=== PATIENT | male | born 1945 | race Caucasian/White ===

== ENCOUNTER 2019-09-27 08:50 | Outpatient (CLI) | payer MEDICARE, SELFPAY ==
--- NOTE | ~2019-09-27 | US_ITS ---
EXAMINATION:US venous doppler LE LT INDICATION:Left leg swelling TECHNIQUE: Multiple grayscale, color flow and Doppler images of the left lower extremity deep venous systems were obtained and reviewed. COMPARISON:No prior studies for comparison. FINDINGS: The common femoral, superficial femoral and popliteal veins demonstrate normal respiratory variation, augmentation and compressibility. Color flow is also seen within the posterior tibial, pe roneal, greater saphenous and profunda veins. IMPRESSION: 1: No lower extremity deep venous thrombosis. Reviewed, dictated and finalized at location A.
[2019-09-27 09:05] LABS: Hematocrit 40.2 % (37.0-46.0); Hemoglobin 13.6 g/dL (12.4-15.3); Mean Corpuscular HGB Conc 33.8 g/dL (32.0-36.0); Mean Corpuscular Hemoglobin 29.9 pg (27.0-31.0); Mean Corpuscular Volume 88.4 fL (78.0-102.0); Mean Platelet Volume 9.4 fl (8.7-11.0); Platelet Count Result 267 K/mm3 (150-420); Red Blood Count 4.55 M/mm3 (4.70-6.10); Red Cell Distribution Width 12.4 % (11.6-14.4); White Blood Count 9.7 K/mm3 (4.8-10.8)
[2019-09-27 09:25] LABS: BNP 24.1 pg/mL (0-100)
[2019-09-27 09:47] LABS: Alanine Aminotransferase 24 U/L (16-63); Albumin Level 3.3 g/dL (3.4-5.0); Alkaline Phosphatase 92 U/L (46-116); Anion Gap 12.5 mmol/L (7-16); Aspartate Amino Transferase 22 U/L (15-37); Bilirubin,Total 0.3 mg/dL (0.00-1.00); Blood Urea Nitrogen 17 mg/dL (7-18); Calcium 8.9 mg/dL (8.5-10.1); Carbon Dioxide 31 mmol/L (21-32); Chloride 95 mmol/L (98-108); Estimated Glomerular Filt Rate > 60; Glucose 246 mg/dL (70-99); Osmolality Calculated 287 mOsm/kg (285-295); Potassium 4.5 mmol/L (3.5-5.1); Sodium 134 mmol/L (136-145); Total Protein 6.5 g/dL (6.4-8.2)
== END 2019-09-27 08:51 | disposition home or self-care (01) ==
LOC: CHSLAB 08:57
PROVIDERS: PCP Family Medicine; Visit Provider Family Medicine
DX: R60.0 Localized edema (principal)
CPT/HCPCS: 36415; 80053; 83880; 85027; 93971

== ENCOUNTER 2019-11-07 06:15 | Emergency (ER) | payer MEDICARE, SELFPAY ==
[2019-11-07 06:15] VITALS: BP 146/68; PULSE 83; RESP 20; TEMP 36.6; O2SAT 97
--- NOTE | 2019-11-07 06:23 | ED.ANXIETY ---
HPI - Anxiety General Chief Complaint: Anxiety Stated Complaint: anxiety Time Seen by Provider: 11/07/19 06:23 Source: patient and EMS Limitations: no limitations History of Present Illness HPI narrative: Patient states that he has been having difficulty sleeping. His PCP recently adjusted his medications for his anxiety. He discontinued his amitriptyline and increased his BuSpar. Patient states been having significant worsening problems with anxiety, unable to sleep only for short periods of time. Patient does not feel there are any particular triggers or worries the be causing his problem. He denies any associated symptoms. He denies any other suicidal or homicidal thoughts. He feels that he just can't relax or sit still. complaint: anxiety Onset (ago): week(s) (2) Severity: severe Quality: constant History of similar episodes: Yes Provoking factors: medication change Relieving factors: nothing Exacerbating factors: nothing Associated symptoms: denies other symptoms Related Data Home Medications Medication Instructions Recorded Confirmed amitriptyline 25 mg tablet 25 mg PO .Bedtime tablet 09/27/19 11/07/19 amlodipine 10 mg tablet 10 mg PO DAILY 09/27/19 11/07/19 aspirin 81 mg tablet,delayed 81 mg PO DAILY 09/27/19 11/07/19 release atenolol 50 mg tablet 50 mg PO DAILY 09/27/19 11/07/19 buspirone 10 mg tablet 10 mg PO TID 09/27/19 11/07/19 gabapentin 800 mg tablet 800 mg PO QID tablet 09/27/19 11/07/19 hydrochlorothiazide 25 mg tablet 25 mg PO DAILY 09/27/19 11/07/19 isosorbide mononitrate 30 mg 30 mg PO DAILY 09/27/19 11/07/19 tablet,extended release 24 hr lisinopril 40 mg tablet 40 mg PO DAILY 09/27/19 11/07/19 tamsulosin 0.4 mg capsule 0.4 mg PO DAILY 09/27/19 11/07/19 tramadol 50 mg tablet 50 mg PO Q6H PRN 09/27/19 11/07/19 trazodone 100 mg tablet 100 mg PO .Bedtime tablet 09/27/19 11/07/19 insulin lispro [Humalog U-100 See Rx Instructions .ROUTE .COMPLEX 11/07/19 11/07/19 Insulin] Allergies Allergy/AdvReac Type Severity Reaction Status Date / Time No Known Allergies Allergy Verified 09/27/19 08:24 Review of Systems Review of Systems: All systems reviewed & are unremarkable except as noted in HPI and below PMFSH Past Medical History Medical History Depression DM2 (diabetes mellitus, type 2) History of [place] (myocardial infarction) Hypercholesteremia Hypertension Insomnia Surgical History Surgical History No pertinent past surgical history Social History Social History Smoking status: Never smoker Additional smoking assessment comments: Quit 30 years ago Additional living arrangements comments: . Additional occupation/education comments: Disabled. Exam Const: General: healthy appearing and no acute distress Nutritional Appearance: well nourished and obese centrally obese Orientation/consciousness: patient oriented x3 HENMT: Head: normal to inspection Ears: external ears normal General nose exam: Normal external nose present Face and sinus: normal facial exam Mouth: Yes lip normal Eyes: Conjunctivae: conjunctivae normal Pupils: Equal, round and reactive pupils present EOM: EOMs intact bilaterally Neck: Neck: normal visual inspection Chest: Chest palpation & inspection: normal inspection of the chest and abnormal inspection of the chest Resp: Effort & Inspection: normal respiratory effort Auscultation: clear to auscultation bilaterally Cardio: Rate: regular rate Rhythm: regular rhythm GI: GI Palp: Yes Soft to palpation Auscultation: normal bowel sounds Skin: General skin exam: normal color Rashes: no rashes Neuro: General: patient oriented x3 and no focal motor deficits Speech: normal speech Extrem: General: normal to inspection and no pedal edema Psych: Appearance: grossly normal and w
[2019-11-07 06:47] LABS: Basophils Absolute Auto 0.06 K/mm3 (0.00-0.10); Basophils Percent Auto 0.7 % (0.0-1.0); Eosinophils Absolute Auto 0.34 K/mm3 (0.02-0.50); Eosinophils Percent Auto 4.1 % (1.0-6.0); Hematocrit 39.2 % (37.0-46.0); Hemoglobin 13.4 g/dL (12.4-15.3); Immature Granulocyte Absolute 0.04 K/mm3 (0.00-0.00); Immature Granulocyte Percent A 0.5 % (0.0-0.0); Lymphocytes Percent Auto 15.6 % (18.0-42.0); Mean Corpuscular HGB Conc 34.2 g/dL (32.0-36.0); Mean Corpuscular Volume 87.7 fL (78.0-102.0); Mean Platelet Volume 9.6 fl (8.7-11.0); Monocytes Absolute Auto 0.71 K/mm3 (0.10-0.90); Monocytes Percent Auto 8.5 % (2.0-11.0); Neutrophils Absolute Auto 5.9 K/mm3 (1.7-7.2); Neutrophils Percent Auto 70.6 % (50.0-70.0); Platelet Count Result 256 K/mm3 (150-420); Red Blood Count 4.47 M/mm3 (4.70-6.10); Red Cell Distribution Width 12.3 % (11.6-14.4); White Blood Count 8.3 K/mm3 (4.8-10.8)
[2019-11-07] MEDS: LORAZEPAM 0.5 MG TABLET ×2 (06:49→06:50)
[2019-11-07 06:57] LABS: Add Urine Microscopic? YES; Appearance Urine Clear (Clear); Bilirubin Urine Negative (Negative); Blood Urine Negative (Negative); Color Urine Yellow (Yellow); Glucose Urine UA 2+ (Negative); Ketones Urine Negative (Negative); Leukocyte Esterase Ur Negative LEU/UL (Negative); Nitrate Urine Negative (Negative); Protein Urine Negative (Negative); Specific Grav Ur 1.015 (1.010-1.020); Urobilinogen Urine 0.2 mg/dL (0.2-1.0)
[2019-11-07 07:01] LABS: Bacteria Urine None seen /hpf; RBC Urine 0-2 /hpf (0-2); WBC Urine 0-3 /hpf (0-3)
[2019-11-07 07:04] LABS: Amphetamine Screen Urine Negative (Negative); Barbiturate Screen Urine Negative (Negative); Benzodiazepines Screen Urine Negative (Negative); Cannabinoid Screen Urine Negative (Negative); Cocaine Screen Urine Negative (Negative); Methadone Screen Urine Negative (Negative); Opiate Screen Urine Negative (Negative); Phencyclidine Screen Urine Negative (Negative)
[2019-11-07 07:07] LABS: Alanine Aminotransferase 24 U/L (16-63); Alkaline Phosphatase 109 U/L (46-116); Aspartate Amino Transferase 18 U/L (15-37); Bilirubin,Total 0.4 mg/dL (0.00-1.00); Blood Urea Nitrogen 13 mg/dL (7-18); Calcium 8.3 mg/dL (8.5-10.1); Carbon Dioxide 30 mmol/L (21-32); Chloride 94 mmol/L (98-108); Estimated CRCL calculation 78 ml/min; Estimated Glomerular Filt Rate > 60; Glucose 224 mg/dL (70-99); Osmolality Calculated 279 mOsm/kg (285-295); Sodium 131 mmol/L (136-145); Thyroid Stimulating Hormone 1.39 uIU/mL (0.36-3.74); Total Protein 6.8 g/dL (6.4-8.2)
[2019-11-07 07:08] LABS: Ethanol < 3 mg/dL (0-6)
--- NOTE | 2019-11-07 07:45 | PC.NURSE ---
Pt. given d/c info on [facility] therapy for f/u c # to call/pamphlet explaining program and info. on f/u c his PMD today. Pt. and state understanding.
[2019-11-07 07:47] VITALS: BP 142/71; PULSE 80; RESP 18; TEMP 36.6; O2SAT 97
== END 2019-11-07 07:54 | disposition home or self-care (01) ==
PROVIDERS: Emergency Provider Emergency Medicine; PCP Family Medicine
DX: F41.9 Anxiety disorder, unspecified (principal); Z79.899 Other long term (current) drug therapy; E11.9 Type 2 diabetes mellitus without complications; E78.00 Pure hypercholesterolemia, unspecified; I10 Essential (primary) hypertension
CPT/HCPCS: 36415; 80053; 80307; 81001; 84443; 85025; 99282; 99283; A9270

== ENCOUNTER 2019-12-24 09:07 | Outpatient (CLI) | payer MEDICARE, SELFPAY ==
[2019-12-24 10:17] LABS: Prostate Specific Antigen 0.7 ng/mL (< OR = 4.0)
== END 2019-12-24 09:08 | disposition home or self-care (01) ==
LOC: CHSLAB 09:10
PROVIDERS: PCP Family Medicine; Visit Provider Family Medicine
DX: R35.0 Frequency of micturition (principal); R30.0 Dysuria
CPT/HCPCS: 36415; 84153; 87086

== ENCOUNTER 2021-09-16 11:03 | Outpatient (CLI) | payer MEDICARE, SELFPAY ==
[2021-09-16 11:36] LABS: Hematocrit 42.2 % (37.0-46.0); Mean Corpuscular HGB Conc 33.2 g/dL (32.0-36.0); Mean Corpuscular Hemoglobin 29.4 pg (27.0-31.0); Mean Corpuscular Volume 88.5 fL (78.0-102.0); Mean Platelet Volume 10.3 fl (8.7-11.0); Platelet Count Result 279 K/mm3 (150-420); Red Blood Count 4.77 M/mm3 (4.70-6.10); Red Cell Distribution Width 12.2 % (11.6-14.4); White Blood Count 9.4 K/mm3 (4.8-10.8)
[2021-09-16 11:49] LABS: Hemoglobin A1C 6.8 % (<5.7)
[2021-09-16 12:01] LABS: Alanine Aminotransferase 21 U/L (16-63); Albumin Level 3.2 g/dL (3.4-5.0); Alkaline Phosphatase 91 U/L (46-116); Anion Gap 5 mmol/L (8-16); Aspartate Amino Transferase 19 U/L (15-37); Bilirubin,Total 0.4 mg/dL (0.00-1.00); Blood Urea Nitrogen 14 mg/dL (7-18); Calcium 8.9 mg/dL (8.5-10.1); Carbon Dioxide 30 mmol/L (21-32); Chloride 93 mmol/L (98-108); Cholesterol 164 mg/dL (0-200); Estimated Glomerular Filt Rate > 60; Glucose 229 mg/dL (70-99); HDL Direct 38 mg/dL (40-60); LDL Cholesterol Calculated 93 mg/dL (<130); Osmolality Calculated 273 mOsm/kg (285-295); Potassium 4.2 mmol/L (3.5-5.1); Sodium 128 mmol/L (136-145); Total Protein 6.5 g/dL (6.4-8.2); Triglycerides 163 mg/dL (0-150)
== END 2021-09-16 11:04 | disposition home or self-care (01) ==
LOC: CHSLAB 11:05
PROVIDERS: PCP Family Medicine; Visit Provider Family Medicine
DX: E11.9 Type 2 diabetes mellitus without complications (principal); I10 Essential (primary) hypertension
CPT/HCPCS: 36415; 80053; 80061; 83036; 85027

== ENCOUNTER 2021-09-30 12:10 | Outpatient (CLI) | payer MEDICARE, SELFPAY ==
[2021-09-30 12:24] LABS: Hematocrit 42.6 % (37.0-46.0); Hemoglobin 14.1 g/dL (12.4-15.3); Mean Corpuscular HGB Conc 33.1 g/dL (32.0-36.0); Mean Corpuscular Volume 90.6 fL (78.0-102.0); Platelet Count Result 268 K/mm3 (150-420); Red Cell Distribution Width 12.6 % (11.6-14.4); White Blood Count 8.9 K/mm3 (4.8-10.8)
[2021-09-30 13:34] LABS: Alanine Aminotransferase 24 U/L (16-63); Albumin Level 3.4 g/dL (3.4-5.0); Alkaline Phosphatase 91 U/L (46-116); Anion Gap 9 mmol/L (8-16); Aspartate Amino Transferase 20 U/L (15-37); Bilirubin,Total 0.3 mg/dL (0.00-1.00); Blood Urea Nitrogen 15 mg/dL (7-18); Calcium 8.9 mg/dL (8.5-10.1); Carbon Dioxide 28 mmol/L (21-32); Chloride 100 mmol/L (98-108); Estimated Glomerular Filt Rate > 60; Glucose 103 mg/dL (70-99); Osmolality Calculated 284 mOsm/kg (285-295); Potassium 4.6 mmol/L (3.5-5.1); Sodium 137 mmol/L (136-145); Total Protein 6.7 g/dL (6.4-8.2)
== END 2021-09-30 12:11 | disposition home or self-care (01) ==
LOC: CHSLAB 12:11
PROVIDERS: PCP Family Medicine; Visit Provider Family Medicine
DX: R35.0 Frequency of micturition (principal)
CPT/HCPCS: 36415; 80053; 85027

== ENCOUNTER 2021-10-06 10:13 | Outpatient (CLI) | payer MEDICARE, SELFPAY ==
--- NOTE | ~2021-10-06 | US_ITS ---
EXAMINATION: US pelvic limited INDICATION: Abnormal frequency of urination TECHNIQUE: Targeted sonographic images of the bladder are obtained pre and post void. COMPARISON: None available FINDINGS: The bladder appears normal. No bladder wall thickening or mass are identified. Prevoid volu me is 295.8 cc. Postvoid volume is 10.1 cc. IMPRESSION: 1. Unremarkable bladder with normal post void residual. Reviewed, dictated and finalized at location F.
== END 2021-10-06 10:14 | disposition home or self-care (01) ==
LOC: CHSIMG 10:15
PROVIDERS: PCP Family Medicine; Visit Provider Family Medicine
DX: R35.0 Frequency of micturition (principal)
CPT/HCPCS: 76857

== ENCOUNTER 2021-12-23 13:27 | Outpatient (CLI) | payer MEDICARE, SELFPAY ==
[2021-12-23 14:30] LABS: Prostate Specific Antigen 0.7 ng/mL (< OR = 4.0)
== END 2021-12-23 13:28 | disposition home or self-care (01) ==
LOC: CHSLAB 13:28
PROVIDERS: PCP Family Medicine; Visit Provider Family Medicine
DX: R35.0 Frequency of micturition (principal)
CPT/HCPCS: 36415; 84153; G0103

== ENCOUNTER 2021-12-31 05:35 | Emergency (ER) | payer MEDICARE, SELFPAY ==
[2021-12-31 05:35] VITALS: BP 189/70; PULSE 76; RESP 18; TEMP 36.5; O2SAT 98
--- NOTE | 2021-12-31 06:04 | PC.NURSE ---
REPORTS SIMILAR EPISODE 2 WEEKS AGO, PMD INCREASED HIS INSOMNIA MEDICATION, SCHEDULED A SLEEP STUDY. PT IS NOW REPORTING HE HURTS ALL OVER , BUT NOTHING OUT OF THE NORMAL FOR HIM. PT HAS HX OF NEUROPATHY.
--- NOTE | 2021-12-31 06:10 | ED.ANXIETY ---
HPI - Anxiety General Chief Complaint: Anxiety Stated Complaint: Insomnia Time Seen by Provider: 12/31/21 05:39 Source: patient, family and RN notes reviewed Mode of arrival: ambulatory Limitations: no limitations History of Present Illness HPI narrative: restless legs with pain, causing insomnia. no acute chest pain or SOB. no falls, head injury or generalized muscle and/or limb activity. Onset (ago): hour(s) (4) Symptoms: extremity numbness/tingling and muscle cramps Severity: moderate Quality: constant History of similar episodes: Yes Provoking factors: none known Relieving factors: medication Exacerbating factors: nothing Related Data Home Medications Medication Instructions Recorded Confirmed amlodipine 10 mg tablet 10 mg PO DAILY 09/27/19 12/31/21 aspirin 81 mg tablet,delayed 81 mg PO DAILY 09/27/19 12/31/21 release (Adult Low Dose Aspirin) gabapentin 800 mg tablet 800 mg PO TID 09/27/19 12/31/21 isosorbide mononitrate 30 mg 30 mg PO DAILY 09/27/19 12/31/21 tablet,extended release 24 hr lisinopril 40 mg tablet 40 mg PO DAILY 09/27/19 12/31/21 insulin lispro 100 unit/mL See Rx Instructions .Route .COMPLEX 11/07/19 12/31/21 subcutaneous solution (Humalog U-100 Insulin) buspirone 10 mg tablet 10 mg PO BID 12/31/21 12/31/21 quetiapine 50 mg tablet (Seroquel) 100 mg PO QHS 12/31/21 12/31/21 tramadol 50 mg tablet 100 mg PO TID 12/31/21 12/31/21 trazodone 50 mg tablet 50 mg PO HS 12/31/21 12/31/21 Allergies Allergy/AdvReac Type Severity Reaction Status Date / Time No Known Allergies Allergy Verified 12/31/21 05:41 Review of Systems Review of Systems: All systems reviewed & are unremarkable except as noted in HPI and below Constitutional: Constitutional: Reports no additional constitutional complaints Eyes: Eyes: Reports no additional eye complaints ENT: Reports system reviewed and no additional complaints, except as documented Cardiovascular: Cardiovascular: Reports no additional cardiovascular complaints Respiratory: Respiratory: Reports no additional respiratory complaints Gastrointestinal: Gastrointestinal: Reports no additional gastrointestinal complaints Musculoskeletal: Musculoskeletal: Reports myalgias and Reports muscle cramps Comments: restless legs. no generalized Integumentary/Breasts: Skin/Breast: Reports system reviewed and no additional complaints, except as docu Neurologic: Reports system reviewed and no additional complaints, except as documented Psychiatric: Psychiatric: Reports no additional psychiatric complaints Endocrine: Endocrine: Reports no additional endocrine complaints Hematologic/Lymphatic: Hematologic/Lymphatic: Reports no additional hematologic/lymphatic complaints Allergic/Immunologic: Allergic/Immunologic: Reports no additional allergic/immunologic complaints PMFSH Past Medical History Medical History Depression DM2 (diabetes mellitus, type 2) History of [place] (myocardial infarction) Hypercholesteremia Hypertension Insomnia Restless leg syndrome Surgical History Surgical History No pertinent past surgical history Social History Social History Smoking status: Former smoker (Quit 3 years ago) Additional smoking assessment comments: Quit 30 years ago Substance use type: does not use Additional living arrangements comments: . Additional occupation/education comments: Disabled. Exam Const: General: healthy appearing and no acute distress Nutritional Appearance: well nourished Orientation/consciousness: patient oriented x3 Limitations: no limitations Other: pt was very anxious and had restless legs, with no other acute limb movements. HENMT: Head: normal to inspection Ears: external ears normal, TM's normal bilaterally and EAC's normal General nose exam
[2021-12-31] MEDS: MORPHINE SULFATE (*CRX) 4 MG/ML INJ IM (06:14)
[2021-12-31 06:16] VITALS: BP 153/63; PULSE 78; RESP 18; O2SAT 98
[2021-12-31] MEDS: GABAPENTIN 400 MG CAPSULE 800 MG PO (06:18)
--- NOTE | 2021-12-31 06:28 | PC.NURSE ---
PT HAS BEEN MEDICATED, IS STANDING AT THE END OF THE STRETCHER MOANING TAPPING HIS FEET ON THE GROUND. AT BEDSIDE. WILL CONTINUE TO MONITOR.
--- NOTE | 2021-12-31 06:42 | PC.NURSE ---
PT IS NOW SITTING ON THE END OF THE STRETCHER SHAKING HIS LEGS AND ARMS, STATES NO IMPROVEMENT WITH MEDICATIONS. WILL CONTINUE TO MONITOR.
[2021-12-31] MEDS: LORazepam (*CRX) 0.5 MG TABLET PO (06:55)
[2021-12-31 07:16] VITALS: BP 168/72; PULSE 74; RESP 20; TEMP 36.6; O2SAT 98
== END 2021-12-31 07:18 | disposition home or self-care (01) ==
PROVIDERS: Emergency Provider Emergency Medicine; PCP Family Medicine
DX: E11.40 Type 2 diabetes mellitus with diabetic neuropathy, unspecified (principal); Z79.4 Long term (current) use of insulin; G25.81 Restless legs syndrome; E78.00 Pure hypercholesterolemia, unspecified; I10 Essential (primary) hypertension; Z87.891 Personal history of nicotine dependence
CPT/HCPCS: 96372; 99283; A9270; J2270

== ENCOUNTER 2022-01-17 10:39 | Emergency (ER) | payer MEDICARE, SELFPAY ==
[2022-01-17] VITALS (43 sets, daily range): BP systolic 59–93; BP diastolic 37–59; PULSE 60–74; RESP 14–34; TEMP 35.8–36.4; O2SAT 69–98
--- NOTE | ~2022-01-17 | CT_ITS ---
EXAMINATION: CT brain wo con DATE: 01/17/2022 11:40 INDICATION: Weakness. TECHNIQUE: Computed tomography (CT) of the head was performed without intravenous contrast. The mA wa s adjusted according to patient size. Iterative reconstruction technique was employed. The dose-lengt h product was 605.33 mGy-cm. COMPARISON: None FINDINGS: There are scattered areas of low attenuation in the cerebral white matter. There is a small old infarct in left frontal lobe. There is no intracranial hemorrhage, acute infarction, or abnormal intracranial mass lesion. The ventricles are normal in size. There is mucosal thickening in the para nasal sinuses. There are old fracture deformities of the nasal bones and nasal septum. The mastoid ai r cells are normal. There is cerumen in the external auditory canals. There are likely changes of ocu lar lens replacement surgeries. IMPRESSION: 1. 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 2. Moderate nonspecific cerebral white matter disease, which likely represents chronic small vessel i schemic disease. Reviewed, dictated and finalized at location A. IMPRESSION: 1. 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 2. Moderate nonspecific cerebral white matter disease, which likely represents chronic small vessel ischemic disease.
--- NOTE | ~2022-01-17 | CT_ITS ---
EXAMINATION: CT chest abdomen pelvis wo con DATE: 01/17/2022 11:46 CDT INDICATION: Weakness, shortness of breath, cough, fatigue and hypotension TECHNIQUE: Computed tomography (CT) of the chest, abdomen, and pelvis was performed without intraveno us contrast. The dose-length product was 1770.03 mGy-cm. Automated exposure control and iterative rec onstruction technique were employed. COMPARISON: None FINDINGS: CHEST CT: There is patchy bilateral airspace disease, consistent with pneumonia, likely superimposed on chronic interstitial fibrosis. No endobronchial lesions. No pneumothorax. There is mild lymphadenopathy in t he subcarinal location, likely reactive. There is atherosclerosis of the aorta and coronary arteries. Heart size normal. ABDOMEN/PELVIS CT: The liver, spleen, pancreas, adrenal glands and kidneys are unremarkable. Gallbladder is present. No abnormal pelvic masses or fluid collections. No free air or free fluid. Bladder is unremarkable. Ther e is atherosclerosis of the aorta without aneurysm. Small hiatal hernia. Nonobstructive bowel pattern . Moderate-severe lumbar spondylosis with grade 2 spondylolisthesis at L5-S1, secondary to bilateral spondylolysis. IMPRESSION: 1. Patchy bilateral airspace disease, consistent with pneumonia, likely superimposed on chronic pulmo nary fibrosis. Reviewed, dictated and finalized at location A. IMPRESSION: 1. Patchy bilateral airspace disease, consistent with pneumonia, likely superim posed on chronic pulmonary fibrosis.
--- NOTE | 2022-01-17 11:09 | ECG_ITS ---
Measurements Intervals [place] Rate: 65 P: 44 [place]: 164 QRS: 49 QRSD: 89 T: 22 QT: 379 QTc: 395 Interpretive Statements SINUS RHYTHM WITH FREQUENT VENTRICULAR PREMATURE COMPLEXES ABNORMAL RHYTHM ECG NO PREVIOUS ECG AVAILABLE FOR COMPARISON Electronically Signed On 01-17-2022 14:49:29 CDT by Manish Barragan M.D.
[2022-01-17 11:29] LABS: Basophils Absolute Auto 0.05 K/mm3 (0.00-0.10); Basophils Percent Auto 0.4 % (0.0-1.0); Eosinophils Absolute Auto 0.02 K/mm3 (0.02-0.50); Eosinophils Percent Auto 0.2 % (1.0-6.0); Hematocrit 57.7 % (37.0-46.0); Hemoglobin 18.9 g/dL (12.4-15.3); Immature Granulocyte Absolute 0.04 K/mm3 (0.00-0.00); Immature Granulocyte Percent A 0.4 % (0.0-0.0); Lymphocytes Absolute Auto 0.68 K/mm3 (1.10-4.50); Lymphocytes Percent Auto 6.1 % (18.0-42.0); Mean Corpuscular HGB Conc 32.8 g/dL (32.0-36.0); Mean Corpuscular Hemoglobin 29.9 pg (27.0-31.0); Mean Corpuscular Volume 91.2 fL (78.0-102.0); Mean Platelet Volume 10.7 fl (8.7-11.0); Monocytes Absolute Auto 0.64 K/mm3 (0.10-0.90); Monocytes Percent Auto 5.7 % (2.0-11.0); Neutrophils Absolute Auto 9.8 K/mm3 (1.7-7.2); Neutrophils Percent Auto 87.2 % (50.0-70.0); Platelet Count Result 118 K/mm3 (150-420); Red Blood Count 6.33 M/mm3 (4.70-6.10); Red Cell Distribution Width 13.1 % (11.6-14.4); White Blood Count 11.2 K/mm3 (4.8-10.8)
[2022-01-17] MEDS: SODIUM CHLORIDE 0.9% IV 1,000 ML 999 ML IV CONT ×3 (11:43→13:53)
[2022-01-17] MEDS: methylPREDNISolone SOD SUCC 125 MG VIAL IV PUSH (11:50)
[2022-01-17 11:51] LABS: Lactic Acid Reflex 3.1 mmol/L (0.4-2.0)
--- NOTE | 2022-01-17 11:52 | PC.NURSE ---
PT HAS RETURNED FROM CT, IVF INFUSING ORDERED WITHOUT DIFFICULTY. PT IS AWAITING RESPIRATORY FOR INHALERS AND EKG. AT BEDSIDE. PT DENIES ANY NEEDS OR COMPLAINTS. PT IS SITTING STRAIGHT UP ON STRETCHER WITH O2 IN PLACE. PT REMAINS TACHYEPNIC. WILL CONTINUE TO MONITOR. PT IS HYPOTENSIVE, ERP IS AWARE, IVF INFUSING.
[2022-01-17 12:00] LABS: Alanine Aminotransferase 57 U/L (16-63); Albumin Level 2.3 g/dL (3.4-5.0); Alkaline Phosphatase 86 U/L (46-116); Anion Gap 10 mmol/L (8-16); Aspartate Amino Transferase 215 U/L (15-37); Bilirubin,Total 0.5 mg/dL (0.00-1.00); Blood Urea Nitrogen 60 mg/dL (7-18); Calcium 8.8 mg/dL (8.5-10.1); Carbon Dioxide 25 mmol/L (21-32); Chloride 100 mmol/L (98-108); Estimated CRCL calculation 28 ml/min; Estimated Glomerular Filt Rate 23; Ethanol < 3 mg/dL (0-6); Glucose 188 mg/dL (70-99); Osmolality Calculated 301 mOsm/kg (285-295); Potassium 4.9 mmol/L (3.5-5.1); Sodium 135 mmol/L (136-145); Total Protein 6.4 g/dL (6.4-8.2); Troponin I 26.8 ng/L (0.00-60.4)
[2022-01-17 12:27] LABS: Base Excess ABG -3.8 mmol/L (0-2); HCO3 ABG 22.1 mmol/L (23-29); Oxygen Content ABG 15.9 %vol (16.0-22.0); Oxygen Saturation ABG 85.2 % (95-97); Oxyhemoglobin 84.9 % (94-100); PCO2 ABG 43.1 mmHg (35-45); PO2 ABG 59.5 mmHg (75-85); Total Hemoglobin 13.3 g/dL (12.0-18.0); pH ABG 7.33 (7.35-7.45)
--- NOTE | 2022-01-17 12:28 | PC.NURSE ---
LAB RETURNS TO BEDSIDE FOR ANOTHER ATTEMPT AT ABG COLLECTION. AT BEDSIDE. PT DENIES ANY NEEDS, DOES WANT TO SIT ON THE SIDE OF THE STRETCHER, ADVISED AGAINST THIS DUE TO BP AND DIZZINESS. PT HAS IVF INFUSING ORDERED WITHOUT DIFFICULTY. WILL CONTINUE TO MONITOR.
[2022-01-17 12:29] LABS: Device NASAL CANNULA; Modified Allen's Test Pass; Site Drawn RIGHT RADIAL
--- NOTE | 2022-01-17 12:36 | PC.NURSE ---
WATER PROVIDED TO PT. IVF COMPLETED. WILL CONTINUE TO MONITOR.
[2022-01-17 12:57] LABS: Influenza A QL RT-PCR Negative (Negative); Influenza B QL RT-PCR Negative (Negative); SARS-CoV-2 RNA PCR Negative (Negative)
[2022-01-17] MEDS: ALBUTEROL SULFATE (*SP) INHALER 2 PUFF INHALATION (13:03)
[2022-01-17] MEDS: UMECLIDINIUM BROMIDE 62.5 MCG ELLIPTA 1 PUFF INHALATION (13:04)
[2022-01-17] MEDS: AZITHROMYCIN 250 MG TABLET 500 MG PO (13:35)
[2022-01-17] MEDS: guaiFENesin 12 HR 600 MG TABCR PO (13:35)
--- NOTE | 2022-01-17 13:46 | PC.NURSE ---
PT WAS FOUND SITTING ON THE END OF THE STRETCHER, O2 OFF, MONITORS OFF. HAD LEFT, NO ONE WAS AWARE. PT STATES HIS BUTTOCKS AND BACK HURT FROM THE STRETCHER. PT STATES HE WANTS TO SIT IN THE CHAIR. PT ASSISTED TO CHAIR, O2 APPLIED AT 3L, MONITOR REAPPLIED. PT BP REMAINS LOW, ERP NOTIFIED AND MORE IVF ORDERED. HAS RETURNED. HOSPITALIST AT [facility] CONSULTED, DECLINES PT. HEALTH INSURANCE ADJUSTER NAKUL AT [facility] NOTIFIED AT THIS TIME. AWAITING RETURN CALL AT PRESENT. PT CURRENTLY HAS IVF AND IV MEDICATIONS INFUSING WITHOUT DIFFICULTY.
[2022-01-17 14:25] LABS: Reflex Lactic Acid Yes or No Add Lactic
--- NOTE | 2022-01-17 14:25 | PC.NURSE ---
TAMI ORELLANA RETURNS CALL AT THIS TIME.
--- NOTE | 2022-01-17 14:33 | PC.NURSE ---
PT HAS BEEN ACCEPTED TO [facility]. AWAITING ROOM ASSIGNMENT.
--- NOTE | 2022-01-17 14:35 | ED.WEAKNESS ---
HPI - Weakness General Chief complaint: Weakness Stated complaint: Blood pressure, and check heart Time Seen by Provider: 01/17/22 10:43 Source: patient, family, RN notes reviewed and old records reviewed Mode of arrival: wheelchair Limitations: no limitations History of Present Illness HPI Narrative: increasing SOB MD Complaint: generalized weakness and lack of energy Onset (ago): day(s) (2) Duration: constant and progressively worsening Location: generalized Severity: moderate Severity scale (1-10): 4 Relieving factors: none Exacerbating factors: exertion Associated symptoms: denies other symptoms, chest pain and loss of appetite Related Data Home Medications Medication Instructions Recorded Confirmed amlodipine 10 mg tablet 10 mg PO DAILY 09/27/19 01/17/22 aspirin 81 mg tablet,delayed 81 mg PO DAILY 09/27/19 01/17/22 release (Adult Low Dose Aspirin) isosorbide mononitrate 30 mg 30 mg PO DAILY 09/27/19 01/17/22 tablet,extended release 24 hr lisinopril 40 mg tablet 40 mg PO DAILY 09/27/19 01/17/22 insulin lispro 100 unit/mL See Rx Instructions .Route .COMPLEX 11/07/19 01/17/22 subcutaneous solution (Humalog U-100 Insulin) buspirone 10 mg tablet 10 mg PO BID 12/31/21 01/17/22 tramadol 50 mg tablet 100 mg PO TID 12/31/21 01/17/22 trazodone 50 mg tablet 50 mg PO HS 12/31/21 01/17/22 diazepam 5 mg tablet 5 mg PO PRN PRN Anxiety 01/17/22 01/17/22 tamsulosin 0.4 mg capsule 0.4 mg PO DAILY 01/17/22 01/17/22 Allergies Allergy/AdvReac Type Severity Reaction Status Date / Time No Known Allergies Allergy Verified 01/17/22 11:00 Review of Systems Review of Systems: All systems reviewed & are unremarkable except as noted in HPI and below Constitutional: Constitutional: Reports no additional constitutional complaints Eyes: Eyes: Reports no additional eye complaints ENT: Reports system reviewed and no additional complaints, except as documented Cardiovascular: Cardiovascular: Reports no additional cardiovascular complaints Respiratory: Respiratory: Reports no additional respiratory complaints Gastrointestinal: Gastrointestinal: Reports no additional gastrointestinal complaints Musculoskeletal: Musculoskeletal: Reports no additional musculoskeletal complaints Integumentary/Breasts: Skin/Breast: Reports system reviewed and no additional complaints, except as docu Neurologic: Reports system reviewed and no additional complaints, except as documented Psychiatric: Psychiatric: Reports no additional psychiatric complaints Endocrine: Endocrine: Reports no additional endocrine complaints Hematologic/Lymphatic: Hematologic/Lymphatic: Reports no additional hematologic/lymphatic complaints Allergic/Immunologic: Allergic/Immunologic: Reports no additional allergic/immunologic complaints [facility] Past Medical History Medical History Depression DM2 (diabetes mellitus, type 2) History of NC (myocardial infarction) Hypercholesteremia Hypertension Hypotension Insomnia Pneumonia Restless leg syndrome Surgical History Surgical History No pertinent past surgical history Social History Social History Smoking status: Former smoker (Quit 3 years ago) Additional smoking assessment comments: Quit 30 years ago Substance use type: does not use Additional living arrangements comments: . Additional occupation/education comments: Disabled. Exam Const: General: no acute distress and diaphoretic Nutritional Appearance: obese Orientation/consciousness: patient oriented x3 Limitations: no limitations HENMT: Head: normal to inspection Ears: external ears normal, TM's normal bilaterally and EAC's normal General nose exam: Normal external nose present and Normal nares present Face and sinus: normal facial exam and sinuses nontender Mouth:
[2022-01-17 15:04] LABS: Lactic Acid 0.7 mmol/L (0.4-2.0)
--- NOTE | 2022-01-17 15:10 | PC.NURSE ---
PT IS TO BE TRANSFERRED TO ROOM 213 AT [facility]. [facility] NOTIFIED AT THIS TIME.
--- NOTE | 2022-01-17 15:39 | PC.NURSE ---
PT WAS ACCEPTED UNDER DR GARCIA TO ROOM 213 AT [facility]. BLADDER SCAN WAS COMPLETED, 489ML NOTED IN BLADDER, STRAIGHT CATH COMPLETED 550ML DARK ORANGE OUTPUT NOTED. PT TOLERATED WELL.
[2022-01-17 15:42] LABS: Add Urine Microscopic? YES; Appearance Urine Clear (Clear); Bilirubin Urine Negative (Negative); Blood Urine Negative (Negative); Color Urine Yellow (Yellow); Glucose Urine UA Negative (Negative); Ketones Urine Trace (Negative); Leukocyte Esterase Ur Negative (Negative); Nitrate Urine Negative (Negative); Protein Urine Negative (Negative)
[2022-01-17 15:47] LABS: Amorphous Sediment Urine Few; Bacteria Urine None seen /hpf; RBC Urine None seen /hpf (0-2); Squamous Epithelial Cell Urine Rare /hpf (Few); WBC Urine None seen /hpf (0-3)
[2022-01-17 15:50] LABS: Amphetamine Screen Urine Negative (Negative); Barbiturate Screen Urine Negative (Negative); Benzodiazepines Screen Urine Positive (Negative); Cannabinoid Screen Urine Negative (Negative); Cocaine Screen Urine Negative (Negative); Methadone Screen Urine Negative (Negative); Opiate Screen Urine Negative (Negative); Phencyclidine Screen Urine Negative (Negative)
== END 2022-01-17 15:40 | disposition short-term general hospital (02) ==
PROVIDERS: Emergency Provider Emergency Medicine; PCP Family Medicine
DX: A41.9 Sepsis, unspecified organism (principal); E86.0 Dehydration; Z20.822 Contact with and (suspected) exposure to COVID-19; J18.9 Pneumonia, unspecified organism; E11.9 Type 2 diabetes mellitus without complications; E78.00 Pure hypercholesterolemia, unspecified; I10 Essential (primary) hypertension; Z87.891 Personal history of nicotine dependence; Z79.899 Other long term (current) drug therapy; Z79.4 Long term (current) use of insulin
CPT/HCPCS: 36415; 36600; 51701; 70450; 71250; 74176; 80053; 80307; 81001; 82805; 83605; 84484; 85025; 87040; 87502; 93005; 94640; 96361; 96365; 96375; 99285; A9270; C9803; J0696; J2930; J7030; U0003; U0005

== ENCOUNTER 2022-01-17 17:09 | Inpatient (IN) | payer MEDICARE, SELFPAY ==
[2022-01-17] VITALS (22 sets, daily range): BP systolic 77–105; BP diastolic 32–64; PULSE 64–73; RESP 13–20; TEMP 36.3; O2SAT 89–95; BMI 36.8
--- NOTE | ~2022-01-17 | US_ITS ---
US art doppler w press LE BI INDICATION: Pedal pulses TECHNIQUE: Segmental pressures and plethysmographic and Doppler waveforms of the brachial and lower e xtremity arteries were obtained. COMPARISON: None. FINDINGS: Right and left brachial artery pressures of 147 mm Hg and 147 mm Hg, respectively, are concordant (no rmal difference <= 30 mmHg). The right ankle-brachial index (MARCOS) is 0.67 (normal >= 0.9-1.0). The right great toe-brachial index (TBI) is 0.57 (normal >= 0.60). The left MARCOS is 0.76. The left TBI is 0.69. IMPRESSION: 1. Mildly decreased ankle brachial indices consistent with mild peripheral arterial disease. Reviewed, dictated and finalized at location A. IMPRESSION: 1. Mildly decreased ankle brachial indices consistent with mild peripheral cherise rial disease.
--- NOTE | ~2022-01-17 | US_ITS ---
US renal BI 01/18/2022 10:54 Procedure: Realtime transabdominal ultrasound of the kidneys and bladder. Indication: Acute renal insufficiency Comparison: CT dated 01/17/2022 Findings: Renal echotexture is normal bilaterally without hydronephrosis, contour deforming mass or r enal calculus. The right kidney measures 10.7 cm and left kidney measures 13.2 cm. There is a Liang c atheter. Impression: 1: Unremarkable renal ultrasound. No stones, masses or hydronephrosis. Reviewed, dictated and finalized at location A. Impression: 1: Unremarkable renal ultrasound. No stones, masses or hydronephrosis.
--- NOTE | ~2022-01-17 | XR_ITS ---
EXAMINATION: XR chest 1V portable DATE: 01/19/2022 05:39 INDICATION: Pneumonia. TECHNIQUE: A single frontal view of the chest was obtained on 2 radiographs. COMPARISON: Chest CT 01/17/2022, chest single view 01/18/2022 FINDINGS: The lung volumes are normal. There is a diffuse interstitial pattern in the lungs with a pe ripheral and lower lung predominance. A calcified right lung nodule is consistent with old granulomat ous disease. There are mild airspace opacities in the mid and lower lung zones. No pleural effusion o r pneumothorax. Cardiomegaly is noted. IMPRESSION: 1. Stable diffuse lung disease, likely a combination of pneumonia and chronic lung disease. 2. Cardiomegaly. Reviewed, dictated and finalized at location A. IMPRESSION: 1. Stable diffuse lung disease, likely a combination of pneumonia and chronic l stacey disease. 2. Cardiomegaly.
--- NOTE | ~2022-01-17 | XR_ITS ---
EXAMINATION: XR chest 1V portable INDICATION: Pneumonia TECHNIQUE: Portable AP chest at 0612 hours COMPARISON: 01/22/2022 FINDINGS: Diffuse interstitial and airspace opacities persist throughout all lung zones without signi ficant change. No pleural effusion or pneumothorax. Cardiomegaly is noted. IMPRESSION: 1. Stable diffuse lung disease, likely pneumonia on a background of chronic interstitial lung disease . 2. Cardiomegaly. Reviewed, dictated and finalized at location A. IMPRESSION: 1. Stable diffuse lung disease, likely pneumonia on a background of chronic int erstitial lung disease. 2. Cardiomegaly.
--- NOTE | ~2022-01-17 | XR_ITS ---
EXAMINATION: XR chest 1V portable DATE: 01/18/2022 05:32 INDICATION: Shortness of breath. Cough. TECHNIQUE: A single frontal view of the chest was obtained. COMPARISON: Chest 2 views 09/18/2012, chest CT 01/17/2022 FINDINGS: There is chronic mild elevation of right hemidiaphragm. There are mild patchy airspace opac ities in the mid and lower lung zones with a peripheral predominance. No pleural effusion or pneumoth orax. The heart size is normal. IMPRESSION: 1. Patchy airspace opacities in the mid and lower lung zones with a peripheral predominance, consiste nt with pneumonia. Reviewed, dictated and finalized at location A. IMPRESSION: 1. Patchy airspace opacities in the mid and lower lung zones with a peripheral predominance, consistent with pneumonia.
--- NOTE | ~2022-01-17 | XR_ITS ---
EXAMINATION: XR chest 1V portable INDICATION: Pneumonia TECHNIQUE: Portable AP chest at 0602 hours COMPARISON: 01/21/2022 FINDINGS: Interstitial and airspace opacities persist throughout all lung zones without significant c hange. No pleural effusion or pneumothorax. Cardiomegaly is noted. IMPRESSION: 1. Stable diffuse lung disease, likely pneumonia superimposed on chronic interstitial lung disease. 2. Cardiomegaly. Reviewed, dictated and finalized at location A. IMPRESSION: 1. Stable diffuse lung disease, likely pneumonia superimposed on chronic inters titial lung disease. 2. Cardiomegaly.
--- NOTE | ~2022-01-17 | XR_ITS ---
XR abdomen/kub 1V 01/20/2022 20:04 INDICATION: Constipation TECHNIQUE: KUB COMPARISON: None FINDINGS: Bowel gas pattern is normal. There are colonic fecal loading. There is no evidence of free air, mass, organomegaly, ascites or obstruction. No abnormal calculi are seen. The bones appear int act. There is mild lumbar spondylosis. IMPRESSION: 1: No acute abdominal abnormality identified. Reviewed, dictated and finalized at location A.
--- NOTE | ~2022-01-17 | XR_ITS ---
EXAMINATION: XR chest 1V portable DATE: 01/21/2022 05:43 INDICATION: Pneumonia. TECHNIQUE: A single frontal view of the chest was obtained. COMPARISON: Chest single view 01/20/2022 FINDINGS: The lung volumes are normal. There are airspace and interstitial opacities in the mid and l ower lung zones. No pleural effusion or pneumothorax. Cardiomegaly is noted. IMPRESSION: 1. Stable diffuse disease, likely a combination of pneumonia and chronic lung disease. 2. Cardiomegaly. Reviewed, dictated and finalized at location A. IMPRESSION: 1. Stable diffuse disease, likely a combination of pneumonia and chronic lung d isease. 2. Cardiomegaly.
--- NOTE | ~2022-01-17 | XR_ITS ---
EXAMINATION: XR chest 1V portable DATE: 01/20/2022 06:16 INDICATION: Pneumonia. TECHNIQUE: A single frontal view of the chest was obtained. COMPARISON: Chest single view 01/19/2022 FINDINGS: The lung volumes are normal. There are airspace and interstitial opacities in all lung zone s bilaterally. No pleural effusion or pneumothorax. Cardiomegaly is noted. IMPRESSION: 1. Stable diffuse lung disease, likely a combination of pneumonia and chronic lung disease. 2. Cardiomegaly. Reviewed, dictated and finalized at location A. IMPRESSION: 1. Stable diffuse lung disease, likely a combination of pneumonia and chronic l stacey disease. 2. Cardiomegaly.
[2022-01-17] MEDS: SODIUM CHLORIDE 0.9% IV 1,000 ML 150 ML IV CONT (17:00)
--- NOTE | 2022-01-17 17:03 | PC.NURSE ---
Pt received by ambulance at 1610 to room 213- pt drowsy- but awakens easily and is oriented x4 O2 @ 6 l/nc- spo2 88-90%; - SBP 80's on arrival to unit EMS had started another liter NS bolus in route for lo BP. ; Monitor SR- pt oriented to room and routines of floor- acknowledged understanding
[2022-01-17 17:50] LABS: Basophils Percent Auto 0.2 % (0.2-1.2); Eosinophils Percent Auto 0.1 % (0-4.4); Hematocrit 32.3 % (42.0-52.0); Hemoglobin 10.1 g/dL (14.0-18.0); Immature Granulocyte Absolute 0.23 K/mm3 (0.00-0.031); Immature Granulocyte Percent A 1.3 % (0-0.5); Lymphocytes Percent Auto 3.4 % (18.3-44.2); Mean Corpuscular HGB Conc 31.3 g/dl (32-36); Mean Corpuscular Hemoglobin 29.5 pg (26-34); Mean Corpuscular Volume 94.4 fl (80-100); Mean Platelet Volume 10.7 fl (7.4-10.4); Monocytes Absolute Auto 0.5 K/mm3 (0.1-0.6); Monocytes Percent Auto 2.6 % (2.6-8.5); Neutrophils Absolute Auto 16.3 K/mm3 (1.3-6.7); Neutrophils Percent Auto 92.4 % (45.5-73.1); Platelet Count Result 239 k/mm3 (150-375); Red Blood Count 3.42 M/mm3 (4.6-6.20); Red Cell Distribution Width 13.5 % (11.5-14.5); White Blood Count 17.6 K/mm3 (4.5-10.0)
[2022-01-17 18:00] LABS: Magnesium 2.1 mg/dL (1.6-2.3)
[2022-01-17 18:04] LABS: Ovalocytes 1+ (NORMAL); Platelet Estimate Adequate (Adequate)
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
[2022-01-17 18:20] LABS: Glucose Point of Care 163 mg/dl (65-105)
[2022-01-17 20:27] LABS: Appearance Urine Clear (Clear); Bilirubin Urine 2+ (Negative); Blood Urine 2+ (Negative); Color Urine Yellow (Yellow); Glucose Urine UA Negative (Negative); Ketones Urine Trace mg/dL (Negative); Leukocyte Esterase Ur Trace LEU/UL (Negative); Nitrate Urine Negative (Negative); Protein Urine 1+ mg/dL (Negative); Specific Grav Ur >= 1.030 (1.001-1.035)
[2022-01-17] MEDS: ENOXAPARIN 40 MG/0.4 ML SYRINGE SUB-Q (20:27)
[2022-01-17 20:36] LABS: Bacteria Urine Trace /hpf; Calcium Oxalate Crystals Urine Present /hpf; Hyaline Casts Urine 50+ /lpf; Mucus Urine Few /lpf; RBC Urine 21-50 /hpf (0-2); Squamous Epithelial Cell Urine Many /hpf (Few); WBC Clumps Urine Present /HPF; WBC Urine 21-30 /hpf
[2022-01-17 20:37] LABS: Add Urine Microscopic? YES
[2022-01-17 21:00] LABS: Glucose Point of Care 236 mg/dl (65-105)
[2022-01-17] MEDS: SODIUM CHLORIDE 0.9% IV 1,000 ML 999 ML IV CONT (21:04)
--- NOTE | 2022-01-17 21:25 | PC.NURSE ---
This patient, Bacilio Penn, was transferred to ICU 1 on 01/17/22 at 2125. Personal belongings sent with patient. Report given to KARTIK Choi. Appropriate documentation sent with patient. Patient's called and updated on condition and aware of transfer to ICU.
--- NOTE | 2022-01-17 21:41 | PC.NURSE ---
Sil Betancourt NP called to bedside for central line placement. En route.
--- NOTE | 2022-01-17 21:42 | PC.NURSE ---
This patient, Bacilio Penn, was received from [facility] on 01/17/22 at 2125. Patient/family oriented to unit policies and routines.
[2022-01-17] MEDS: NOREPINEPHRINE 8 MG/D5W 250 ML 8 MG/250 ML BAG 9.38 MG IV CONT (22:28)
--- NOTE | 2022-01-17 22:36 | P.PNCROSS_ITS ---
Event Note Event Note Event Note: I called Dr. Domínguez pipe wrapping machine operator at 9:00 p.m.. Patient's blood pressure would increase slightly with IV boluses. The patient is on his 5th IV bolus. Patient is septic from pneumonia. the pipe wrapping machine operator agreed that the patient needed to go to ICU and have a a central line placed. Patient will also need to be on Levophed.
--- NOTE | 2022-01-17 22:36 | PM.EVENT ---
Event Note Event Note Event Note: I called Dr. Domínguez publications writer at 9:00 p.m.. Patient's blood pressure would increase slightly with IV boluses. The patient is on his 5th IV bolus. Patient is septic from pneumonia. the publications writer agreed that the patient needed to go to ICU and have a a central line placed. Patient will also need to be on Levophed.
--- NOTE | 2022-01-17 22:40 | P.PNCROSS_ITS ---
Event Note Event Note Event Note: I called the therapeutic radiologist at 9:00 p.m. explain to the therapeutic radiologist that the pat ient was septic and that his blood pressure continued to drop. He has had 4 boluses and is on his 5th IV bolus. The therapeutic radiologist agreed that the patient needed to go to the ICU for a central line and possible Levophed. The patient was transferred to ICU.
--- NOTE | 2022-01-17 22:40 | PM.EVENT ---
Event Note Event Note Event Note: I called the inside account representative at 9:00 p.m. explain to the inside account representative that the patient was septic and that his blood pressure continued to drop. He has had 4 boluses and is on his 5th IV bolus. The inside account representative agreed that the patient needed to go to the ICU for a central line and possible Levophed. The patient was transferred to ICU.
--- NOTE | 2022-01-17 22:41 | WPDPROCEDUR ---
Procedures Central Line Placement Left Femoral: Central Line Date: 01/17/22 Central Line Time: 22:00 Consent: I have discussed with the patient and/or surrogate, the non-emergent placement of a central venous catheter, including its clinical necessity/indication and associated potential risks and complications. The patient and/or surrogate understand(s) and acknowledge(s) the need to proceed with central venous catheter insertion as an important element of the patient's clinical management. Time Out Performed: Yes Patient Position: supine Patient placed on monitor/pulse ox: Yes Provider Prep: Max. sterile barrier precautions Central line prep: 2% Chlorhexidine scrub and sterile full body sheet applied Local anesthesia used: lidocaine 1% Amount of anesthesia used (ml): 8 Sterile US Technique with sterile gel/sterile probe covers: Yes Central line lumen inserted: triple Vincentian: 7 Length (cm): 16 Depth of Insertion (cm): 15 Post Procedure: sutured in place, good blood return, all ports aspirated, flushed, capped, transparent dressing and hemostatic product Post procedure x-ray: other ( No x-ray needed as this is a femoral) Patient tolerated procedure: well Complications: none
[2022-01-18] VITALS (96 sets, daily range): BP systolic 83–149; BP diastolic 39–101; PULSE 68–87; RESP 14–29; TEMP 36.5–37.4; O2SAT 91–99
--- NOTE | 2022-01-18 00:28 | PCRCNOTE ---
2000 updraft tx was omitted due to patient being out of room when therapist arrived. Therapist then found out patient was getting sterile procedure.
[2022-01-18] MEDS: IPRATROPIUM BR 0.02% INH SOLN 0.5 MG/2.5 ML VIAL INHALATION ×2 (00:31→14:11)
[2022-01-18] MEDS: ALBUTEROL SULFATE NEB 2.5 MG/3 ML INH INHALATION ×2 (00:32→14:11)
[2022-01-18] MEDS: SODIUM CHLORIDE 0.9% IV 1,000 ML 75 ML IV CONT (02:04)
[2022-01-18] MEDS: VASOPRESSIN INJ 100 UNITS in DEXTROSE 5% 95 ML IV CONT (03:48)
[2022-01-18 04:24] LABS: Basophils Absolute Auto 0.1 K/mm3 (0.0-0.1); Basophils Percent Auto 0.3 % (0.2-1.2); Hematocrit 36.8 % (42.0-52.0); Hemoglobin 11.6 g/dL (14.0-18.0); Immature Granulocyte Absolute 0.82 K/mm3 (0.00-0.031); Lymphocytes Absolute Auto 0.72 K/mm3 (0.9-3.2); Lymphocytes Percent Auto 2.6 % (18.3-44.2); Mean Corpuscular HGB Conc 31.5 g/dl (32-36); Mean Corpuscular Hemoglobin 30.4 pg (26-34); Mean Corpuscular Volume 96.6 fl (80-100); Mean Platelet Volume 10.7 fl (7.4-10.4); Monocytes Absolute Auto 0.9 K/mm3 (0.1-0.6); Monocytes Percent Auto 3.3 % (2.6-8.5); Neutrophils Percent Auto 90.8 % (45.5-73.1); Platelet Count Result 297 k/mm3 (150-375); Red Blood Count 3.81 M/mm3 (4.6-6.20); Red Cell Distribution Width 13.3 % (11.5-14.5); White Blood Count 27.6 K/mm3 (4.5-10.0)
[2022-01-18 04:35] LABS: Lactic Acid Reflex 1.6 mmol/L (0.7-2.0); Magnesium 2.2 mg/dL (1.6-2.3); Phosphorus 8.6 mg/dL (2.5-4.5)
[2022-01-18 04:37] LABS: Hemoglobin A1C 6.8 % (<5.7)
[2022-01-18 04:51] LABS: Alanine Aminotransferase 67 U/L (6-50); Albumin Level 2.9 g/dL (3.5-5.1); Alkaline Phosphatase 93 U/L (38-126); Anion Gap 18 mmol/L (8-16); Aspartate Amino Transferase 214 U/L (17-59); Bilirubin,Total 0.6 mg/dL (0.2-1.3); Blood Urea Nitrogen 75 mg/dL (9-20); Calcium 7.9 mg/dL (8.4-10.2); Carbon Dioxide 13 mmol/L (22-30); Chloride 100 mmol/L (98-107); Estimated CRCL calculation 26 ml/min; Estimated Glomerular Filt Rate 21; Glucose 376 mg/dL (65-110); Potassium 6.6 mmol/L (3.4-5.0); Sodium 131 mmol/L (137-145)
[2022-01-18] MEDS: NOREPINEPHRINE 8 MG/D5W 250 ML 8 MG/250 ML BAG 45 MG IV CONT (04:56)
[2022-01-18] MEDS: INSULIN HUMAN REGULAR (*BKC) 100 UNITS/ML 10 UNITS IV PUSH (05:22)
[2022-01-18] MEDS: SODIUM BICARBONATE 8.4% 50 MEQ/50 ML SYRINGE IV PUSH ×2 (05:23)
[2022-01-18] MEDS: CENTRAL LINE FLUSH 10 ML IV PUSH ×4 (05:47→21:10)
[2022-01-18] MEDS: ALBUTEROL SULFATE NEB 2.5 MG/3 ML INH 10 MG INHALATION (05:56)
[2022-01-18] MEDS: CALCIUM GLUCONATE 1,000 MG/10 ML VIAL 1000 MG IV PUSH (05:58)
[2022-01-18 06:07] LABS: Glucose Point of Care 382 mg/dl (65-105)
[2022-01-18 06:36] LABS: Glucose Point of Care 386 mg/dl (65-105)
[2022-01-18 07:19] LABS: Glucose Point of Care 383 mg/dl (65-105)
[2022-01-18 07:56] LABS: Anion Gap 21 mmol/L (8-16); Blood Urea Nitrogen 79 mg/dL (9-20); Calcium 7.7 mg/dL (8.4-10.2); Carbon Dioxide 13 mmol/L (22-30); Chloride 100 mmol/L (98-107); Estimated CRCL calculation 29 ml/min; Estimated Glomerular Filt Rate 24; Glucose 392 mg/dL (65-110); Potassium 5.3 mmol/L (3.4-5.0); Sodium 134 mmol/L (137-145)
[2022-01-18] MEDS: KCL 20 MEQ/D5/0.45% SOD CHL 1,000 ML 150 ML IV CONT ×2 (08:28→14:29)
[2022-01-18] MEDS: HYDROCORTISONE SODIUM SUCCINATE 100 MG/2 ML VIAL IV PUSH ×3 (08:29→21:08)
--- NOTE | 2022-01-18 08:35 | WPDCNINT ---
Assessment and Plan Assessment and plan (1) Septic shock: Code(s): A41.9 - Sepsis, unspecified organism; R65.21 - Severe sepsis with septic shock Status: Acute Assessment and Plan: Patient presented with generalized weakness, was found to be hypotensive, CT scan of the chest abdomen pelvis showed bilateral pneumonia, patient also complaining of bouts of coughing, found to be in acute kidney injury with hyperglycemia and DKA -patient received 4-5 L IV fluid bolus, central line was inserted and patient started on vasopressors -currently on Levophed and vasopressin -added stress dose steroids -Solu-Cortef -decreased urine output but slight improvement in creatinine -continue ceftriaxone, azithromycin (01/17) will add vancomycin (01/18) -maintain MAP > than 65 mmHg for adequate end organ perfusion -monitor renal function and urine output (2) Pneumonia: Code(s): J18.9 - Pneumonia, unspecified organism Status: Acute Assessment and Plan: 01/17/2022 CT scan of the chest abdomen and pelvis at the outside hospital showed she bilateral airspace disease consistent with pneumonia likely superimposed on chronic pulmonary fibrosis -patient with leukocytosis pulse, cough -continue antibiotics as above -will add anti-tussive meds (3) Diabetic ketoacidosis: Code(s): E11.10 - Type 2 diabetes mellitus with ketoacidosis without coma Status: Acute Assessment and Plan: Patient has a history of diabetes type 2 on insulin pump -pump is currently disconnected, -patient with diabetic ketoacidosis with hyperglycemia, with an anion gap metabolic acidosis -patient started on insulin infusion (4) Acute kidney injury: Code(s): N17.9 - Acute kidney failure, unspecified Status: Acute Assessment and Plan: Acute kidney injury likely related to septic shock, hypovolemia, hypotension, decreased p.o. intake, home medications (lisinopril, carvedilol, amlodipine, isosorbide mononitrate -patient adequately fluid-resuscitated -on vasopressors, will maintain MAP > 65 mmHg for adequate renal perfusion -continue to monitor renal function, electrolytes urine output -will check urine lytes and renal ultrasound, CK level on urine eosinophils Plan Check renal ultrasound Urine lytes Add vancomycin Stress dose steroids Additional Plan DVT prophylaxis: Renally dosed enoxaparin Stress ulcer prophylaxis: Protonix Nutrition: Clear liquid diet Code status: Full code Critical care time spent: 53 minutes Discussed with patient updated with his condition and plan of care. I answered all questions This dictation may have been done utilizing a voice recognition system. Attempts have been made to correct errors. However, there may be uncorrected grammatical, spelling, and recognition errors present. Due to a high probability of clinically significant, life threatening deterioration, the patient required my highest level of preparedness to intervene emergently and I personally spent this critical care time directly and personally managing the patient. This critical care time included obtaining a history; examining the patient; pulse oximetry; ordering and review of studies; arranging urgent treatment with development of a management plan; evaluation of patient's response to treatment; frequent reassessment; and discussions with other providers. It was exclusive of separately billable procedures and treating other patients and teaching time. Please see Assessment and Plan section and the rest of the note for further information on patient assessment and treatment [employer] Consult Note Consult date: 01/18/22 Reason for consult: Septic shock, pneumonia, generalized weakness hypotension, acute kidney injury with leukocytosis, diabetic ketoacidosis HPI: Bacilio Penn is a 76 year old male past medical history of diabetes type 2, history of family, depression, hypercholesterolemia, essential hypertension, pneumonia, rest
[2022-01-18 08:36] LABS: Glucose Point of Care 417 mg/dl (65-105)
[2022-01-18] MEDS: INSULIN HUMAN REGULAR (*BKC) 100 UNITS in SODIUM CHLORIDE 0.9% IV 99 ML 7.1 UNITS IV CONT (08:40)
[2022-01-18] MEDS: SERTRALINE HCL 50 MG TABLET 100 MG PO (08:49)
[2022-01-18] MEDS: busPIRone HCL 10 MG TABLET PO ×2 (08:49→21:08)
[2022-01-18] MEDS: ASPIRIN 81 MG ENTERIC TABLET PO (08:49)
[2022-01-18] MEDS: ATORVASTATIN 40 MG TABLET 80 MG PO (08:49)
--- NOTE | 2022-01-18 09:01 | PCRCNOTE ---
cnc machinist 2nd shift RT administered cont. neb tx at 0600, pt removed from tx at 0700, 0800 scheduled omitted due to cont. neb given. 1400 tx will be given as scheduled.
[2022-01-18 09:19] LABS: Glucose Point of Care 397 mg/dl (65-105)
[2022-01-18] MEDS: guaiFENesin/DEXTROMETHORPHAN 10 ML UDC PO (09:21)
[2022-01-18] MEDS: PREGABALIN (*CRX) 75 MG CAPSULE 150 MG PO ×2 (09:21→21:08)
[2022-01-18 10:15] LABS: Creatine Kinase 5648 U/L (55-170)
[2022-01-18 10:18] LABS: Glucose Point of Care 419 mg/dl (65-105)
[2022-01-18] MEDS: PANTOPRAZOLE SODIUM IV 40 MG VIAL IV PUSH (10:20)
[2022-01-18 11:23] LABS: Glucose Point of Care 475 mg/dl (65-105)
--- NOTE | 2022-01-18 12:06 | PCFNICU ---
ICU Rounding Note: Pt current nutrition is NPO. Last recorded weight is 120.6 kg Bowel Motility:No BM reported. Labs Reviewed:PO4 8.6, Glu 392, BUN 79, K 5.3,Alb 2.9,Hct 36.8,Hgb 11.6, HbA1c 6.8%. Meds Noted:Solu Medrol, Protonix, Vasopressin, Vancomycin, Zoloft, Buspar Skin: WNL Additional Notes: DKA admission,patient currently NPO. Plans for Renal US. COVID test pending. Following daily in ICU rounds.
[2022-01-18] MEDS: ONDANSETRON INJ 4 MG/2 ML VIAL IV PUSH (12:11)
[2022-01-18] MEDS: NOREPINEPHRINE 8 MG/D5W 250 ML 8 MG/250 ML BAG 31.88 MG IV CONT (12:16)
[2022-01-18 12:22] LABS: Glucose Point of Care 437 mg/dl (65-105)
[2022-01-18] MEDS: MICONAZOLE NITRATE 2% CREAM 30 GM TUBE 1 APPLIC TOPICAL ×2 (12:38→21:09)
[2022-01-18 13:11] LABS: SARS-CoV-2 RNA PCR Negative
[2022-01-18 13:29] LABS: Glucose Point of Care 371 mg/dl (65-105)
[2022-01-18] MEDS: BENZONATATE 100 MG CAPSULE 200 MG PO ×2 (13:42→17:44)
[2022-01-18 14:28] LABS: Glucose Point of Care 344 mg/dl (65-105)
[2022-01-18 14:28] LABS: Glucose Point of Care > 500 mg/dl (65-105)
[2022-01-18] MEDS: guaiFENesin/CODEINE (*CRX) 200/20 MG 10 ML SYRUP PO ×2 (14:28→22:11)
[2022-01-18] MEDS: INSULIN HUMAN REGULAR (*BKC) 100 UNITS in SODIUM CHLORIDE 0.9% IV 99 ML 21.8 UNITS IV CONT (14:29)
[2022-01-18 15:02] LABS: Creatinine Urine 81.9 mg/dL
[2022-01-18 15:07] LABS: Potassium Urine Random 50.5 meq/L
--- NOTE | 2022-01-18 15:07 | PM.IMPN ---
Progress Note: A&P Assessment and Plan (1) Septic shock: Code(s): A41.9 - Sepsis, unspecified organism; R65.21 - Severe sepsis with septic shock Status: Acute Assessment and Plan: Patient presented with generalized weakness, was found to be hypotensive, CT scan of the chest abdomen pelvis showed bilateral pneumonia, patient also complaining of bouts of coughing, found to be in acute kidney injury with hyperglycemia and DKA -patient received 4-5 L IV fluid bolus, central line was inserted and patient started on vasopressors -currently on Levophed and vasopressin -added stress dose steroids -Solu-Cortef -decreased urine output but slight improvement in creatinine -continue ceftriaxone, azithromycin (01/17) will add vancomycin (01/18) -maintain MAP > than 65 mmHg for adequate end organ perfusion -monitor renal function and urine output (2) Pneumonia: Code(s): J18.9 - Pneumonia, unspecified organism Status: Acute Assessment and Plan: 01/17/2022 CT scan of the chest abdomen and pelvis at the outside hospital showed she bilateral airspace disease consistent with pneumonia likely superimposed on chronic pulmonary fibrosis -patient with leukocytosis pulse, cough -continue antibiotics as above -will add anti-tussive meds (3) Diabetic ketoacidosis: Code(s): E11.10 - Type 2 diabetes mellitus with ketoacidosis without coma Status: Acute Assessment and Plan: Patient has a history of diabetes type 2 on insulin pump -pump is currently disconnected, -patient with diabetic ketoacidosis with hyperglycemia, with an anion gap metabolic acidosis -patient started on insulin infusion (4) Acute kidney injury: Code(s): N17.9 - Acute kidney failure, unspecified Status: Acute Assessment and Plan: Acute kidney injury likely related to septic shock, hypovolemia, hypotension, decreased p.o. intake, home medications (lisinopril, carvedilol, amlodipine, isosorbide mononitrate -patient adequately fluid-resuscitated -on vasopressors, will maintain MAP > 65 mmHg for adequate renal perfusion -continue to monitor renal function, electrolytes urine output -will check urine lytes and renal ultrasound, CK level on urine eosinophils (5) DM2 (diabetes mellitus, type 2): Code(s): E11.9 - Type 2 diabetes mellitus without complications Status: Chronic (6) Hypercholesteremia: Code(s): E78.00 - Pure hypercholesterolemia, unspecified Status: Chronic (7) Depression: Qualifiers: Depression Type: other depression Qualified Code(s): F32.89 - Other specified depressive episodes Code(s): F32.9 - Major depressive disorder, single episode, unspecified Status: Chronic (8) History of OH (myocardial infarction): Code(s): I25.2 - Old myocardial infarction Status: Acute (9) Diabetic neuropathy: Code(s): E11.40 - Type 2 diabetes mellitus with diabetic neuropathy, unspecified Status: Acute (10) Anxiety disorder due to general medical condition with panic attack: Code(s): F06.4 - Anxiety disorder due to known physiological condition; F41.0 - Panic disorder [episodic paroxysmal anxiety] Status: Acute (11) Hypotension: Code(s): I95.9 - Hypotension, unspecified Status: Acute (12) Dehydration: Code(s): E86.0 - Dehydration Status: Inactive (13) BPH (benign prostatic hyperplasia): Code(s): N40.0 - Benign prostatic hyperplasia without lower urinary tract symptoms Status: Acute Additional Plan 01/18/2022 interval history: patient presented with shortness of breath is found to have bilateral pneumonia and septic shock hypotensive he was vigorously hydrated and was placed on 2 pressors norepinephrine and vasopressin as well as stress dose steroids, patient being treated with azithromycin, ceftriaxone and vancomycin, discussed with senior asp net developer patient clinical symptoms are improving not requiring as presso
[2022-01-18 15:08] LABS: Sodium Urine Random < 5 meq/L
[2022-01-18 15:26] LABS: Glucose Point of Care 298 mg/dl (65-105)
[2022-01-18] MEDS: PROCHLORPERAZINE EDISYLATE 10 MG/2 ML VIAL IV PUSH (15:36)
[2022-01-18 15:39] LABS: Anion Gap 13 mmol/L (8-16); Blood Urea Nitrogen 81 mg/dL (9-20); Calcium 7.9 mg/dL (8.4-10.2); Carbon Dioxide 19 mmol/L (22-30); Chloride 99 mmol/L (98-107); Estimated CRCL calculation 34 ml/min; Estimated Glomerular Filt Rate 29; Glucose 331 mg/dL (65-110); Potassium 4.3 mmol/L (3.4-5.0); Sodium 131 mmol/L (137-145)
[2022-01-18 15:40] LABS: Eosinophil Urine None Seen % (None Seen)
[2022-01-18 16:25] LABS: Glucose Point of Care 248 mg/dl (65-105)
[2022-01-18] MEDS: SODIUM CHLORIDE 0.9% IV 1,000 ML 150 ML IV CONT (16:25)
[2022-01-18 17:28] LABS: Glucose Point of Care 200 mg/dl (65-105)
[2022-01-18] MEDS: METOCLOPRAMIDE HCL INJ 10 MG/2 ML VIAL 5 MG IV PUSH ×2 (17:45→23:57)
[2022-01-18 18:50] LABS: Glucose Point of Care 146 mg/dl (65-105)
[2022-01-18 19:26] LABS: Glucose Point of Care 124 mg/dl (65-105)
[2022-01-18] MEDS: INSULIN HUMAN REGULAR (*BKC) 100 UNITS in SODIUM CHLORIDE 0.9% IV 99 ML 9.5 UNITS IV CONT (19:30)
[2022-01-18 20:02] LABS: Anion Gap 9 mmol/L (8-16); Blood Urea Nitrogen 76 mg/dL (9-20); Calcium 8.1 mg/dL (8.4-10.2); Carbon Dioxide 23 mmol/L (22-30); Chloride 103 mmol/L (98-107); Estimated CRCL calculation 40 ml/min; Estimated Glomerular Filt Rate 35; Glucose 108 mg/dL (65-110); Potassium 4.2 mmol/L (3.4-5.0); Sodium 135 mmol/L (137-145)
--- NOTE | 2022-01-18 20:29 | PC.NURSE ---
Spoke with Dr. Rockwell regarding BMP result. Stop insulin drip. Give 40 units of Lantus x1 now. Start High dose SSI. Hold Seroquel for tonight.
[2022-01-18 20:54] LABS: Glucose Point of Care 110 mg/dl (65-105)
[2022-01-18] MEDS: INSULIN GLARGINE (*BKC) 100 UNITS/ML 40 UNITS SUB-Q (21:08)
[2022-01-18] MEDS: ENOXAPARIN 30 MG/0.3 ML SYRINGE SUB-Q (21:09)
[2022-01-18] MEDS: SODIUM CHLORIDE 0.9% IV 1,000 ML 125 ML IV CONT (21:14)
[2022-01-18] MEDS: NOREPINEPHRINE 8 MG/D5W 250 ML 8 MG/250 ML BAG 11.25 MG IV CONT (22:00)
[2022-01-18 23:52] LABS: Glucose Point of Care 314 mg/dl (65-105)
[2022-01-18] MEDS: INSULIN ASPART (*BKC) 100 UNITS/ML SUB-Q (23:54)
[2022-01-19] VITALS (28 sets, daily range): BP systolic 116–144; BP diastolic 40–97; PULSE 72–94; RESP 20–31; TEMP 36.6–37.1; O2SAT 93–96
--- NOTE | 2022-01-19 | ECHO_ITS ---
Patient Info Name: Bacilio Penn Age: 76 years : 1945 Gender: Male Ht: 71 in Wt: 270 lbs BSA: 2.52 m2 HR: 80 bpm BP: 135 / 62 mmHg Heart Rhythm: Sinus Rhythm Technical Quality: Fair Exam Date: 01/19/2022 10:28 AM Exam Location: [facility] Pulmonary Exam Room: ICU1 Patient Status: Inpatient Admit Date: 01/17/2022 Staff Ordering Physician: Trev Martin MD Landmen: Kimberly Borges RCS Attending Provider: Hali Hale DO Exam Type: CA echo dop color flow w con Study Info Indications - CHF SEPSIS Complete two-dimensional, color flow and Doppler transthoracic echocardiogram is performed with contrast to opacify the left ventricle and to improve the deliniation of the left ventricle endocardial borders. Contrast/Agitated Saline Contrast/Ag. Saline: Definity Amount: 3.00 ml Administered By: Kimberly Borges Existing IV Access: Yes IV Access Condition: patent with no signs of infiltration Summary 1. Normal left ventricular size and thickness with good contractility of all segments. Calculated ejection fraction is 60 3%. Grade 2 diastolic dysfunction is noted. 2. Moderate left atrial enlargement. 3. Mild tricuspid regurgitation. 4. Moderate pulmonary hypertension, estimated pulmonary arterial systolic pressure is 63 mmHg. 5. Dilated inferior vena cava with <50% collapse upon inspiration consistent with elevated right atrial pressure, 10 mmHg. 6. Normal sinus rhythm. 7. Technically difficult study. Definity echo contrast used. Left Ventricle Left ventricular chamber dimension is normal. Left ventricular systolic function is normal, estimated at Empty. There is no increased left ventricular wall thickness. Left ventricular septal wall motion is normal. The left ventricular diastolic function is grade II diastolic dysfunction. Right Ventricle Right ventricular chamber dimension is normal. Right ventricular systolic function is normal. Left Atria Left atrial chamber dimension is moderately enlarged. Right Atria Right atrial chamber dimension is normal. Aortic Valve The aortic valve is trileaflet. There is no aortic valve sclerosis. There is no aortic valve stenosis. There is no aortic valve regurgitation. Pulmonic Valve The pulmonic valve is normal. There is no pulmonic valve stenosis. There is no pulmonic regurgitation. Mitral Valve The mitral valve has normal leaflets. There is no mitral valve stenosis. There is trace mitral valve regurgitation. Tricuspid Valve The tricuspid valve leaflets are normal. There is no significant tricuspid valve stenosis. There is mild tricuspid valve regurgitation. Moderate pulmonary hypertension, estimated pulmonary arterial systolic pressure is 63 mmHg. Pericardium/Pleural The pericardium appears normal. There is no pericardial effusion. Inferior Vena Cava Dilated inferior vena cava with <50% collapse upon inspiration consistent with elevated right atrial pressure, 10 mmHg. Aorta The aortic root size at the sinus of Valsalva is normal. The prox ascending aorta size is normal. Left Ventricular Outflow Tract Name Value Normal LVOT 2D LVOT Diameter
[2022-01-19] MEDS: ALBUTEROL SULFATE NEB 2.5 MG/3 ML INH INHALATION ×4 (01:51→20:21)
[2022-01-19] MEDS: IPRATROPIUM BR 0.02% INH SOLN 0.5 MG/2.5 ML VIAL INHALATION ×4 (01:51→20:21)
[2022-01-19] MEDS: guaiFENesin/CODEINE (*CRX) 200/20 MG 10 ML SYRUP PO ×5 (02:20→23:20)
[2022-01-19] MEDS: BENZONATATE 100 MG CAPSULE 200 MG PO ×3 (04:20→17:19)
[2022-01-19 04:31] LABS: Basophils Absolute Auto 0.1 K/mm3 (0.0-0.1); Basophils Percent Auto 0.2 % (0.2-1.2); Hemoglobin 10.4 g/dL (14.0-18.0); Immature Granulocyte Absolute 0.36 K/mm3 (0.00-0.031); Immature Granulocyte Percent A 1.5 % (0-0.5); Lymphocytes Absolute Auto 0.86 K/mm3 (0.9-3.2); Lymphocytes Percent Auto 3.5 % (18.3-44.2); Mean Corpuscular HGB Conc 32.5 g/dl (32-36); Mean Corpuscular Hemoglobin 30.1 pg (26-34); Mean Corpuscular Volume 92.5 fl (80-100); Mean Platelet Volume 10.4 fl (7.4-10.4); Monocytes Absolute Auto 1.2 K/mm3 (0.1-0.6); Neutrophils Absolute Auto 22.1 K/mm3 (1.3-6.7); Neutrophils Percent Auto 89.8 % (45.5-73.1); Platelet Count Result 269 k/mm3 (150-375); Red Blood Count 3.46 M/mm3 (4.6-6.20); Red Cell Distribution Width 13.4 % (11.5-14.5); White Blood Count 24.6 K/mm3 (4.5-10.0)
[2022-01-19 04:43] LABS: Alanine Aminotransferase 57 U/L (6-50); Albumin Level 2.5 g/dL (3.5-5.1); Alkaline Phosphatase 80 U/L (38-126); Anion Gap 8 mmol/L (8-16); Aspartate Amino Transferase 114 U/L (17-59); Bilirubin,Total 0.4 mg/dL (0.2-1.3); Blood Urea Nitrogen 70 mg/dL (9-20); Calcium 7.7 mg/dL (8.4-10.2); Carbon Dioxide 24 mmol/L (22-30); Chloride 103 mmol/L (98-107); Estimated CRCL calculation 50 ml/min; Estimated Glomerular Filt Rate 46; Glucose 271 mg/dL (65-110); Lactic Acid Reflex 1.8 mmol/L (0.7-2.0); Magnesium 2.3 mg/dL (1.6-2.3); Phosphorus 4.8 mg/dL (2.5-4.5); Sodium 135 mmol/L (137-145)
[2022-01-19 04:51] LABS: Burr Cells 2+ (NORMAL); Platelet Estimate Adequate (Adequate)
[2022-01-19] MEDS: CENTRAL LINE FLUSH 10 ML IV PUSH ×3 (05:17→21:31)
[2022-01-19] MEDS: INSULIN ASPART (*BKC) 100 UNITS/ML SUB-Q ×2 (05:17→07:39)
[2022-01-19] MEDS: METOCLOPRAMIDE HCL INJ 10 MG/2 ML VIAL 5 MG IV PUSH ×2 (05:18→11:43)
[2022-01-19] MEDS: HYDROCORTISONE SODIUM SUCCINATE 100 MG/2 ML VIAL IV PUSH ×3 (05:18→21:29)
[2022-01-19 05:23] LABS: Alveolar/Arterial O2 Gradient 190.8 mmHg; Base Excess ABG -3.1 mEq/l (+/-2.0); Carboxyhemoglobin 0.3 % THb (0-2.0); Device HIGH FLOW NASAL CANN; Fractional Inspired Oxygen 44 %; HCO3 ABG 22.9 mEq/l (22.0-26.0); Methemoglobin ABG 0.3 %THb (0-1.5); Modified Allen's Test Pass; Oxygen Content ABG 14.6 %vol (16.0-22.0); Oxygen Saturation ABG 93.3 % (95.0-100.0); Oxyhemoglobin 92.3 % THb (90.0-100.0); PCO2 ABG 44.9 mmHg (35.0-45.0); PO2 ABG 71.7 mmHg (80.0-100.0); PO2 FiO2 Ratio Arterial Blood 1.63 %; Reduced Hemoglobin 7.1 %THb (0-5.0); Site Drawn RIGHT RADIAL; Total Hemoglobin 11.2 g/dL (12.0-18.0); pH ABG 7.325 (7.350-7.450)
[2022-01-19 07:37] LABS: Glucose Point of Care 249 mg/dl (65-105)
[2022-01-19] MEDS: PANTOPRAZOLE SODIUM IV 40 MG VIAL IV PUSH (07:42)
[2022-01-19] MEDS: MICONAZOLE NITRATE 2% CREAM 30 GM TUBE 1 APPLIC TOPICAL ×2 (07:43→21:31)
[2022-01-19] MEDS: busPIRone HCL 10 MG TABLET PO ×2 (07:43→21:30)
[2022-01-19] MEDS: ATORVASTATIN 40 MG TABLET 80 MG PO (07:43)
[2022-01-19] MEDS: SERTRALINE HCL 50 MG TABLET 100 MG PO (07:44)
[2022-01-19] MEDS: ASPIRIN 81 MG ENTERIC TABLET PO (07:44)
[2022-01-19] MEDS: PREGABALIN (*CRX) 75 MG CAPSULE 150 MG PO ×2 (07:48→21:28)
[2022-01-19] MEDS: SODIUM CHLORIDE 0.9% IV 1,000 ML 125 ML IV CONT (07:57)
--- NOTE | 2022-01-19 09:12 | WPDINTPN ---
Progress Note: A&P Assessment and Plan (1) Septic shock: Code(s): A41.9 - Sepsis, unspecified organism; R65.21 - Severe sepsis with septic shock Status: Acute Assessment and Plan: Patient presented with generalized weakness, was found to be hypotensive, CT scan of the chest abdomen pelvis showed bilateral pneumonia, patient also complaining of bouts of coughing, found to be in acute kidney injury with hyperglycemia and DKA -patient received 4-5 L IV fluid bolus, central line was inserted and patient started on vasopressors -Levophed was weaned off this morning. Continue close monitoring to see if patient needs to go back on -wean Solu-Cortef -continue ceftriaxone, azithromycin (01/17) and vancomycin (01/18) -maintain MAP > than 65 mmHg for adequate end organ perfusion -monitor renal function and urine output -will hold further IV fluids at this time -check echocardiogram (2) Pneumonia: Code(s): J18.9 - Pneumonia, unspecified organism Status: Acute Assessment and Plan: 01/17/2022 CT scan of the chest abdomen and pelvis at the outside hospital showed she bilateral airspace disease consistent with pneumonia likely superimposed on chronic pulmonary fibrosis -continue antibiotics as above -blood sputum and urine culture are all pending (3) Diabetic ketoacidosis: Code(s): E11.10 - Type 2 diabetes mellitus with ketoacidosis without coma Status: Acute Assessment and Plan: Patient has a history of diabetes type 2 on insulin pump Patient is currently off of insulin pump Anion gap closed and patient will be transitioned to subcutaneous Lantus and sliding scale insulin Advanced diet to diabetic (4) Acute kidney injury: Code(s): N17.9 - Acute kidney failure, unspecified Status: Acute Assessment and Plan: Acute kidney injury likely related to septic shock, hypovolemia, hypotension, decreased p.o. intake, home medications (lisinopril, carvedilol, amlodipine, isosorbide mononitrate -patient also had elevated CK level suggesting of rhabdomyolysis -patient adequately fluid-resuscitated and will decrease IV fluid rate -continue as needed vasopressors to maintain MAP > 65 mmHg for adequate renal perfusion -continue to monitor renal function, electrolytes urine output -urine electrolytes suggest prerenal -unremarkable renal ultrasound, urine eosinophils negative (5) Pulmonary fibrosis: Code(s): J84.10 - Pulmonary fibrosis, unspecified Status: Acute Assessment and Plan: CT scan suggests chronic pulmonary fibrosis Patient has a heavy history of smoking but he quit 30 years ago Patient is not on home oxygen but does have Rey functional capacity as he gets short of breath even going to the bathroom Will consult Pulmonary once acute issues are resolved Decrease IV fluid rate Check echocardiogram (6) Cough: Code(s): R05.9 - Cough, unspecified Status: Acute Assessment and Plan: Continue Tessalon and guaifenesin with codeine Add dextromethorphan Additional Plan Incentive spirometry Up in chair DVT prophylaxis: Renally dosed enoxaparin Stress ulcer prophylaxis: Protonix Nutrition: Diabetic diet Code status: Full code Critical care time spent: 30 minutes Discussed with patient updated with his condition and plan of care. I answered all questions This dictation may have been done utilizing a voice recognition system. Attempts have been made to correct errors. However, there may be uncorrected grammatical, spelling, and recognition errors present. Due to a high probability of clinically significant, life threatening deterioration, the patient required my highest level of preparedness to intervene emergently and I personally spent this critical care time directly and personally managing the patient. This critical care time included obtaining a history; examining the patient; pulse oximetry; ordering and review of studies; arranging urgent treat
[2022-01-19] MEDS: LACTATED RINGERS 1,000 ML 75 ML IV CONT ×2 (09:46→23:21)
[2022-01-19] MEDS: DEXTROMETHORPHAN POLISTIREX 60 MG/10 ML SYRINGE PO ×2 (09:48→21:28)
[2022-01-19 10:30] LABS: Creatine Kinase 2299 U/L (55-170); NT Pro B Type Natriuretic Pept 1250 pg/mL (5-100)
[2022-01-19] MEDS: PERFLUTREN LIPID MICROSPHERES 1.5 ML VIAL DILUTED TO 10 ML TOTAL VOLUME IV PUSH (11:10)
--- NOTE | 2022-01-19 11:27 | PCDIET ---
Diet order has advanced to a diabetic diet, eating well for breakfast. COVID negative. Plans for downgrade from ICU today. No further nutritional interventions needed.
[2022-01-19 12:00] LABS: Glucose Point of Care 429 mg/dl (65-105)
[2022-01-19] MEDS: INSULIN HUMAN REGULAR (*BKC) 100 UNITS/ML 10 UNITS IV PUSH (12:08)
--- NOTE | 2022-01-19 13:15 | PC.NURSE ---
This patient, Bacilio Penn, was received from [ ICU-1] on 01/19/22 at 1315. Patient/family oriented to unit policies and routines
--- NOTE | 2022-01-19 13:53 | PC.NURSE ---
This patient, Bacilio Penn, was transferred to [200 ] on 01/19/22 at 1315. Personal belongings sent with patient. Report given to [Loraine VERDUGO ]. Appropriate documentation sent with patient.
--- NOTE | 2022-01-19 14:02 | PM.IMPN ---
Progress Note: A&P Assessment and Plan (1) Septic shock: Code(s): A41.9 - Sepsis, unspecified organism; R65.21 - Severe sepsis with septic shock Status: Acute Assessment and Plan: Now improved (2) Pneumonia: Code(s): J18.9 - Pneumonia, unspecified organism Status: Acute Assessment and Plan: 01/17/2022 CT scan of the chest abdomen and pelvis at the outside hospital showed she bilateral airspace disease consistent with pneumonia likely superimposed on chronic pulmonary fibrosis -continue antibiotics as above -blood sputum and urine culture are all pending -continue IV antibiotics (3) Diabetic ketoacidosis: Code(s): E11.10 - Type 2 diabetes mellitus with ketoacidosis without coma Status: Acute Assessment and Plan: Monitor blood sugar. Continue insulin (4) Acute kidney injury: Code(s): N17.9 - Acute kidney failure, unspecified Status: Acute Assessment and Plan: Monitor kidney function and electrolytes Creatinine today is 1.5 (5) Pulmonary fibrosis: Code(s): J84.10 - Pulmonary fibrosis, unspecified Status: Acute Assessment and Plan: CT scan suggests chronic pulmonary fibrosis Patient has a heavy history of smoking but he quit 30 years ago (6) Cough: Code(s): R05.9 - Cough, unspecified Status: Acute Assessment and Plan: Continue Tessalon and guaifenesin with codeine Add dextromethorphan Additional Plan Incentive spirometry Up in chair DVT prophylaxis: Renally dosed enoxaparin Stress ulcer prophylaxis: Protonix Nutrition: Diabetic diet Code status: Full code Critical care time spent: 30 minutes Discussed with patient updated with his condition and plan of care. I answered all questions This dictation may have been done utilizing a voice recognition system. Attempts have been made to correct errors. However, there may be uncorrected grammatical, spelling, and recognition errors present. Due to a high probability of clinically significant, life threatening deterioration, the patient required my highest level of preparedness to intervene emergently and I personally spent this critical care time directly and personally managing the patient. This critical care time included obtaining a history; examining the patient; pulse oximetry; ordering and review of studies; arranging urgent treatment with development of a management plan; evaluation of patient's response to treatment; frequent reassessment; and discussions with other providers. It was exclusive of separately billable procedures and treating other patients and teaching time. Please see Assessment and Plan section and the rest of the note for further information on patient assessment and treatment Subjective Date/time seen: 01/19/22 14:02 No complaints Exam Narrative: General: Pleasant gentleman in no acute distress at this time HEENT: Moist oral mucosa, pupils are equal and reactive, sclera is clear Neck: Supple, no lymphadenopathy Respiratory: Coarse breath sounds bilaterally, no wheezing, few rales bilaterally Cardiac: Regular rate and rhythm, S1-S2 is normal Abdomen: Soft, nontender, nondistended, normoactive bowel sounds, obese Extremities: . Pedal pulses are palpable, trace edema Neuro: Patient is awake, alert, oriented x3, able to answer all questions, provide history and follows simple commands in all extremities Skin: Discoloration of toes on the left foot, patient states he fell on the stairs hurting his toes Psych: Normal affect and mentation Const: General: cooperative, no acute distress, well developed, alert, awake, ill appearing and tired appearing Nutritional Appearance: average body habitus and well nourished Orientation/consciousness: oriented to person, oriented to place, oriented to time and patient oriented x3 Limitations: no limitations HENMT: Head: normal to inspection, No palpable skull fracture present, normocephal
[2022-01-19 14:13] LABS: Glucose Point of Care 418 mg/dl (65-105)
--- NOTE | 2022-01-19 14:20 | PC.NURSE ---
Notified Dr. Atwood of blood glucose still being >400. PT's glucose at 1200 was 429 and 10 units of regular insulin IVP was given. Rechecked sugar at 1400 and it was 418. New order for 12 units SQ of NPH insulin now.
[2022-01-19] MEDS: INSULIN HUMAN NPH (*BKC) 100 UNITS/ML 12 UNITS SUB-Q (15:17)
--- NOTE | 2022-01-19 16:57 | PC.NURSE ---
Notified Dr. Atwood of blood glucose of 403. New order for 14 units of Novolog insulin SQ x1.
[2022-01-19 16:59] LABS: Glucose Point of Care 403 mg/dl (65-105)
[2022-01-19] MEDS: INSULIN ASPART (*BKC) 100 UNITS/ML 14 UNITS SUB-Q (17:18)
[2022-01-19 20:50] LABS: Glucose Point of Care 221 mg/dl (65-105)
[2022-01-19] MEDS: ENOXAPARIN 30 MG/0.3 ML SYRINGE SUB-Q (21:29)
[2022-01-19] MEDS: QUEtiapine FUMARATE 25 MG TABLET 50 MG PO (21:30)
[2022-01-19] MEDS: INSULIN GLARGINE (*BKC) 100 UNITS/ML 40 UNITS SUB-Q (21:39)
[2022-01-20] VITALS (18 sets, daily range): BP systolic 132–163; BP diastolic 52–63; PULSE 61–99; RESP 16–26; TEMP 36.2–36.4; O2SAT 94–100
[2022-01-20] MEDS: IPRATROPIUM BR 0.02% INH SOLN 0.5 MG/2.5 ML VIAL INHALATION ×4 (02:50→20:30)
[2022-01-20] MEDS: ALBUTEROL SULFATE NEB 2.5 MG/3 ML INH INHALATION ×4 (02:51→20:30)
[2022-01-20 02:59] LABS: Glucose Point of Care 105 mg/dl (65-105)
[2022-01-20 05:36] LABS: Basophils Percent Auto 0.2 % (0.2-1.2); Immature Granulocyte Absolute 0.16 K/mm3 (0.00-0.031); Immature Granulocyte Percent A 0.8 % (0-0.5); Lymphocytes Percent Auto 5.7 % (18.3-44.2); Mean Corpuscular HGB Conc 32.4 g/dl (32-36); Mean Corpuscular Hemoglobin 29.8 pg (26-34); Mean Corpuscular Volume 92.1 fl (80-100); Mean Platelet Volume 10.5 fl (7.4-10.4); Monocytes Absolute Auto 1.1 K/mm3 (0.1-0.6); Monocytes Percent Auto 5.6 % (2.6-8.5); Neutrophils Absolute Auto 16.8 K/mm3 (1.3-6.7); Neutrophils Percent Auto 87.7 % (45.5-73.1); Platelet Count Result 270 k/mm3 (150-375); Red Blood Count 3.69 M/mm3 (4.6-6.20); Red Cell Distribution Width 13.5 % (11.5-14.5); White Blood Count 19.2 K/mm3 (4.5-10.0)
[2022-01-20 05:52] LABS: Alanine Aminotransferase 72 U/L (6-50); Albumin Level 2.8 g/dL (3.5-5.1); Alkaline Phosphatase 85 U/L (38-126); Anion Gap 5 mmol/L (8-16); Aspartate Amino Transferase 98 U/L (17-59); Bilirubin,Total 0.5 mg/dL (0.2-1.3); Blood Urea Nitrogen 46 mg/dL (9-20); Calcium 8.2 mg/dL (8.4-10.2); Carbon Dioxide 30 mmol/L (22-30); Chloride 108 mmol/L (98-107); Estimated CRCL calculation 74 ml/min; Estimated Glomerular Filt Rate > 60; Glucose 92 mg/dL (65-110); Magnesium 2.1 mg/dL (1.6-2.3); Phosphorus 3.4 mg/dL (2.5-4.5); Potassium 4.9 mmol/L (3.4-5.0); Sodium 143 mmol/L (137-145)
[2022-01-20] MEDS: guaiFENesin/CODEINE (*CRX) 200/20 MG 10 ML SYRUP PO ×2 (06:08→12:31)
[2022-01-20 08:35] LABS: Glucose Point of Care 133 mg/dl (65-105)
[2022-01-20] MEDS: ASPIRIN 81 MG ENTERIC TABLET PO (08:50)
[2022-01-20] MEDS: ATORVASTATIN 40 MG TABLET 80 MG PO (08:50)
[2022-01-20] MEDS: PANTOPRAZOLE SODIUM IV 40 MG VIAL IV PUSH (08:50)
[2022-01-20] MEDS: SERTRALINE HCL 50 MG TABLET 100 MG PO (08:50)
[2022-01-20] MEDS: BENZONATATE 100 MG CAPSULE 200 MG PO ×3 (08:50→17:40)
[2022-01-20] MEDS: busPIRone HCL 10 MG TABLET PO ×2 (08:50→21:47)
[2022-01-20] MEDS: MICONAZOLE NITRATE 2% CREAM 30 GM TUBE 1 APPLIC TOPICAL ×2 (08:50→22:01)
[2022-01-20] MEDS: PREGABALIN (*CRX) 75 MG CAPSULE 150 MG PO ×2 (08:52→21:46)
[2022-01-20 12:06] LABS: Glucose Point of Care 189 mg/dl (65-105)
--- NOTE | 2022-01-20 13:00 | PM.IMPN ---
Progress Note: A&P Assessment and Plan (1) Septic shock: Code(s): A41.9 - Sepsis, unspecified organism; R65.21 - Severe sepsis with septic shock Status: Acute Assessment and Plan: Now improved (2) Pneumonia: Code(s): J18.9 - Pneumonia, unspecified organism Status: Acute Assessment and Plan: 01/17/2022 CT scan of the chest abdomen and pelvis at the outside hospital showed she bilateral airspace disease consistent with pneumonia likely superimposed on chronic pulmonary fibrosis -continue antibiotics as above -blood sputum and urine culture are all pending -continue IV antibiotics (3) Diabetic ketoacidosis: Code(s): E11.10 - Type 2 diabetes mellitus with ketoacidosis without coma Status: Acute Assessment and Plan: Monitor blood sugar. Continue insulin (4) Acute kidney injury: Code(s): N17.9 - Acute kidney failure, unspecified Status: Acute Assessment and Plan: Monitor kidney function and electrolytes Creatinine today is 1.5 (5) Pulmonary fibrosis: Code(s): J84.10 - Pulmonary fibrosis, unspecified Status: Acute Assessment and Plan: CT scan suggests chronic pulmonary fibrosis Patient has a heavy history of smoking but he quit 30 years ago (6) Cough: Code(s): R05.9 - Cough, unspecified Status: Acute Assessment and Plan: Continue Tessalon and guaifenesin with codeine Add dextromethorphan Additional Plan Incentive spirometry Up in chair DVT prophylaxis: Renally dosed enoxaparin Stress ulcer prophylaxis: Protonix Nutrition: Diabetic diet Code status: Full code Critical care time spent: 30 minutes Discussed with patient updated with his condition and plan of care. I answered all questions This dictation may have been done utilizing a voice recognition system. Attempts have been made to correct errors. However, there may be uncorrected grammatical, spelling, and recognition errors present. Due to a high probability of clinically significant, life threatening deterioration, the patient required my highest level of preparedness to intervene emergently and I personally spent this critical care time directly and personally managing the patient. This critical care time included obtaining a history; examining the patient; pulse oximetry; ordering and review of studies; arranging urgent treatment with development of a management plan; evaluation of patient's response to treatment; frequent reassessment; and discussions with other providers. It was exclusive of separately billable procedures and treating other patients and teaching time. Please see Assessment and Plan section and the rest of the note for further information on patient assessment and treatment Subjective Date/time seen: 01/20/22 13:00 Respiratory status much improved. Currently on 3liters of oxygen. Patient feels better overall. Exam Narrative: General: Pleasant gentleman in no acute distress at this time HEENT: Moist oral mucosa, pupils are equal and reactive, sclera is clear Neck: Supple, no lymphadenopathy Respiratory: Coarse breath sounds bilaterally, no wheezing, few rales bilaterally Cardiac: Regular rate and rhythm, S1-S2 is normal Abdomen: Soft, nontender, nondistended, normoactive bowel sounds, obese Extremities: . Pedal pulses are palpable, trace edema Neuro: Patient is awake, alert, oriented x3, able to answer all questions, provide history and follows simple commands in all extremities Skin: Discoloration of toes on the left foot, patient states he fell on the stairs hurting his toes Psych: Normal affect and mentation Const: General: cooperative, no acute distress, well developed, alert, awake, ill appearing and tired appearing Nutritional Appearance: average body habitus and well nourished Orientation/consciousness: oriented to person, oriented to place, oriented to time and patient oriented x3 Limitations: no limitations
--- NOTE | 2022-01-20 16:00 | PC.NURSE ---
This patient, Bacilio Penn, was received from [[facility]] on 01/20/22 at 1715. Patient/family oriented to unit policies and routines
--- NOTE | 2022-01-20 16:19 | PC.NURSE ---
This patient, Bacilio Penn, was transferred to [ 344] on 01/20/22 at 1600. Personal belongings sent with patient. Report given to [KARTIK Saucedo @ [phone]]. Appropriate documentation sent with patient.
[2022-01-20 17:19] LABS: Glucose Point of Care 314 mg/dl (65-105)
[2022-01-20] MEDS: INSULIN ASPART (*BKC) 100 UNITS/ML SUB-Q (17:40)
[2022-01-20] MEDS: BISACODYL 10 MG SUPPOSITORY RECTAL (17:57)
[2022-01-20 20:39] LABS: Glucose Point of Care 227 mg/dl (65-105)
[2022-01-20] MEDS: QUEtiapine FUMARATE 25 MG TABLET 50 MG PO (21:46)
[2022-01-20] MEDS: ENOXAPARIN 40 MG/0.4 ML SYRINGE SUB-Q (21:46)
[2022-01-20] MEDS: INSULIN GLARGINE (*BKC) 100 UNITS/ML 40 UNITS SUB-Q (21:47)
[2022-01-21] VITALS (19 sets, daily range): BP systolic 150–160; BP diastolic 57–64; PULSE 63–100; RESP 18–22; TEMP 36.5–36.7; O2SAT 91–99
[2022-01-21] MEDS: BISACODYL 10 MG SUPPOSITORY RECTAL (01:19)
[2022-01-21] MEDS: polyethylene glycoL 3350 238 GM BOTTLE PO (01:36)
--- NOTE | 2022-01-21 02:02 | PC.NURSE ---
M[facility]ALAX MIXED WITH [employer]ATOR[employer]
[2022-01-21] MEDS: IPRATROPIUM BR 0.02% INH SOLN 0.5 MG/2.5 ML VIAL INHALATION ×4 (02:15→20:20)
[2022-01-21] MEDS: ALBUTEROL SULFATE NEB 2.5 MG/3 ML INH INHALATION ×4 (02:15→20:20)
[2022-01-21 05:39] LABS: Basophils Percent Auto 0.1 % (0.2-1.2); Eosinophils Absolute Auto 0.1 K/mm3 (0-0.3); Eosinophils Percent Auto 0.3 % (0-4.4); Hematocrit 35.9 % (42.0-52.0); Hemoglobin 11.5 g/dL (14.0-18.0); Immature Granulocyte Absolute 0.17 K/mm3 (0.00-0.031); Immature Granulocyte Percent A 0.8 % (0-0.5); Lymphocytes Absolute Auto 1.27 K/mm3 (0.9-3.2); Lymphocytes Percent Auto 6.3 % (18.3-44.2); Mean Corpuscular Hemoglobin 29.6 pg (26-34); Mean Corpuscular Volume 92.5 fl (80-100); Mean Platelet Volume 10.2 fl (7.4-10.4); Monocytes Absolute Auto 1.2 K/mm3 (0.1-0.6); Neutrophils Absolute Auto 17.3 K/mm3 (1.3-6.7); Neutrophils Percent Auto 86.5 % (45.5-73.1); Platelet Count Result 266 k/mm3 (150-375); Red Blood Count 3.88 M/mm3 (4.6-6.20); Red Cell Distribution Width 13.5 % (11.5-14.5)
[2022-01-21 05:49] LABS: Alanine Aminotransferase 64 U/L (6-50); Albumin Level 2.6 g/dL (3.5-5.1); Alkaline Phosphatase 88 U/L (38-126); Anion Gap 6 mmol/L (8-16); Aspartate Amino Transferase 66 U/L (17-59); Bilirubin,Total 0.8 mg/dL (0.2-1.3); Blood Urea Nitrogen 32 mg/dL (9-20); Calcium 8.2 mg/dL (8.4-10.2); Carbon Dioxide 28 mmol/L (22-30); Chloride 106 mmol/L (98-107); Estimated CRCL calculation 91 ml/min; Estimated Glomerular Filt Rate > 60; Glucose 79 mg/dL (65-110); Magnesium 1.7 mg/dL (1.6-2.3); Phosphorus 3.3 mg/dL (2.5-4.5); Potassium 3.5 mmol/L (3.4-5.0); Sodium 140 mmol/L (137-145)
[2022-01-21 06:25] LABS: Platelet Estimate Adequate (Adequate)
[2022-01-21 06:26] LABS: Hypochromasia 1+ (NORMAL); Ovalocytes 1+ (NORMAL)
[2022-01-21 07:58] LABS: Glucose Point of Care 62 mg/dl (65-105)
[2022-01-21 08:37] LABS: Glucose Point of Care 67 mg/dl (65-105)
[2022-01-21] MEDS: ATORVASTATIN 40 MG TABLET 80 MG PO (09:09)
[2022-01-21] MEDS: ASPIRIN 81 MG ENTERIC TABLET PO (09:09)
[2022-01-21] MEDS: MICONAZOLE NITRATE 2% CREAM 30 GM TUBE 1 APPLIC TOPICAL ×2 (09:10→20:24)
[2022-01-21] MEDS: busPIRone HCL 10 MG TABLET PO ×2 (09:10→20:23)
[2022-01-21] MEDS: BENZONATATE 100 MG CAPSULE 200 MG PO ×3 (09:10→16:53)
[2022-01-21] MEDS: PANTOPRAZOLE SODIUM IV 40 MG VIAL IV PUSH (09:10)
[2022-01-21] MEDS: SERTRALINE HCL 50 MG TABLET 100 MG PO (09:10)
[2022-01-21] MEDS: PREGABALIN (*CRX) 75 MG CAPSULE 150 MG PO ×2 (09:12→20:23)
[2022-01-21 09:21] LABS: Glucose Point of Care 103 mg/dl (65-105)
[2022-01-21 12:06] LABS: Glucose Point of Care 139 mg/dl (65-105)
--- NOTE | 2022-01-21 12:35 | P.PNIM_ITS ---
Progress Note: A&P Assessment and Plan (1) Septic shock: Code(s): A41.9 - Sepsis, unspecified organism; R65.21 - Severe sepsis with septic shock Status: Acute Assessment and Plan: Now improved (2) Pneumonia: Code(s): J18.9 - Pneumonia, unspecified organism Status: Acute Assessment and Plan: 01/17/2022 CT scan of the chest abdomen and pelvis at the outside hospital showed she bilateral airspace disease consistent with pneumonia likely superimposed on chronic pulmonary fibrosis -continue antibiotics as above -blood sputum and urine culture are all pending -continue IV antibiotics (3) Diabetic ketoacidosis: Code(s): E11.10 - Type 2 diabetes mellitus with ketoacidosis without coma Status: Acute Assessment and Plan: Monitor blood sugar. Continue insulin (4) Acute kidney injury: Code(s): N17.9 - Acute kidney failure, unspecified Status: Acute Assessment and Plan: Monitor kidney function and electrolytes Creatinine today is 1.5 (5) Pulmonary fibrosis: Code(s): J84.10 - Pulmonary fibrosis, unspecified Status: Acute Assessment and Plan: CT scan suggests chronic pulmonary fibrosis Patient has a heavy history of smoking but he quit 30 years ago (6) Cough: Code(s): R05.9 - Cough, unspecified Status: Acute Assessment and Plan: Continue Tessalon and guaifenesin with codeine Add dextromethorphan Additional Plan Incentive spirometry Up in chair DVT prophylaxis: Renally dosed enoxaparin Stress ulcer prophylaxis: Protonix Nutrition: Diabetic diet Code status: Full code Critical care time spent: 30 minutes Discussed with patient updated with his condition and plan of care. I answered all questions This dictation may have been done utilizing a voice recognition system. Attempts have been made to correct errors. However, there may be uncorrected grammatical, spelling, and recognition errors present. Due to a high probability of clinically significant, life threatening deterioration, the patient required my highest level of preparedness to intervene emergently and I personally spent this critical care time directly and personally managing the patient. This critical care time included obtaining a history; examining the patient; pulse oximetry; ordering and review of studies; arranging urgent treatment with development of a management plan; evaluation of patient's response to treatment; frequent reassessment; and discussions with other providers. It was exclusive of separately billable procedures and treating other patients and teaching time. Please see Assessment and Plan section and the rest of the note for further information on patient assessment and treatment Subjective Date/time seen: 01/21/22 12:35 Reports breathing is better. Exam Narrative: General: Pleasant gentleman in no acute distress at this time HEENT: Moist oral mucosa, pupils are equal and reactive, sclera is clear Neck: Supple, no lymphadenopathy Respiratory: Coarse breath sounds bilaterally, no wheezing, few rales bilaterally Cardiac: Regular rate and rhythm, S1-S2 is normal Abdomen: Soft, nontender, nondistended, normoactive bowel sounds, obese Extremities: . Pedal pulses are palpable, trace edema Neuro: Patient is awake, alert, oriented x3, able to answer all questions, provide history and follows simple commands in all extremities Skin: Discoloration of toes on the left foot, patient states he fell on the stairs hurting his toes Psych: Normal affect and mentation
--- NOTE | 2022-01-21 14:55 | PC.NURSE ---
Pt has had blood sugar of 62 today. Pt was given juice with breakfast and blood sugar came up to 103, Pt remained over 100 since. Pt no longer experiencing constipation. Pt has had multiple bowel movements today. Pt continues to have coarse cough. Pt on 2L humidified O2 that is not used at home. Pt continues to call out when he has had a bowel movement and needs to be cleaned up. Will continue to monitor pt.
[2022-01-21 16:52] LABS: Glucose Point of Care 154 mg/dl (65-105)
[2022-01-21] MEDS: INSULIN GLARGINE (*BKC) 100 UNITS/ML 40 UNITS SUB-Q (20:18)
[2022-01-21] MEDS: ENOXAPARIN 40 MG/0.4 ML SYRINGE SUB-Q (20:23)
[2022-01-21] MEDS: QUEtiapine FUMARATE 25 MG TABLET 50 MG PO (20:23)
[2022-01-21 20:51] LABS: Glucose Point of Care 147 mg/dl (65-105)
--- NOTE | 2022-01-21 23:55 | PC.NURSE ---
at bedside to readjust telemetry leads and offer patient medication to assist with cough. Patient refuses all interventions at this time.
[2022-01-22] VITALS (16 sets, daily range): BP systolic 159–184; BP diastolic 55–68; PULSE 61–110; RESP 12–18; TEMP 36.1–36.6; O2SAT 96–100
[2022-01-22] MEDS: IPRATROPIUM BR 0.02% INH SOLN 0.5 MG/2.5 ML VIAL INHALATION ×4 (02:00→20:17)
[2022-01-22] MEDS: ALBUTEROL SULFATE NEB 2.5 MG/3 ML INH INHALATION ×4 (02:00→20:17)
[2022-01-22 05:28] LABS: Basophils Percent Auto 0.2 % (0.2-1.2); Eosinophils Absolute Auto 0.4 K/mm3 (0-0.3); Eosinophils Percent Auto 2.1 % (0-4.4); Hematocrit 35.4 % (42.0-52.0); Hemoglobin 11.5 g/dL (14.0-18.0); Immature Granulocyte Absolute 0.18 K/mm3 (0.00-0.031); Immature Granulocyte Percent A 1.1 % (0-0.5); Lymphocytes Absolute Auto 1.54 K/mm3 (0.9-3.2); Lymphocytes Percent Auto 9.1 % (18.3-44.2); Mean Corpuscular HGB Conc 32.5 g/dl (32-36); Mean Corpuscular Hemoglobin 29.6 pg (26-34); Mean Corpuscular Volume 91.2 fl (80-100); Mean Platelet Volume 10.3 fl (7.4-10.4); Monocytes Absolute Auto 0.9 K/mm3 (0.1-0.6); Neutrophils Percent Auto 82.5 % (45.5-73.1); Platelet Count Result 246 k/mm3 (150-375); Red Blood Count 3.88 M/mm3 (4.6-6.20); Red Cell Distribution Width 13.6 % (11.5-14.5)
[2022-01-22 05:50] LABS: Alanine Aminotransferase 53 U/L (6-50); Albumin Level 2.4 g/dL (3.5-5.1); Alkaline Phosphatase 78 U/L (38-126); Anion Gap 2 mmol/L (8-16); Aspartate Amino Transferase 52 U/L (17-59); Bilirubin,Total 0.7 mg/dL (0.2-1.3); Blood Urea Nitrogen 25 mg/dL (9-20); Calcium 7.9 mg/dL (8.4-10.2); Carbon Dioxide 35 mmol/L (22-30); Chloride 104 mmol/L (98-107); Estimated CRCL calculation 91 ml/min; Estimated Glomerular Filt Rate > 60; Glucose 83 mg/dL (65-110); Magnesium 1.5 mg/dL (1.6-2.3); Phosphorus 3.7 mg/dL (2.5-4.5); Potassium 3.2 mmol/L (3.4-5.0); Sodium 141 mmol/L (137-145)
[2022-01-22 08:19] LABS: Glucose Point of Care 71 mg/dl (65-105)
[2022-01-22] MEDS: PREGABALIN (*CRX) 75 MG CAPSULE 150 MG PO ×2 (10:11→21:33)
[2022-01-22] MEDS: ASPIRIN 81 MG ENTERIC TABLET PO (10:11)
[2022-01-22] MEDS: ATORVASTATIN 40 MG TABLET 80 MG PO (10:11)
[2022-01-22] MEDS: PANTOPRAZOLE SODIUM IV 40 MG VIAL IV PUSH (10:11)
[2022-01-22] MEDS: busPIRone HCL 10 MG TABLET PO ×2 (10:11→21:33)
[2022-01-22] MEDS: SERTRALINE HCL 50 MG TABLET 100 MG PO (10:11)
[2022-01-22] MEDS: BENZONATATE 100 MG CAPSULE 200 MG PO ×3 (10:11→17:26)
[2022-01-22] MEDS: MICONAZOLE NITRATE 2% CREAM 30 GM TUBE 1 APPLIC TOPICAL ×2 (10:11→21:35)
--- NOTE | 2022-01-22 11:16 | PM.IMPN ---
Progress Note: A&P Assessment and Plan (1) Septic shock: Code(s): A41.9 - Sepsis, unspecified organism; R65.21 - Severe sepsis with septic shock Status: Acute Assessment and Plan: Now improved (2) Pneumonia: Code(s): J18.9 - Pneumonia, unspecified organism Status: Acute Assessment and Plan: 01/17/2022 CT scan of the chest abdomen and pelvis at the outside hospital showed she bilateral airspace disease consistent with pneumonia likely superimposed on chronic pulmonary fibrosis -continue IV antibiotics (3) Diabetic ketoacidosis: Code(s): E11.10 - Type 2 diabetes mellitus with ketoacidosis without coma Status: Acute Assessment and Plan: Monitor blood sugar. Continue insulin (4) Acute kidney injury: Code(s): N17.9 - Acute kidney failure, unspecified Status: Acute Assessment and Plan: Monitor kidney function and electrolytes Creatinine today is 1.5 (5) Pulmonary fibrosis: Code(s): J84.10 - Pulmonary fibrosis, unspecified Status: Acute Assessment and Plan: CT scan suggests chronic pulmonary fibrosis Patient has a heavy history of smoking but he quit 30 years ago (6) Cough: Code(s): R05.9 - Cough, unspecified Status: Acute Assessment and Plan: Continue Tessalon and guaifenesin with codeine Add dextromethorphan Additional Plan Incentive spirometry Up in chair DVT prophylaxis: Renally dosed enoxaparin Stress ulcer prophylaxis: Protonix Nutrition: Diabetic diet Code status: Full code Critical care time spent: 30 minutes Discussed with patient updated with his condition and plan of care. I answered all questions This dictation may have been done utilizing a voice recognition system. Attempts have been made to correct errors. However, there may be uncorrected grammatical, spelling, and recognition errors present. Due to a high probability of clinically significant, life threatening deterioration, the patient required my highest level of preparedness to intervene emergently and I personally spent this critical care time directly and personally managing the patient. This critical care time included obtaining a history; examining the patient; pulse oximetry; ordering and review of studies; arranging urgent treatment with development of a management plan; evaluation of patient's response to treatment; frequent reassessment; and discussions with other providers. It was exclusive of separately billable procedures and treating other patients and teaching time. Please see Assessment and Plan section and the rest of the note for further information on patient assessment and treatment Subjective Date/time seen: 01/22/22 1 reports his breathing is improved Exam Narrative: General: Pleasant gentleman in no acute distress at this time HEENT: Moist oral mucosa, pupils are equal and reactive, sclera is clear Neck: Supple, no lymphadenopathy Respiratory: Coarse breath sounds bilaterally, no wheezing, few rales bilaterally Cardiac: Regular rate and rhythm, S1-S2 is normal Abdomen: Soft, nontender, nondistended, normoactive bowel sounds, obese Extremities: . Pedal pulses are palpable, trace edema Neuro: Patient is awake, alert, oriented x3, able to answer all questions, provide history and follows simple commands in all extremities Skin: Discoloration of toes on the left foot, patient states he fell on the stairs hurting his toes Psych: Normal affect and mentation Const: General: cooperative, no acute distress, well developed, alert, awake, ill appearing and tired appearing Nutritional Appearance: average body habitus and well nourished Orientation/consciousness: oriented to person, oriented to place, oriented to time and patient oriented x3 Limitations: no limitations HENMT: Head: normal to inspection, No palpable skull fracture present, normocephalic and atraumatic Ears: hearing grossly normal bilaterally and
[2022-01-22 12:16] LABS: Glucose Point of Care 194 mg/dl (65-105)
[2022-01-22 17:19] LABS: Glucose Point of Care 287 mg/dl (65-105)
[2022-01-22] MEDS: INSULIN ASPART (*BKC) 100 UNITS/ML SUB-Q (17:26)
[2022-01-22] MEDS: QUEtiapine FUMARATE 25 MG TABLET 50 MG PO (21:33)
[2022-01-22] MEDS: ENOXAPARIN 40 MG/0.4 ML SYRINGE SUB-Q (21:34)
[2022-01-22] MEDS: INSULIN GLARGINE (*BKC) 100 UNITS/ML 40 UNITS SUB-Q (21:34)
[2022-01-22] MEDS: ACETAMINOPHEN 325 MG TABLET 650 MG PO (21:39)
[2022-01-22 21:43] LABS: Glucose Point of Care 308 mg/dl (65-105)
[2022-01-23] VITALS (20 sets, daily range): BP systolic 153–160; BP diastolic 60–89; PULSE 66–92; RESP 14–18; TEMP 35.9–36.6; O2SAT 92–96
[2022-01-23] MEDS: IPRATROPIUM BR 0.02% INH SOLN 0.5 MG/2.5 ML VIAL INHALATION ×4 (02:57→19:45)
[2022-01-23] MEDS: ALBUTEROL SULFATE NEB 2.5 MG/3 ML INH INHALATION ×4 (02:57→19:46)
[2022-01-23 06:30] LABS: Basophils Percent Auto 0.1 % (0.2-1.2); Eosinophils Absolute Auto 0.6 K/mm3 (0-0.3); Eosinophils Percent Auto 3.9 % (0-4.4); Hematocrit 35.6 % (42.0-52.0); Hemoglobin 11.4 g/dL (14.0-18.0); Immature Granulocyte Absolute 0.19 K/mm3 (0.00-0.031); Immature Granulocyte Percent A 1.3 % (0-0.5); Lymphocytes Absolute Auto 1.68 K/mm3 (0.9-3.2); Lymphocytes Percent Auto 11.6 % (18.3-44.2); Mean Corpuscular Hemoglobin 29.5 pg (26-34); Mean Corpuscular Volume 92.2 fl (80-100); Mean Platelet Volume 11.2 fl (7.4-10.4); Monocytes Percent Auto 6.6 % (2.6-8.5); Neutrophils Absolute Auto 11.1 K/mm3 (1.3-6.7); Neutrophils Percent Auto 76.5 % (45.5-73.1); Platelet Count Result 241 k/mm3 (150-375); Red Blood Count 3.86 M/mm3 (4.6-6.20); Red Cell Distribution Width 13.3 % (11.5-14.5); White Blood Count 14.5 K/mm3 (4.5-10.0)
[2022-01-23 06:39] LABS: Alanine Aminotransferase 43 U/L (6-50); Albumin Level 2.4 g/dL (3.5-5.1); Alkaline Phosphatase 82 U/L (38-126); Anion Gap 2 mmol/L (8-16); Aspartate Amino Transferase 38 U/L (17-59); Bilirubin,Total 0.6 mg/dL (0.2-1.3); Blood Urea Nitrogen 24 mg/dL (9-20); Calcium 7.4 mg/dL (8.4-10.2); Carbon Dioxide 37 mmol/L (22-30); Chloride 101 mmol/L (98-107); Estimated CRCL calculation 80 ml/min; Estimated Glomerular Filt Rate > 60; Glucose 210 mg/dL (65-110); Magnesium 1.5 mg/dL (1.6-2.3); Phosphorus 3.6 mg/dL (2.5-4.5); Potassium 3.5 mmol/L (3.4-5.0); Sodium 140 mmol/L (137-145)
[2022-01-23 07:52] LABS: Glucose Point of Care 183 mg/dl (65-105)
[2022-01-23] MEDS: PANTOPRAZOLE SODIUM IV 40 MG VIAL IV PUSH (08:55)
[2022-01-23] MEDS: PREGABALIN (*CRX) 75 MG CAPSULE 150 MG PO ×2 (08:55→20:52)
[2022-01-23] MEDS: ATORVASTATIN 40 MG TABLET 80 MG PO (08:55)
[2022-01-23] MEDS: BENZONATATE 100 MG CAPSULE 200 MG PO ×3 (08:56→17:17)
[2022-01-23] MEDS: SERTRALINE HCL 50 MG TABLET 100 MG PO (08:56)
[2022-01-23] MEDS: ASPIRIN 81 MG ENTERIC TABLET PO (08:56)
[2022-01-23] MEDS: busPIRone HCL 10 MG TABLET PO ×2 (08:56→20:53)
[2022-01-23] MEDS: ACETAMINOPHEN 325 MG TABLET 650 MG PO ×2 (09:13→23:02)
[2022-01-23] MEDS: MICONAZOLE NITRATE 2% CREAM 30 GM TUBE 1 APPLIC TOPICAL ×2 (09:14→20:52)
--- NOTE | 2022-01-23 10:40 | PM.DS ---
DS: Admitting Diagnosis Discharge Date January 23, 2022 Admitting Diagnosis Pneumonia DS: Discharge Diagnosis Discharge Diagnosis (1) Septic shock: Code(s): A41.9 - Sepsis, unspecified organism; R65.21 - Severe sepsis with septic shock Status: Acute Assessment and Plan: Present on admission, now resolved (2) Pneumonia: Code(s): J18.9 - Pneumonia, unspecified organism Status: Acute Assessment and Plan: 01/17/2022 CT scan of the chest abdomen and pelvis at the outside hospital showed she bilateral airspace disease consistent with pneumonia likely superimposed on chronic pulmonary fibrosis IV antibiotics of Rocephin and azithromycin in the hospital. White count improved. Sepsis resolved. Will be discharged on the (3) Diabetic ketoacidosis: Code(s): E11.10 - Type 2 diabetes mellitus with ketoacidosis without coma Status: Acute Assessment and Plan: Monitor blood sugar. Continue insulin (4) Acute kidney injury: Code(s): N17.9 - Acute kidney failure, unspecified Status: Acute Assessment and Plan: Monitor kidney function and electrolytes Creatinine today is 1.5 (5) Pulmonary fibrosis: Code(s): J84.10 - Pulmonary fibrosis, unspecified Status: Acute Assessment and Plan: CT scan suggests chronic pulmonary fibrosis Patient has a heavy history of smoking but he quit 30 years ago (6) Cough: Code(s): R05.9 - Cough, unspecified Status: Acute Assessment and Plan: Continue Tessalon and guaifenesin with codeine Add dextromethorphan DS: Summary Hospital Course Hospital Course: Patient was admitted for sepsis and pneumonia. This is now resolved. Patient will be discharged on Omnicef as well. Home oxygen we setup needed. Time Spent with Patient Time attestation: Total time spent providing and/or coordinating discharge services: Exam Narrative: General: Pleasant gentleman in no acute distress at this time HEENT: Moist oral mucosa, pupils are equal and reactive, sclera is clear Neck: Supple, no lymphadenopathy Respiratory: Coarse breath sounds bilaterally, no wheezing, few rales bilaterally Cardiac: Regular rate and rhythm, S1-S2 is normal Abdomen: Soft, nontender, nondistended, normoactive bowel sounds, obese Extremities: . Pedal pulses are palpable, trace edema Neuro: Patient is awake, alert, oriented x3, able to answer all questions, provide history and follows simple commands in all extremities Skin: Discoloration of toes on the left foot, patient states he fell on the stairs hurting his toes Psych: Normal affect and mentation DS: Data Data Completed and Pending Labs on day of discharge: Labs from last 24 hours 01/23/22 01/23/22 01/23/22 07:46 05:27 05:27 WBC 14.5 H RBC 3.86 L Hgb 11.4 L Hct 35.6 L MCV 92.2 MCH 29.5 MCHC 32.0 RDW 13.3 Plt Count 241 MPV 11.2 H Immature Gran % (Auto) 1.3 H Neut % (Auto) 76.5 H Lymph % (Auto) 11.6 L Warren % (Auto) 6.6 Eos % (Auto) 3.9 Baso % (Auto) 0.1 L Lymph # (Auto) 1.68 Warren # (Auto) 1.0 H Eos # (Auto) 0.6 H Baso # (Auto) 0.0 Abs Immat Gran (auto) 0.19 H Absolute Neuts (auto) 11.1 H Absolute Nucleated RBC 0.0 Nucleated RBC % 0.0 Sodium 140 Potassium 3.5 Chloride 101 Carbon Dioxide 37 H Anion Gap 2 L BUN 24 H Creatinine 0.90 Estim Creat Clear Calc 80 Estimated GFR > 60 Glucose 210 H POC Capillary Glucose 183 H Calcium 7.4 L Phosphorus 3.6 Magnesium 1.5 L Total Bilirubin 0.6 AST 38 ALT 43 Alkaline Phosphatase 82 Total Protein 5.0 L Albumin 2.4 L 01/22/22 01/22/22 01/22/22 21:39 17:06 11:54 WBC RBC Hgb Hct MCV MCH MCHC RDW Plt Count MPV Immature Gran % (Auto) Neut % (Auto) Lymph % (Auto) Warren % (Auto) Eos % (Auto) Baso % (Auto) Lymph # (
[2022-01-23 12:02] LABS: Glucose Point of Care 251 mg/dl (65-105)
[2022-01-23] MEDS: INSULIN ASPART (*BKC) 100 UNITS/ML SUB-Q ×2 (12:30→17:14)
[2022-01-23 16:53] LABS: Glucose Point of Care 304 mg/dl (65-105)
[2022-01-23] MEDS: INSULIN GLARGINE (*BKC) 100 UNITS/ML 40 UNITS SUB-Q (20:47)
[2022-01-23 20:50] LABS: Glucose Point of Care 261 mg/dl (65-105)
[2022-01-23] MEDS: ENOXAPARIN 40 MG/0.4 ML SYRINGE SUB-Q (20:52)
[2022-01-23] MEDS: QUEtiapine FUMARATE 25 MG TABLET 50 MG PO (20:53)
[2022-01-24] VITALS (7 sets, daily range): BP systolic 162; BP diastolic 65; PULSE 69–87; RESP 12–16; TEMP 36.8; O2SAT 99
--- NOTE | 2022-01-24 05:05 | PCRCNOTE ---
Window of time for administration has passed. See next scheduled administration.
[2022-01-24 07:51] LABS: Glucose Point of Care 128 mg/dl (65-105)
[2022-01-24] MEDS: IPRATROPIUM BR 0.02% INH SOLN 0.5 MG/2.5 ML VIAL INHALATION (08:23)
[2022-01-24] MEDS: ALBUTEROL SULFATE NEB 2.5 MG/3 ML INH INHALATION (08:23)
[2022-01-24] MEDS: BENZONATATE 100 MG CAPSULE 200 MG PO (10:01)
[2022-01-24] MEDS: ASPIRIN 81 MG ENTERIC TABLET PO (10:01)
[2022-01-24] MEDS: MICONAZOLE NITRATE 2% CREAM 30 GM TUBE 1 APPLIC TOPICAL (10:01)
[2022-01-24] MEDS: PANTOPRAZOLE SODIUM IV 40 MG VIAL IV PUSH (10:01)
[2022-01-24] MEDS: busPIRone HCL 10 MG TABLET PO (10:01)
[2022-01-24] MEDS: ATORVASTATIN 40 MG TABLET 80 MG PO (10:01)
[2022-01-24] MEDS: PREGABALIN (*CRX) 75 MG CAPSULE 150 MG PO (10:02)
[2022-01-24] MEDS: SERTRALINE HCL 50 MG TABLET 100 MG PO (10:02)
--- NOTE | 2022-01-24 10:02 | PC.NURSE ---
morning medications scanned but [facility] did not save. med packages thrown away. Manually scanned in.
[2022-01-24 12:11] LABS: Glucose Point of Care 218 mg/dl (65-105)
--- NOTE | 2022-01-24 12:11 | PM.DS ---
DS: Admitting Diagnosis Discharge Date January 24, 2022 Admitting Diagnosis Pneumonia DS: Discharge Diagnosis Discharge Diagnosis (1) Septic shock: Code(s): A41.9 - Sepsis, unspecified organism; R65.21 - Severe sepsis with septic shock Status: Acute Assessment and Plan: Present on admission, now resolved (2) Pneumonia: Code(s): J18.9 - Pneumonia, unspecified organism Status: Acute Assessment and Plan: 01/17/2022 CT scan of the chest abdomen and pelvis at the outside hospital showed she bilateral airspace disease consistent with pneumonia likely superimposed on chronic pulmonary fibrosis IV antibiotics of Rocephin and azithromycin in the hospital. White count improved. Sepsis resolved. Will be discharged on the (3) Diabetic ketoacidosis: Code(s): E11.10 - Type 2 diabetes mellitus with ketoacidosis without coma Status: Acute Assessment and Plan: Monitor blood sugar. Continue insulin (4) Acute kidney injury: Code(s): N17.9 - Acute kidney failure, unspecified Status: Acute Assessment and Plan: Monitor kidney function and electrolytes Creatinine today is 1.5 (5) Pulmonary fibrosis: Code(s): J84.10 - Pulmonary fibrosis, unspecified Status: Acute Assessment and Plan: CT scan suggests chronic pulmonary fibrosis Patient has a heavy history of smoking but he quit 30 years ago (6) Cough: Code(s): R05.9 - Cough, unspecified Status: Acute Assessment and Plan: Continue Tessalon and guaifenesin with codeine Add dextromethorphan DS: Summary Hospital Course Hospital Course: Patient was admitted for sepsis and pneumonia.? Respiratory status is much improved. Patient currently is sitting in his chair not requiring any oxygen. Omnicef be continued on discharge. Otherwise he can be discharged to rehab Time Spent with Patient Time attestation: Total time spent providing and/or coordinating discharge services: Exam Narrative: General: Pleasant gentleman in no acute distress at this time HEENT: Moist oral mucosa, pupils are equal and reactive, sclera is clear Neck: Supple, no lymphadenopathy Respiratory: Coarse breath sounds bilaterally, no wheezing, few rales bilaterally Cardiac: Regular rate and rhythm, S1-S2 is normal Abdomen: Soft, nontender, nondistended, normoactive bowel sounds, obese Extremities: . Pedal pulses are palpable, trace edema Neuro: Patient is awake, alert, oriented x3, able to answer all questions, provide history and follows simple commands in all extremities Skin: Discoloration of toes on the left foot, patient states he fell on the stairs hurting his toes Psych: Normal affect and mentation DS: Data Data Completed and Pending Labs on day of discharge: Labs from last 24 hours 01/24/22 01/24/22 01/23/22 12:06 07:49 20:46 POC Capillary Glucose 218 H 128 H 261 H 01/23/22 16:50 POC Capillary Glucose 304 H Discharge Plan Discharge Attending physician on discharge: Manish Atwood Discharging Clinician: Manish Atwood Patient Disposition: SNF Activity: no preference Diet: as tolerated Discharge Instructions: Care Coordination: patient to have [facility] for PT/OT eval and treat, and longterm. They can be reached at [phone] and will contact you to schedule their first visit. Patient Instructions: Antibiotic Form, Acute Kidney Injury (DC), Liang Catheter Placement and Care (DC), Sepsis (DC), Community Acquired Pneumonia (DC), Hypotension (DC) Stand Alone Forms: General Discharge Information Discharge Medications: New cefdinir 300 mg capsule 300 mg PO Q12H Qty: 10 0RF Continued trazodone 50 mg tablet 50 mg PO HS tramadol 50 mg tablet 100 mg PO TID buspirone 10 mg tablet 10 mg PO Q12H insulin lispro [Humalog U-100 Insulin] 100 unit/mL solution See Rx Instructions .ROUTE .COMPL
[2022-01-24] MEDS: INSULIN ASPART (*BKC) 100 UNITS/ML SUB-Q (13:07)
[2022-01-24 18:00] LABS: Chloride Rand Ur <20 mmol/L (32-290); Creatinine Random Urine 75 mg/dL (20-320)
== END 2022-01-24 13:23 | disposition swing bed (61) | DRG 871 ==
LOC: ANHIMU 17:33 → ANHICU 01-18 12:43 → ANHIMU 01-19 16:53 → ANH3MED 01-21 11:12 → ANHICU 01-25 14:58 → ANHIMU 01-25 14:58
PROVIDERS: Internal Medicine; Nurse Practitioner; Student in an Organized Health Care Education/Training Program; Admitting Provider Internal Medicine; PCP Family Medicine; Visit Provider Chiropractor
DX: A41.9 Sepsis, unspecified organism (principal); J18.9 Pneumonia, unspecified organism; R65.21 Severe sepsis with septic shock; E11.10 Type 2 diabetes mellitus with ketoacidosis without coma; N17.9 Acute kidney failure, unspecified; I95.9 Hypotension, unspecified; I25.10 Atherosclerotic heart disease of native coronary artery without angina pectoris; J84.10 Pulmonary fibrosis, unspecified; E86.0 Dehydration; E78.00 Pure hypercholesterolemia, unspecified; E11.40 Type 2 diabetes mellitus with diabetic neuropathy, unspecified; G25.81 Restless legs syndrome; N40.0 Benign prostatic hyperplasia without lower urinary tract symptoms; F32.A Depression, unspecified; Z96.41 Presence of insulin pump (external) (internal); I25.2 Old myocardial infarction; Z95.5 Presence of coronary angioplasty implant and graft; Z87.891 Personal history of nicotine dependence; Z79.82 Long term (current) use of aspirin
CPT/HCPCS: 36415; 36600; 71045; 74018; 76775; 80048; 80053; 81001; 82375; 82436; 82550; 82570; 82805; 82948; 83036; 83050; 83605; 83735; 83880; 84100; 84133; 84300; 85025; 85999; 87040; 87070; 87081; 87086; 87205; 93923; 94640; 97110; 97116; 97161; 97165; 97530; A9270; C1751; C8929; C9113; C9803; J0456; J0610; J0696; J0780; J1650; J1720; J1815; J2405; J2765; J3370; J3480; J7030; J7120; Q9957; U0003; U0005

== ENCOUNTER 2022-01-24 13:56 | Inpatient (IN) | payer MEDICARE, SELFPAY ==
[2022-01-24 14:00] VITALS: BP 176/76; PULSE 77; RESP 16; TEMP 37.1; O2SAT 94
--- NOTE | 2022-01-24 14:00 | PC.NURSE ---
Patient arrived to facility via private vehicle, transferred from [facility]. W/C used to transport patient from lobby to Room 208. Patient able to transfer from w/c to bed with 1 assist walker and gait belt. Patient and his oriented to room, hospital environment and call light. Patient not in possession of valuables, drugs, or medication. Patient has full upper and lower dentures. Patient wears glasses, but they are not present at this time.
[2022-01-24 16:00] VITALS: BP 179/69; PULSE 68; RESP 16; TEMP 36.6; O2SAT 94
[2022-01-24 16:36] LABS: Glucose Point of Care 177 mg/dl (65-105)
--- NOTE | 2022-01-24 18:15 | PC.NURSE ---
Urinary catheter discontinued. Patient tolerated well. 350ml dark yellow urine in collection bag.
[2022-01-24 19:39] VITALS: PULSE 68; RESP 16; O2SAT 94
[2022-01-24] MEDS: CEFDINIR 300 MG CAPSULE PO (20:07)
[2022-01-24] MEDS: PREGABALIN (*CRX) 50 MG CAPSULE 150 MG PO (20:07)
[2022-01-24] MEDS: TAMSULOSIN HCL 0.4 MG CAPSULE PO (20:08)
[2022-01-24] MEDS: QUEtiapine FUMARATE 25 MG TABLET 50 MG PO (20:08)
[2022-01-24 20:09] VITALS: PULSE 82
[2022-01-24] MEDS: busPIRone HCL 5 MG TABLET 10 MG PO (20:09)
[2022-01-24] MEDS: carvediloL 12.5 MG TABLET 25 MG PO (20:09)
[2022-01-24] MEDS: traZODone HCL 50 MG TABLET PO (20:10)
[2022-01-24] MEDS: ACETAMINOPHEN 325 MG TABLET 650 MG PO (20:10)
[2022-01-24 20:12] LABS: Glucose Point of Care 223 mg/dl (65-105)
[2022-01-24] MEDS: HYDROcodone/acetaminophen (*CRX) 5-325 MG TABLET 1 TAB PO (21:31)
[2022-01-24 23:49] VITALS: BP 155/82; PULSE 82; RESP 18; TEMP 36.6; O2SAT 94
[2022-01-25 05:04] LABS: Hematocrit 35.4 % (37.0-46.0); Hemoglobin 11.6 g/dL (12.4-15.3); Mean Corpuscular HGB Conc 32.8 g/dL (32.0-36.0); Mean Corpuscular Hemoglobin 30.1 pg (27.0-31.0); Mean Corpuscular Volume 91.7 fL (78.0-102.0); Mean Platelet Volume 11.1 fl (8.7-11.0); Platelet Count Result 252 K/mm3 (150-420); Red Blood Count 3.86 M/mm3 (4.70-6.10); Red Cell Distribution Width 13.2 % (11.6-14.4); White Blood Count 10.6 K/mm3 (4.8-10.8)
[2022-01-25 05:24] LABS: Alanine Aminotransferase 41 U/L (16-63); Albumin Level 1.9 g/dL (3.4-5.0); Alkaline Phosphatase 71 U/L (46-116); Anion Gap 3 mmol/L (8-16); Aspartate Amino Transferase 32 U/L (15-37); Bilirubin,Total 0.5 mg/dL (0.00-1.00); Blood Urea Nitrogen 16 mg/dL (7-18); Calcium 7.8 mg/dL (8.5-10.1); Carbon Dioxide 33 mmol/L (21-32); Chloride 103 mmol/L (98-108); Estimated Glomerular Filt Rate > 60; Glucose 135 mg/dL (70-99); Osmolality Calculated 291 mOsm/kg (285-295); Potassium 3.1 mmol/L (3.5-5.1); Sodium 139 mmol/L (136-145); Total Protein 5.4 g/dL (6.4-8.2)
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
[2022-01-25 08:00] VITALS: BP 170/66; PULSE 66; RESP 18; TEMP 36.7; O2SAT 93
[2022-01-25 08:09] LABS: Glucose Point of Care 166 mg/dl (65-105)
[2022-01-25] MEDS: CEFDINIR 300 MG CAPSULE PO ×2 (08:24→20:59)
[2022-01-25] MEDS: ISOSORBIDE MONONITRATE 30 MG TAB.ER.24H PO (08:25)
[2022-01-25] MEDS: lisinopriL 20 MG TABLET 40 MG PO (08:25)
[2022-01-25] MEDS: PREGABALIN (*CRX) 50 MG CAPSULE 150 MG PO ×2 (08:25→20:55)
[2022-01-25] MEDS: busPIRone HCL 5 MG TABLET 10 MG PO ×2 (08:26→20:56)
[2022-01-25 08:27] VITALS: PULSE 66
[2022-01-25] MEDS: carvediloL 12.5 MG TABLET 25 MG PO ×2 (08:27→20:55)
[2022-01-25] MEDS: ASPIRIN 81 MG ENTERIC TABLET PO (08:27)
[2022-01-25] MEDS: SERTRALINE HCL 50 MG TABLET 100 MG PO (08:27)
[2022-01-25] MEDS: FINASTERIDE 5 MG TABLET PO (08:28)
[2022-01-25] MEDS: ATORVASTATIN 40 MG TABLET 80 MG PO (08:28)
[2022-01-25] MEDS: amLODIPine BESYLATE 5 MG TABLET 10 MG PO (08:28)
[2022-01-25 11:43] LABS: Glucose Point of Care 306 mg/dl (65-105)
[2022-01-25 16:00] VITALS: BP 169/61; PULSE 66; RESP 16; TEMP 36.7; O2SAT 94
[2022-01-25 16:33] LABS: Glucose Point of Care 337 mg/dl (65-105)
[2022-01-25] MEDS: FUROSEMIDE 40 MG TABLET PO (16:48)
[2022-01-25 20:55] VITALS: PULSE 68
[2022-01-25] MEDS: traZODone HCL 50 MG TABLET PO (20:55)
[2022-01-25] MEDS: TAMSULOSIN HCL 0.4 MG CAPSULE PO (20:55)
[2022-01-25 20:57] LABS: Glucose Point of Care 365 mg/dl (65-105)
[2022-01-25] MEDS: QUEtiapine FUMARATE 25 MG TABLET 50 MG PO (20:59)
[2022-01-25] MEDS: HYDROcodone/acetaminophen (*CRX) 5-325 MG TABLET 1 TAB PO (22:02)
[2022-01-26] VITALS: BP 138/68; PULSE 61; RESP 20; TEMP 36.2; O2SAT 94
[2022-01-26 07:24] LABS: Glucose Point of Care 430 mg/dl (65-105)
[2022-01-26] MEDS: HYDROcodone/acetaminophen (*CRX) 5-325 MG TABLET 1 TAB PO ×3 (07:24→20:06)
[2022-01-26 07:25] LABS: Glucose Point of Care > 450 mg/dl (65-105)
--- NOTE | 2022-01-26 07:35 | PC.NURSE ---
GENOMICS SCIENTIST contacted regarding glucose reading of 430 this am
[2022-01-26 07:50] VITALS: BP 146/49; PULSE 73; RESP 14; TEMP 36.5; O2SAT 94
[2022-01-26] MEDS: busPIRone HCL 5 MG TABLET 10 MG PO ×2 (08:05→20:06)
[2022-01-26] MEDS: ASPIRIN 81 MG ENTERIC TABLET PO (08:06)
[2022-01-26] MEDS: amLODIPine BESYLATE 5 MG TABLET 10 MG PO (08:06)
[2022-01-26] MEDS: ATORVASTATIN 40 MG TABLET 80 MG PO (08:07)
[2022-01-26] MEDS: SERTRALINE HCL 50 MG TABLET 100 MG PO (08:07)
[2022-01-26 08:08] VITALS: PULSE 74
[2022-01-26] MEDS: lisinopriL 20 MG TABLET 40 MG PO (08:08)
[2022-01-26] MEDS: CEFDINIR 300 MG CAPSULE PO ×2 (08:08→20:06)
[2022-01-26] MEDS: carvediloL 12.5 MG TABLET 25 MG PO ×2 (08:08→20:05)
[2022-01-26] MEDS: FUROSEMIDE 40 MG TABLET PO (08:09)
[2022-01-26] MEDS: ISOSORBIDE MONONITRATE 30 MG TAB.ER.24H PO (08:09)
[2022-01-26] MEDS: PREGABALIN (*CRX) 50 MG CAPSULE 150 MG PO ×2 (08:09→20:07)
[2022-01-26] MEDS: FINASTERIDE 5 MG TABLET PO (08:09)
--- NOTE | 2022-01-26 09:16 | P.PNCROSS_ITS ---
Event Note Event Note Event Note: Patient has swollen leg and was started on lasix last night. I spoke with phillip vallecillo about elevating legs , utilizing CHASE hose and He has been hypokalemic added potassium will recheck labs on monday
[2022-01-26] MEDS: POTASSIUM CHLORIDE 20 MEQ TABLET 40 MEQ PO ×2 (10:06→16:29)
--- NOTE | 2022-01-26 11:48 | PC.NURSE ---
ROUTE CARRIER notified of elevated blood glucose.
[2022-01-26 11:51] LABS: Glucose Point of Care > 450 mg/dl (65-105)
[2022-01-26 13:05] LABS: Glucose Point of Care > 450 mg/dl (65-105)
[2022-01-26 13:05] LABS: Glucose Point of Care > 450 mg/dl (65-105)
--- NOTE | 2022-01-26 13:05 | PC.NURSE ---
glucose retested. PLANT ENGINEER notified of results
[2022-01-26 13:39] LABS: Glucose 502 mg/dL (70-99)
--- NOTE | 2022-01-26 14:00 | PC.NURSE ---
spoke with cass amaya PATENT EXAMINER and order to to bedside glucose at 1500
[2022-01-26] MEDS: SODIUM CHLORIDE 0.9% IV 1,000 ML 250 ML IV CONT (14:43)
--- NOTE | 2022-01-26 14:54 | PC.NURSE ---
Order received to give patient 1x 1 liter of NS. IV started and fluids started
[2022-01-26 15:13] LABS: Glucose Point of Care 398 mg/dl (65-105)
[2022-01-26 16:00] VITALS: BP 143/50; PULSE 65; RESP 16; TEMP 36.5; O2SAT 97
[2022-01-26 16:34] LABS: Glucose Point of Care 340 mg/dl (65-105)
[2022-01-26 19:53] LABS: Glucose Point of Care 410 mg/dl (65-105)
[2022-01-26 20:05] VITALS: PULSE 68
[2022-01-26] MEDS: QUEtiapine FUMARATE 25 MG TABLET 50 MG PO (20:07)
[2022-01-26] MEDS: TAMSULOSIN HCL 0.4 MG CAPSULE PO (20:07)
[2022-01-26] MEDS: traZODone HCL 50 MG TABLET PO (20:07)
[2022-01-26] MEDS: INSULIN GLARGINE (*BKC) 100 UNITS/ML 10 UNITS SUB-Q (20:21)
[2022-01-26] MEDS: FUROSEMIDE INJ 20 MG/2 ML VIAL 10 MG IV PUSH (20:26)
[2022-01-26 21:06] LABS: Glucose Point of Care 389 mg/dl (65-105)
[2022-01-26 23:49] VITALS: BP 152/58; PULSE 70; RESP 18; TEMP 36.5; O2SAT 97
[2022-01-27 01:56] LABS: Glucose Point of Care 446 mg/dl (65-105)
[2022-01-27 05:06] LABS: Hematocrit 32.3 % (37.0-46.0); Hemoglobin 10.7 g/dL (12.4-15.3); Mean Corpuscular HGB Conc 33.1 g/dL (32.0-36.0); Mean Corpuscular Hemoglobin 30.7 pg (27.0-31.0); Mean Corpuscular Volume 92.6 fL (78.0-102.0); Mean Platelet Volume 11.6 fl (8.7-11.0); Platelet Count Result 234 K/mm3 (150-420); Red Blood Count 3.49 M/mm3 (4.70-6.10); Red Cell Distribution Width 13.5 % (11.6-14.4); White Blood Count 10.9 K/mm3 (4.8-10.8)
[2022-01-27 05:30] LABS: Anion Gap 8 mmol/L (8-16); Blood Urea Nitrogen 27 mg/dL (7-18); Calcium 7.5 mg/dL (8.5-10.1); Carbon Dioxide 28 mmol/L (21-32); Chloride 99 mmol/L (98-108); Estimated CRCL calculation 59 ml/min; Estimated Glomerular Filt Rate 56; NT Pro B Type Natriuretic Pept 651 pg/mL (0-450); Osmolality Calculated 304 mOsm/kg (285-295); Potassium 4.2 mmol/L (3.5-5.1); Sodium 135 mmol/L (136-145)
--- NOTE | 2022-01-27 05:30 | PC.NURSE ---
lab called to report a critical glucose of 438.
[2022-01-27 05:31] LABS: Glucose 438 mg/dL (70-99)
--- NOTE | 2022-01-27 06:10 | PC.NURSE ---
Mike Troncoso NP, notified of pt's critical glucose value; Orders received and noted.
[2022-01-27 06:46] LABS: Acetone Negative (Negative)
[2022-01-27 07:31] LABS: Glucose Point of Care 398 mg/dl (65-105)
[2022-01-27 08:00] VITALS: BP 160/50; PULSE 84; RESP 18; TEMP 36.6; O2SAT 92
[2022-01-27] MEDS: busPIRone HCL 5 MG TABLET 10 MG PO ×2 (08:48→20:59)
[2022-01-27] MEDS: ATORVASTATIN 40 MG TABLET 80 MG PO (08:48)
[2022-01-27] MEDS: ASPIRIN 81 MG ENTERIC TABLET PO (08:48)
[2022-01-27] MEDS: lisinopriL 20 MG TABLET 40 MG PO (08:49)
[2022-01-27] MEDS: SERTRALINE HCL 50 MG TABLET 100 MG PO (08:49)
[2022-01-27] MEDS: amLODIPine BESYLATE 5 MG TABLET 10 MG PO (08:49)
[2022-01-27] MEDS: CEFDINIR 300 MG CAPSULE PO ×2 (08:49→20:57)
[2022-01-27 08:50] VITALS: PULSE 84
[2022-01-27] MEDS: FINASTERIDE 5 MG TABLET PO (08:50)
[2022-01-27] MEDS: POTASSIUM CHLORIDE 20 MEQ TABLET 40 MEQ PO ×2 (08:50→17:36)
[2022-01-27] MEDS: FUROSEMIDE 40 MG TABLET PO (08:50)
[2022-01-27] MEDS: carvediloL 12.5 MG TABLET 25 MG PO ×2 (08:50→20:58)
[2022-01-27] MEDS: ISOSORBIDE MONONITRATE 30 MG TAB.ER.24H PO (08:50)
[2022-01-27] MEDS: PREGABALIN (*CRX) 50 MG CAPSULE 150 MG PO ×2 (08:51→20:57)
--- NOTE | 2022-01-27 11:20 | P.PNCROSS_ITS ---
Event Note Event Note Event Note: Call and spoke with Rebecca at Dr De La Torre office and she called me back. I was ins tructed to put patient back on his insulin pump. I was informed that patient take twice as much insulin than what we are giving him and that his last dump he was taking 85 units of homolog a day and he does well with controlling his blood sugars . Now that he is alert he should go back on the pump and not this hourly blood sugars. Patient can get up to 120 units a day. I informed them he is set to go home tomorrow . I was informed patient has a dr appointment on the of this month at 0930 and he should be fine. I gave them what patient has been running and was informed because we are not giving him enough insulin he has been on very high doses of insulin for a long time. I placed a order for patient to handle his insulin pump
[2022-01-27 11:29] LABS: Glucose Point of Care 332 mg/dl (65-105)
[2022-01-27] MEDS: HYDROcodone/acetaminophen (*CRX) 5-325 MG TABLET 1 TAB PO ×2 (11:37→21:00)
--- NOTE | 2022-01-27 12:15 | PCDIET ---
Pt gave bolus of 10u humalog via insulin pump.
--- NOTE | 2022-01-27 12:15 | PC.NURSE ---
Pt gave bolus 10u humalog via insulin pump.
[2022-01-27 12:40] LABS: Appearance Urine Clear (Clear); Bilirubin Urine Negative (Negative); Color Urine Light Yellow (Yellow); Glucose Urine UA 3+ (Negative); Ketones Urine Trace (Negative); Leukocyte Esterase Ur Negative LEU/UL (Negative); Nitrate Urine Negative (Negative); Protein Urine Negative (Negative); Urobilinogen Urine 0.2 mg/dL (0.2-1.0); pH Urine 6.5 (5.0-8.0)
[2022-01-27 12:53] LABS: Add Urine Microscopic? YES; Blood Urine Trace-lysed (Negative); RBC Urine None seen /hpf (0-2); WBC Urine None seen /hpf (0-3)
[2022-01-27 12:54] LABS: Bacteria Urine None seen /hpf
--- NOTE | 2022-01-27 14:00 | PC.NURSE ---
Pt gave bolus of 12u humalog via insulin pump.
[2022-01-27 14:04] LABS: Glucose Point of Care 385 mg/dl (65-105)
[2022-01-27 16:00] VITALS: BP 136/68; PULSE 71; RESP 17; TEMP 36.4; O2SAT 93
[2022-01-27 16:37] LABS: Glucose Point of Care 241 mg/dl (65-105)
--- NOTE | 2022-01-27 17:15 | PC.NURSE ---
Pt bolus 6u via insulin pump based on blood sugar of 196 on his own device and carbs consumed with dinner.
--- NOTE | 2022-01-27 19:00 | PC.NURSE ---
Blood glucose checked by pt at 188.
[2022-01-27 20:00] VITALS: PULSE 71; RESP 17; O2SAT 93
[2022-01-27] MEDS: TAMSULOSIN HCL 0.4 MG CAPSULE PO (20:57)
[2022-01-27 20:58] VITALS: PULSE 73
[2022-01-27] MEDS: QUEtiapine FUMARATE 25 MG TABLET 50 MG PO (20:59)
[2022-01-27] MEDS: traZODone HCL 50 MG TABLET PO (21:00)
--- NOTE | 2022-01-27 21:00 | PC.NURSE ---
Blood glucose checked by pt at 135, requested OJ given and tolerated well.
[2022-01-27 23:56] VITALS: BP 127/43; PULSE 72; RESP 18; TEMP 36.6; O2SAT 96
[2022-01-28 05:43] LABS: Alanine Aminotransferase 41 U/L (16-63); Alkaline Phosphatase 75 U/L (46-116); Anion Gap 4 mmol/L (8-16); Aspartate Amino Transferase 50 U/L (15-37); Bilirubin,Total 0.4 mg/dL (0.00-1.00); Blood Urea Nitrogen 20 mg/dL (7-18); Calcium 7.7 mg/dL (8.5-10.1); Carbon Dioxide 31 mmol/L (21-32); Chloride 105 mmol/L (98-108); Estimated CRCL calculation 66 ml/min; Estimated Glomerular Filt Rate > 60; Glucose 108 mg/dL (70-99); Osmolality Calculated 293 mOsm/kg (285-295); Potassium 3.6 mmol/L (3.5-5.1); Sodium 140 mmol/L (136-145); Total Protein 5.5 g/dL (6.4-8.2)
--- NOTE | 2022-01-28 07:14 | PM.DS ---
DS: Admitting Diagnosis Discharge Date 01/28/2022 Admitting Diagnosis Rehab DS: Discharge Diagnosis Discharge Diagnosis (1) BPH (benign prostatic hyperplasia): Code(s): N40.0 - Benign prostatic hyperplasia without lower urinary tract symptoms Status: Acute Assessment and Plan: Continue Flomax and Proscar (2) Insomnia: Qualifiers: Insomnia type: unspecified Qualified Code(s): G47.00 - Insomnia, unspecified Code(s): G47.00 - Insomnia, unspecified Status: Chronic Assessment and Plan: Continue Seroquel and added trazodone (3) Depression: Qualifiers: Depression Type: other depression Qualified Code(s): F32.89 - Other specified depressive episodes Code(s): F32.9 - Major depressive disorder, single episode, unspecified Status: Chronic Assessment and Plan: Stable Continue Seroquel, Zoloft and Wellbutrin (4) Hypertension: Code(s): I10 - Essential (primary) hypertension Status: Chronic Assessment and Plan: Controlled Will continue home medication, Norvasc 10 mg, carvedilol 25 mg twice daily, lisinopril 40 mg (5) Diabetic neuropathy: Code(s): E11.40 - Type 2 diabetes mellitus with diabetic neuropathy, unspecified Status: Acute Assessment and Plan: stable Diabetic diet Will adjust medication as needed Hemoglobin A1c on 01/18/2022 6.8 Continue Lyrica (6) Pneumonia: Code(s): J18.9 - Pneumonia, unspecified organism Status: Acute Assessment and Plan: CT on 01/23/2022 indicates pneumonia Continue cefdinir x7 days with repeat chest x-ray WBCs within normal limit and afebrile (7) Weakness: Code(s): R53.1 - Weakness Status: Acute Assessment and Plan: ? Exhibit tolerance during physical activity as evidenced by a normal fluctuation of vital signs during physical activity. ? Patient will be ability to perform required activities of daily living. ? Provide appropriate nutrition for healing and strength. ? Use appropriate to prevent falls. ? Continue physical therapy/occupational therapy. DS: Summary Hospital Course Reason for hospitalization: Rehab Hospital Course: This is a 76-year-old male that was admitted to [facility] on 01/17/2022 due to sepsis and pneumonia.? Patient has a past medical history of BPH, depression, type 2 diabetes, history of [place], hypertension, hypotension, insomnia, pneumonia and restless leg syndrome.? Patient admitted in swing bed for rehabilitation due to decreased balance decreased mobility in severe limited function endurant and/or mobility.? The patient denies SOB, CP, palpitation, extremity numbness, lightheadedness, dizziness, constipation, diarrhea, chills, or fever. Patient has completed rehab patient ambulating 250 feet x 2 with four-wheel walker and standby assist. Discharge instructions reviewed with patient, as well as provided in writing per nursing staff. The instructions also include specific and strict return/GO TO THE ER as well as f/u information. All questions have been answered, and the patient and/or family deny any further questions with discharge and discharge plan. Time Spent with Patient Time attestation: Total time spent providing and/or coordinating discharge services: Exam Narrative: GENERAL: This is a well-nourished, well-developed pat ient, in no appare nt distress. HEAD: normocephalic, at raumatic. EYES: PE RRL. Sclera clear/ white. Vision is g rossly intact. EAR S: External ears n ormal, auditory ca nals clear and wit hout drainage, TMs normal without pe rforation. Hearing grossly intact. N OSE: External nose normal with no ob vious nasal discha rge, nares without redness, no rhino rrhea. THROAT: Muc ous membranes mois t, posterior phary nx clear. NECK: Ne ck supple, non-ten whitley without lympha denopathy, masses or thyromegaly. CA RDIOVASCULAR: Regu lar rate
[2022-01-28 08:00] VITALS: BP 143/50; PULSE 79; RESP 18; TEMP 36.6; O2SAT 92
[2022-01-28] MEDS: busPIRone HCL 5 MG TABLET 10 MG PO (08:07)
[2022-01-28] MEDS: SERTRALINE HCL 50 MG TABLET 100 MG PO (08:07)
[2022-01-28] MEDS: lisinopriL 20 MG TABLET 40 MG PO (08:07)
[2022-01-28] MEDS: CEFDINIR 300 MG CAPSULE PO (08:07)
[2022-01-28] MEDS: carvediloL 12.5 MG TABLET 25 MG PO (08:07)
[2022-01-28] MEDS: amLODIPine BESYLATE 5 MG TABLET 10 MG PO (08:07)
[2022-01-28] MEDS: FINASTERIDE 5 MG TABLET PO (08:07)
[2022-01-28] MEDS: ATORVASTATIN 40 MG TABLET 80 MG PO (08:07)
[2022-01-28] MEDS: FUROSEMIDE 40 MG TABLET PO (08:07)
[2022-01-28] MEDS: ASPIRIN 81 MG ENTERIC TABLET PO (08:07)
[2022-01-28] MEDS: ISOSORBIDE MONONITRATE 30 MG TAB.ER.24H PO (08:07)
[2022-01-28] MEDS: PREGABALIN (*CRX) 50 MG CAPSULE 150 MG PO (08:07)
--- NOTE | 2022-01-28 08:15 | PC.NURSE ---
Pt gave bolus of 6 units based on blood sugar of 176 (pt's device) and carbs consumed with breakfast.
--- NOTE | 2022-01-31 11:02 | PC.NURSE ---
Pt states he received and understood his discharge instructions. Pt also states I had excellent care .
== END 2022-01-28 09:40 | disposition home or self-care (01) | DRG 947 ==
PROVIDERS: Nurse Practitioner; Nurse Practitioner Family; Admitting Provider Internal Medicine; PCP Family Medicine; Visit Provider Internal Medicine
DX: R53.1 Weakness (principal); J18.9 Pneumonia, unspecified organism; N40.0 Benign prostatic hyperplasia without lower urinary tract symptoms; I10 Essential (primary) hypertension; I25.2 Old myocardial infarction; E78.00 Pure hypercholesterolemia, unspecified; G47.00 Insomnia, unspecified; G25.81 Restless legs syndrome; F32.A Depression, unspecified; Z96.41 Presence of insulin pump (external) (internal); Z87.891 Personal history of nicotine dependence; Z95.5 Presence of coronary angioplasty implant and graft
CPT/HCPCS: 36415; 80048; 80053; 81001; 82010; 82947; 82948; 83880; 85027; 97110; 97162; 97165; 97530; A9270; J1815; J1940; J7030

== ENCOUNTER 2022-03-14 12:54 | Outpatient (RCR) | payer MEDICARE, SELFPAY ==
--- NOTE | 2022-03-14 14:42 | PTOPEVAL1 ---
Assessment and note entered by Briseyda Sparks DPT Evaluation Information Assessment Status Evaluation Diagnosis weakness Onset 03/09/22 Subjective Information Pt reports that his weakness has increased over the last 5 years. suggested that he come to PT to improve this. He was in the hospital for 6-7 days last month due to sepsis. He reports no significant changes due to this incident. Pt reports that he does get some headaches and neck pain. Pt lives in a home with a basement and his house is a split-level so there are multiple sets of stairs. Son-in-law put a ramp in from his garage to his home. Pt lives in his home with his who he reports is very healthy and active. Pt walks with SPC for balance especially when he is outside, does not really use at home due to furniture. Pt reports that he has unsteadiness when first standing up and using stairs. He reports that he has not had any falls. He reports no significant issues with dark environments as he brings a lot with him when getting up in the middle of the night. Pt wants to get stronger to move around better. Reported Pain Level Pain Score 5: Self Report Assessment PT Clinical Summary Pt presents to physical therapy with decreased functional strength, decreased endurance, altered gait, and impaired static and dynamic balance. These deficits make it more challenging for him to safely walk and stand up without senses of unsteadiness. He demonstrates the most difficulty with visual suppression activities, NBOS activities, and on altered surfaces. He was provided with an HEP focused on improving balance and functional strength. He will benefit from skilled PT to decrease risk for falls, improve the aforementioned impairments, and return to functional and recreational activities. Plan of Care Interventions Gait Training,Neuro Re-education,Patient/Caregiver Educati,Therapeutic Activities,Therapeutic Exercise PT Services Indicated Yes Treatment Frequency and 2x week for 8 visits Duration These treatments will address the objective and functional deficits as defined above. The patient will be advanced safely and appropriately in order for the patient to progress towards his/her prior level of function. Additional exercises will be introduced and as well as a comprehensive home exercise program upon discharg
== END 2022-04-01 13:36 | disposition home or self-care (01) ==
LOC: CHSPT 12:54
PROVIDERS: PCP Family Medicine; Visit Provider Family Medicine
DX: R53.1 Weakness (principal); A41.9 Sepsis, unspecified organism; R65.21 Severe sepsis with septic shock
CPT/HCPCS: 97110; 97112; 97161

== ENCOUNTER 2022-05-23 01:09 | Emergency (ER) | payer MEDICARE, SELFPAY ==
--- NOTE | ~2022-05-23 | XR_ITS ---
EXAMINATION: XR abdomen/kub 1V DATE: 05/23/2022 01:30 INDICATION: Constipation. TECHNIQUE: A supine view of the abdomen on 3 radiographs was obtained. COMPARISON: Abdomen radiographs 01/20/2022, CT abdomen and pelvis 01/17/2022 FINDINGS: There are no dilated loops of bowel. There is a moderate volume of stool in the colon. IMPRESSION: 1. Nonobstructive bowel gas pattern. Reviewed, dictated and finalized at location A. S SERVICE TECHNICIAN
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
[2022-05-23 01:24] VITALS: BP 188/80; PULSE 82; RESP 20; TEMP 36.1; O2SAT 100
--- NOTE | 2022-05-23 04:00 | PC.NURSE ---
Pt was given 4000ml of soap suds enema. the pt had two large bowl movements post soap suds enema. pt reports abdominal pain has resolved.
[2022-05-23 04:25] VITALS: BP 136/86; PULSE 69; RESP 20; TEMP 36.7; O2SAT 100
== END 2022-05-23 04:33 | disposition home or self-care (01) ==
PROVIDERS: Emergency Provider Emergency Medicine; PCP Family Medicine
DX: K59.00 Constipation, unspecified (principal); E11.9 Type 2 diabetes mellitus without complications; E78.00 Pure hypercholesterolemia, unspecified; I10 Essential (primary) hypertension; Z87.891 Personal history of nicotine dependence
CPT/HCPCS: 74018; 99283

== ENCOUNTER 2022-07-06 13:17 | Outpatient (CLI) | payer MEDICARE, SELFPAY ==
[2022-07-06 14:29] LABS: Alanine Aminotransferase 22 U/L (16-63); Albumin Level 2.9 g/dL (3.4-5.0); Alkaline Phosphatase 115 U/L (46-116); Anion Gap 6 mmol/L (8-16); Aspartate Amino Transferase 27 U/L (15-37); Bilirubin,Total 0.4 mg/dL (0.00-1.00); Blood Urea Nitrogen 16 mg/dL (7-18); Calcium 8.2 mg/dL (8.5-10.1); Carbon Dioxide 32 mmol/L (21-32); Chloride 103 mmol/L (98-108); Estimated Glomerular Filt Rate > 60; Glucose 188 mg/dL (70-99); Osmolality Calculated 298 mOsm/kg (285-295); Potassium 5.4 mmol/L (3.5-5.1); Prostate Specific Antigen 1.7 ng/mL (< OR = 4.0); Sodium 141 mmol/L (136-145); Total Protein 5.9 g/dL (6.4-8.2)
== END 2022-07-06 13:18 | disposition home or self-care (01) ==
LOC: CHSLAB 13:22
PROVIDERS: PCP Family Medicine; Visit Provider Urology
DX: N40.1 Benign prostatic hyperplasia with lower urinary tract symptoms (principal)
CPT/HCPCS: 36415; 80053; 84153

== ENCOUNTER 2022-07-08 16:39 | Outpatient (NON) | payer MEDICARE, SELFPAY | END 2022-07-08 16:40 | disposition home or self-care (01) | LOC: CHSLAB 16:40 | PROVIDERS: Visit Provider Urology | DX: N39.0 Urinary tract infection, site not specified (principal) | CPT/HCPCS: 87077; 87086; 87088; 87186 ==

== ENCOUNTER 2022-07-14 12:04 | Outpatient (CLI) | payer MEDICARE, SELFPAY ==
--- NOTE | ~2022-07-14 | US_ITS ---
EXAMINATION: US renal BI DATE: 07/14/2022 12:34 INDICATION: Micturition/hyperplasia TECHNIQUE: Multiple ultrasound grayscale images of the kidneys were obtained. COMPARISON: None. FINDINGS: The right kidney measures 11.8 x 5.3 x 5.9 cm. The left kidney measures 4.2 x 5.0 x 6.3 cm. The kidne ys demonstrate normal echogenicity. There is no hydronephrosis in either kidney. No stones identifie d. The bladder is normal with calculated prevoid volume of 537 mm and normal calculated post void marshall dder volume of 10 mL. IMPRESSION: 1. Normal kidneys without hydronephrosis. Reviewed, dictated and finalized at location A. PHERAL VASCULAR TECH
== END 2022-07-14 12:05 | disposition home or self-care (01) ==
LOC: CHSIMG 12:05
PROVIDERS: PCP Family Medicine; Visit Provider Urology
DX: R35.0 Frequency of micturition (principal); N40.1 Benign prostatic hyperplasia with lower urinary tract symptoms; N39.0 Urinary tract infection, site not specified
CPT/HCPCS: 76775

== ENCOUNTER 2022-09-02 14:26 | Outpatient (NON) | payer MEDICARE, SELFPAY | END 2022-09-02 14:27 | disposition home or self-care (01) | LOC: CHSLAB 14:27 | PROVIDERS: Visit Provider Urology | DX: N39.0 Urinary tract infection, site not specified (principal) | CPT/HCPCS: 87086 ==

== ENCOUNTER 2022-11-22 08:40 | Outpatient (CLI) | payer MEDICARE, SELFPAY | END 2022-11-22 08:41 | disposition home or self-care (01) | LOC: ANHBWCAUD 08:41 | PROVIDERS: PCP Family Medicine; Visit Provider Family Medicine | DX: H90.3 Sensorineural hearing loss, bilateral (principal) | CPT/HCPCS: 92557; 92567 ==

== ENCOUNTER 2023-04-28 09:56 | Outpatient (CLI) | payer MEDICARE, SELFPAY ==
[2023-04-28 11:11] LABS: Alanine Aminotransferase 22 U/L (16-63); Albumin Level 2.9 g/dL (3.4-5.0); Alkaline Phosphatase 138 U/L (46-116); Anion Gap 5 mmol/L (8-16); Aspartate Amino Transferase 37 U/L (15-37); Bilirubin,Total 0.6 mg/dL (0.00-1.00); Blood Urea Nitrogen 16 mg/dL (7-18); Calcium 8.5 mg/dL (8.5-10.1); Carbon Dioxide 30 mmol/L (21-32); Chloride 102 mmol/L (98-108); Estimated Glomerular Filt Rate > 60; Glucose 146 mg/dL (70-99); Osmolality Calculated 288 mOsm/kg (285-295); Sodium 137 mmol/L (136-145); Total Protein 6.3 g/dL (6.4-8.2)
[2023-04-28 11:24] LABS: Potassium 5.4 mmol/L (3.5-5.1)
== END 2023-04-28 09:57 | disposition home or self-care (01) ==
PROVIDERS: PCP Family Medicine; Visit Provider Urology
DX: N40.1 Benign prostatic hyperplasia with lower urinary tract symptoms (principal)
CPT/HCPCS: 36415; 80053; 84153

== ENCOUNTER 2023-11-14 10:00 | Outpatient (CLI) | payer MEDICARE, SELFPAY ==
--- NOTE | ~2023-11-14 | XR_ITS ---
XR chest 2V 11/14/2023 10:24 Indication: Productive cough. Shortness of breath. Procedure: 2 view chest Comparison: 01/23/2022 Findings: Borderline heart size. Mild diffuse interstitial infiltrates, improved since prior study. N o significant effusion. There is chronic apical pleural thickening. No pneumothorax. There are spinal stimulator leads overlying the mid thoracic spine. No acute osseous abnormality. Impression: 1: Mild diffuse interstitial infiltrates with peribronchial thickening. Differential diagnosis includ es mild chronic edema, atypical pneumonia and chronic interstitial lung disease. Reviewed, dictated and finalized at location B. Impression: 1: Mild diffuse interstitial infiltrates with peribronchial thickening. Differe ntial diagnosis includes mild chronic edema, atypical pneumonia and chronic int erstitial lung disease.
== END 2023-11-14 10:01 | disposition home or self-care (01) ==
PROVIDERS: PCP Family Medicine; Visit Provider Family Medicine
DX: R05.9 Cough, unspecified (principal); R91.8 Other nonspecific abnormal finding of lung field
CPT/HCPCS: 71046

== ENCOUNTER 2024-04-26 09:48 | Outpatient (CLI) | payer MEDICARE, SELFPAY ==
--- NOTE | ~2024-04-26 | CT_ITS ---
EXAMINATION: CT lung screening DATE: 04/26/2024 10:02 INDICATION: personal hx of nicotine dependence TECHNIQUE: Computed tomography (CT) of the chest was performed without intravenous contrast. Addition al 3D reconstructions utilizing coronal maximum intensity projection (MIP) were performed. Automated exposure control and iterative reconstruction technique were employed. The dose-length product was 32 6.10 mGy-cm. COMPARISON: 01/17/2022 FINDINGS: Again seen are bilateral peripheral and lower lung predominant irregular septal line thickening sugge stive of chronic interstitial lung disease with associated peripheral cystic lung disease which could represent associated honeycombing and/or superimposed mild emphysema. There are few bilateral small calcified pulmonary nodules along with a few calcified right hilar and mediastinal lymph nodes consis tent with old granulomatous disease. There are also a few scattered noncalcified pulmonary nodules th e 2 largest measuring 4 and 5 mm in the right middle lobe. No pleural effusion or pneumothorax. Heart size is normal. Atherosclerotic coronary artery calcifications. No pericardial effusion. Thoracic ao rta is normal in caliber. No pathologically enlarged thoracic lymphadenopathy. Visualized upper abdom en is unremarkable. Moderate to severe thoracic spondylosis. Spinal cord stimulator in the posterior central canal with distal tip at the level of T7. IMPRESSION: 1. Lung-RADS category 2: Benign appearance or behavior. Continue annual screening with noncontrast lo w-dose chest CT in 12 months. Reviewed, dictated and finalized at location B. PUTTER AWAY IMPRESSION: 1. Lung-RADS category 2: Benign appearance or behavior. Continue annual screeni ng with noncontrast low-dose chest CT in 12 months.
== END 2024-04-26 09:49 | disposition home or self-care (01) ==
PROVIDERS: PCP Family Medicine; Visit Provider Nurse Practitioner Family
DX: Z12.2 Encounter for screening for malignant neoplasm of respiratory organs (principal); Z87.891 Personal history of nicotine dependence
CPT/HCPCS: 71271

== ENCOUNTER 2024-05-17 09:30 | Outpatient (CLI) | payer MEDICARE, SELFPAY ==
[2024-05-17 10:59] LABS: Alanine Aminotransferase 19 U/L (16-63); Albumin Level 3.1 g/dL (3.4-5.0); Alkaline Phosphatase 116 U/L (46-116); Anion Gap 7 mmol/L (4-12); Aspartate Amino Transferase 20 U/L (15-37); Bilirubin,Total 0.5 mg/dL (0.00-1.00); Blood Urea Nitrogen 20 mg/dL (7-18); Calcium 9.3 mg/dL (8.5-10.1); Carbon Dioxide 30 mmol/L (21-32); Chloride 103 mmol/L (98-108); Estimated Glomerular Filt Rate > 60; Glucose 144 mg/dL (70-99); Osmolality Calculated 295 mOsm/kg (285-295); Potassium 5.2 mmol/L (3.5-5.1); Prostate Specific Antigen 0.7 ng/mL (< OR = 4.0); Sodium 140 mmol/L (136-145); Total Protein 6.1 g/dL (6.4-8.2)
== END 2024-05-17 09:31 | disposition home or self-care (01) ==
LOC: CHSLAB 09:34
PROVIDERS: PCP Family Medicine; Visit Provider Urology
DX: N40.1 Benign prostatic hyperplasia with lower urinary tract symptoms (principal)
CPT/HCPCS: 36415; 80053; 84153

== ENCOUNTER 2025-03-07 20:07 | Emergency (ER) | payer MEDICARE, SELFPAY ==
--- NOTE | ~2025-03-07 | XR_ITS ---
Examination: XR toe 1st RT min 2V Clinical History: POST REDUCTION Comparison: 2 hour prior Technique: 2 views right first toe Findings/impression: 1. Improved alignment right toe 2. However persistent mild plantar subluxation at IP joint, unclear if incompletely reduced versus just positional. 3. Small fractures along IP joint as before. Reviewed, dictated and finalized at location R.
--- NOTE | ~2025-03-07 | XR_ITS ---
[XR ribs LT 2V w CXR 2V ] INDICATION: Status post fall. Left rib pain. TECHNIQUE: Frontal projection of the upper left ribs, frontal projection of the lower left ribs, oblique projection of all the left ribs, frontal inspiratory chest x-ray for interpretation. FINDINGS: There are no displaced rib fractures identified. There are no soft tissue abnormality seen. The lungs are clear. There is patchy bilateral airspace disease, compatible with pneumonia. IMPRESSION: 1:No acute displaced rib fractures. 2: Patchy bilateral airspace disease, compatible with pneumonia. Reviewed, dictated and finalized at location O.
--- NOTE | ~2025-03-07 | XR_ITS ---
XR toe 1st RT min 2V 03/07/2025 21:36 Indication: Injury to the right first toe Procedure: 4 views right first toe Comparison: 02/16/2012 Findings: There is dislocation of the first toe at the interphalangeal joint. There are adjacent ossific fragments consistent with avulsion fractures. No significant soft tissue abnormality. Impression: 1: Dislocation of the first toe at the interphalangeal joint with associated avulsion fracture fragments. Reviewed, dictated and finalized at location O. Impression: 1: Dislocation of the first toe at the interphalangeal joint with associated av ulsion fracture fragments.
[2025-03-07 20:08] VITALS: BP 145/62; PULSE 88; RESP 20; TEMP 36.2; O2SAT 96
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
[2025-03-07 21:13] LABS: Hematocrit 36.0 % (37.0-46.0); Hemoglobin 11.5 g/dL (12.4-15.3); Immature Granulocyte Percent A 0.5 % (0.0-0.0); Lymphocytes Absolute Auto 1.82 K/mm3 (1.10-4.50); Mean Corpuscular HGB Conc 31.9 g/dL (32-36); Mean Corpuscular Hemoglobin 28.8 pg (27.0-31.0); Mean Corpuscular Volume 90.0 fL (78.0-102.0); Nucleated Red Blood Cells Absolute Auto 0.00 K/mm3 (0.00-0.00); Nucleated Red Blood Cells Perc 0.0 % (0-0.0); Platelet Count Result 216 K/mm3 (150-420); Red Blood Count 4.00 M/mm3 (4.70-6.10); White Blood Count 10.2 K/mm3 (4.8-10.8)
[2025-03-07 21:29] LABS: INR 1.0; Partial Thromboplastin Time 25.9 Sec (23.9-30.70); Prothrombin Time 10.6 Seconds (9.50-12.1)
[2025-03-07 21:32] LABS: Alanine Aminotransferase 17 U/L (6-50); Albumin Level 3.6 g/dL (3.5-5.1); Alkaline Phosphatase 99 U/L (38-126); Anion Gap 8 mmol/L (4-12); Aspartate Amino Transferase 28 U/L (17-59); Bilirubin,Total 0.5 mg/dL (0.2-1.3); Blood Urea Nitrogen 15 mg/dL (9-20); Calcium 8.7 mg/dL (8.4-10.2); Carbon Dioxide 27 mmol/L (22-30); Chloride 103 mmol/L (98-107); Estimated CRCL calculation 67 ml/min; Estimated Glomerular Filt Rate > 60; Glucose 123 mg/dL (65-110); Osmolality Calculated 287 mOsm/kg (285-295); Potassium 4.2 mmol/L (3.4-5.0); Sodium 138 mmol/L (137-145); Total Protein 6.8 g/dL (6.3-8.2)
[2025-03-07] MEDS: AZITHROMYCIN 250 MG TABLET 500 MG PO (23:06)
[2025-03-07] MEDS: cefTRIAXone 1 GM, LIDOCAINE 1% LOCAL INJ 2.1 ML IM (23:06)
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
[2025-03-07 23:46] VITALS: BP 138/60; PULSE 85; RESP 18; TEMP 36.4; O2SAT 97
--- NOTE | 2025-03-11 14:08 | PC.NURSE ---
preliminary blood cultures x2 reviewed. no growth in 24 hours
--- NOTE | 2025-03-16 01:46 | PC.NURSE ---
final blood culture reports back and show No growth in 5 days.
== END 2025-03-07 23:46 | disposition home or self-care (01) ==
PROVIDERS: Emergency Provider Emergency Medicine; PCP Family Medicine
DX: S92.421B Displaced fracture of distal phalanx of right great toe, initial encounter for open fracture (principal); E11.69 Type 2 diabetes mellitus with other specified complication; J18.9 Pneumonia, unspecified organism; I10 Essential (primary) hypertension; I25.2 Old myocardial infarction; Z87.891 Personal history of nicotine dependence; W22.8XXA Striking against or struck by other objects, initial encounter
CPT/HCPCS: 36415; 71046; 71100; 73660; 80053; 85025; 85610; 85730; 96372; 99284; A9270; J0696; J2003

== ENCOUNTER 2025-03-08 16:28 | Emergency (ER) | payer MEDICARE, SELFPAY ==
--- OUTSIDE RECORDS SUMMARY | 2011-04-21 07:30 | XMS_ITS | Continuity of Care Document ---
Author Organization [facility], L TD Address [facility] [place] [address] Phone Care Team Providers Care Director Of Social Work Name Role Phone Unavailable Unavailable Unavailable Allergies, Adverse Reactions, Alerts Substance Reaction Status Criticality No Known allergies Medications Medication Instructions Dosage Effective Dates (start - stop) Status Comments GABAPENTIN (unknown strength) Not Available - Active LORAZEPAM (unknown strength) Not Available - Active LOVASTATIN (unknown strength) Not Available - Active WELCHOL (unknown strength) Not Available - Active FLOMAX (unknown strength) Not Available - Active STANBACK ANALGESIC (unknown strength) Not Available - Active TRAZODONE HCL (unknown strength) Not Available - Active LISINOPRIL (unknown strength) Not Available - Active ATENOLOL (unknown strength) Not Available - Active CONZIP (unknown strength) Not Available - Active HYDROCHLOROTHIAZIDE (unknown strength) Not Available - Active ISOSORBIDE MONONITRATE (unknown strength) Not Available - Active INSULIN PUMP (unknown strength) Not Available - Active Procedures Procedure Date EYE EXAM ESTABLISHED PATIENT, MEDICAL No REFRACTION UPDATE Scan Image/ OCT, Glaucoma EYE EXAM ESTABLISHED PATIENT, MEDICAL No REFRACTION UPDATE ESCOBEDO VISUAL FIELD, BI-LATERAL Advance Directives Directive Yes / No Effective Date File Name No Information Encounters Encounter Description Practice Location Reason(s) For Visit Diagnoses Date Provider Providers Copied on Encounter [facility], [facility], [address] [place] [address], [id number] , tel:[phone] [facility] No Information 0-201 1 No Information [facility], [address] [place] [address], [id number] , tel:[phone] [facility] Diabetes Mellitus Type 2, UncomplicatedLens replaced by other meansMacular puckering of retina 1 No Information Referring Provider: Rinku Paz I, [address] [place] [address], [id number] . tel:[phone], [id number] , tel: [phone] [facility] No Information 1 No Information [facility], [address] [place] [address], [id number] , tel:[phone] [facility] No Information 0 Jackson Dobbs. [address] [place] [address], [id number], . tel:[phone] Referring Provider: Rinku Paz I, [address] [place] [address], [id number] . tel:[phone] Family History Family Member Type Diagnosis Age At Onset Parents Problem (finding) Heart Disease Problem (finding) No Family history of Re spiratory Disease Problem (finding) No Family history of St roke Mother Problem (finding) diabetes melli tus in first degree relative Problem (finding) No Family hist ory of Macular Degeneration Parents Problem (finding) HBP Problem (finding) No Family history of Em physema Mother Problem (finding) diabetes melli tus in first degree relative Problem (finding) No Family history of Re tinal Disorders Problem (finding) No Family history of As thma Payers Payer name Insurance type Covered alliance party ID Authoriza tion(s) Medicare [place] [id number] [facility] [id number] Social History Type Description Quantity Date Captured [...] in 6 months with [facility] fransisca r HVShira, [place] Related to ERM Diabetic Monitor OU Condition: [...]
[2025-03-08 16:29] VITALS: BP 154/75; PULSE 88; RESP 20; TEMP 36.9; O2SAT 95
--- OUTSIDE RECORDS SUMMARY | 2025-03-08 16:30 | XMS_ITS | Encounter Summary ---
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 Role Phone Eden Morrissey MD Primary Care Provider [phone] Konrad De La Torre MD Primary Care Provider Armani Skinner DO Primary Care Provider Konrad De La Torre MD Primary Care Provider Encounter Details Date Type Department Care Team (Late st Contact Info) Description 12/27/2017 Community Orders [facility] EpicCare Link Eden Morrissey MD [address] [facility] [address] [place] [address] Localized swelling, mass and lump, lower limb, left (Primary Dx); Claudication of both lower extremities; Bilateral leg pain; Left leg pain Social History Tobacco Use Types Packs/Day Years Used Date Smoking Tobacco: Former Sex and Gender Information Value Date Recorded Sex Assigned at Not on file 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 Gender Identity Male 10/21/2021 6:17 PM CDT Sexual Orientation Not on file documented as of this encounter Plan of Treatment Not on file documented as of this encounter Results * US Arterial Doppler Lower Extremity Bilateral (01/03/2018 10:22 AM CDT) Anatomical Region Laterality Modality Vascular Bilateral Ultrasound 01/03/2018 9:49 AM CDT Narrative 01/03/2018 10:23 AM CDT [facility] - Department of Vascular Surgery, Vascular Laboratory [address] [place] [address] Lower Extremity Arterial Doppler Report Patient Name: TAYLOR BARRERA T : 1945 Study Date: 01/03/2018 9:49:00 AM Gender: M Tech: Jody Loaiza RVT Location: Ref.Physician: EDEN MORRISSEY Height(Cm): BSA: Weight(Kg): Quality: Adequate Order Physician: EDEN MORRISSEY Procedures: Arterial Report: Bilateral lower extremity arterial Doppler exam at rest. Indications: Claudication of both lower extremities . Bilateral leg pain. Measurements: Right - Left - Measurement Value Normal Range Measurement Value Normal Range Rt Brachial Pressure 129 mmHg Lt Brachial Pressure 126 mmHg Rt ENGINEERING TEST SPECIALIST Pressure 110 mmHg Lt ENGINEERING TEST SPECIALIST Pressure 123 mmHg Rt DPA Pressure 109 mmHg Lt DPA Pressure 110 mmHg Rt 1st Digit Pressure 89 mmHg Lt 1st Digit Pressure 108 mmHg Rt PT MACROS Resting 0.85 Lt PT MARCOS Resting 0.95 Rt AT MARCOS Resting 0.84 Lt AT MARCOS Resting 0.85 Rt Digit/Arm Index 0.69 Lt Digit/Arm Index 0.84 Findings: Performing Health And Safety Instructor: Meri Loaiza RVT. Janette Vásquez RVT, [facility]. Bilateral All Levels : The bilateral common femoral, popliteal, posterior tibial and anterior tibial artery waveforms are multiphasic. Conclusions: The above listed right Ankle/Brachial Index at rest is consistent with moderate occlusive disease - claudication (for reference, claudication range is 0.50 -0.89). The above listed Ankle/Brachial Index at rest is within normal limits (for reference, normal resting MARCOS is 0.90 - >1.00; MARCOS >1.00 due to incompressible arteries is not diagnostic). Bilateral Digit/Arm Indices are within normal limits (for reference, normal KATHYA is >0.6). History: Not identified. Previous Studies: No previous studies for comparison. Disclaimer: The signing physician has reviewed all images pertaining to this test. These images and this report will be retained in the patient chart by the Vascular Laboratory for the legally required time period. This chart constitutes the legal record of any testing performed. Electronically Signed By: Breezy Núñez MD [facility] 2018-01-03 10:23:04 CDT CC: CC: Procedure Note Breezy Núñez MD - 01/03/2018 [facility] - Department of Vascular Surgery,Vascular Laboratory [address] [place] [address] Lower Extremity Arterial Doppler Report Patient Name: TAYLOR BARRERA TPatient ID: [id number] : [id number] Date: 01/03/2018 9:49:00 AM Gender: MAccession #: [id number] Tech: Jody Loaiza RVTLocation: Ref.Physician: Michelle MORIRSSEY(Cm): BSA: Weight(Kg): Quality: AdequateOrder Physician: EDEN MORRISSEY Procedures: Arterial Report: Bilateral lower extremity arterial Doppler exam at rest. Indications: Claudication of both lower extremities . Bilateral leg pain. Measurements: Right - Left - Measurement Value Normal Range MeasurementValue Normal Range Rt Brachial Pressure 129 mmHg Lt Brachial [id number] mmHg Rt ENGINEERING TEST SPECIALIST Pressure 110 mmHg Lt ENGINEERING TEST SPECIALIST [id number] mmHg Rt DPA Pressure 109 mmHg Lt DPA Nsbdoins804 mmHg Rt 1st Digit Pressure 89 mmHg Lt 1st Digit Hxffxfcl297 mmHg Rt PT MARCOS Resting 0.85 Lt PT MARCOS Resting0.95 Rt AT MARCOS Resting 0.84 Lt AT MARCOS Resting0.85 Rt Digit/Arm Index 0.69 Lt Digit/Arm Index0.84 Findings: Performing Health And Safety Instructor: Meri Loaiza RVT. Janette Vásquez RVT, RDMS. Bilateral All Levels : The bilateral common femoral, popliteal, posterior tibial and anteriortibial artery waveforms are multiphasic. Conclusions: The above listed right Ankle/Brachial Index at rest is consistent withmoderate occlusive disease - claudication (for reference, claudication range is 0.50-0.89). The above listed Ankle/Brachial Index at rest is within normal limits (forreference, normal resting MARCOS is 0.90 - >1.00; MARCOS >1.00 due to incompressiblearteries is not diagnostic). Bilateral Digit/Arm Indices are within normal limits (for reference,normal KATHYA is >0.6). History: Not identified. Previous Studies: No previous studies for comparison. Disclaimer: The signing physician has reviewed all images pertaining to this test.These images and this report will be retained in the patient chart by the VascularLaboratory for the legally required time period. This chart constitutes the legal record ofany testing performed. Electronically Signed By: Breezy Núñez MD [facility] 2018-01-03 10:23:04 CDT CC: CC: us Eden Morrissey MD IMG US PROCEDURES Final Result * US Vein Duplex Lower Extremity Left Limited (12/27/2017 2:45 PM CDT) Anatomical Region Laterality Modality Vascular Left Ultrasound 12/27/2017 2:30 PM CDT Narrative 12/27/2017 4:37 PM CDT [facility] - Department of Vascular Surgery, Vascular Laboratory [address] [place] [address] Lower Extremity Venous Ultrasound Report Patient Name: TAYLOR BARRERA T : 1945 (72y 3m) Study Date: 12/27/2017 2:30:57 PM Gender: M Tech: DB Location: Ref.Physician: EDEN MORRISSEY Height(Cm): BSA: Weight(Kg): Quality: Adequate Order Physician: EDEN MORRISSEY Procedures: Vascular Report: Venous Duplex imaging was performed in the left lower extremity. The common femoral, femoral, popliteal, posterior tibial, peroneal veins were evaluated for patency, spontaneity and phasicity with Doppler, compression and augmentation maneuvers. Great saphenous vein proximal at the junction was evaluated with compression maneuvers. Indications: Localized swelling, mass and lump, lower limb, left Left leg pain. Findings: Performing Health And Safety Instructor: Odalis Moncada RVT. Left: Venous Doppler signals in the left lower extremity are within normal limits for spontaneity and phasicity and respond normally to augmentation maneuvers. No evidence of deep vein thrombus by duplex, proximal to the calf. Comments: Contralateral common femoral vein is imaged for comparison and is patent. Unilateral (limited study) performed per M.D. order. Conclusions: There is no evidence of acute deep vein thrombosis on the left. Noninvasive venous studies cannot rule out isolated calf vein obstruction. History: Not identified. Previous Studies: No previous studies for comparison. Disclaimer: The signing physician has reviewed all images pertaining to this test. These images and this report will be retained in the patient chart by the Vascular Laboratory for the legally required time period. This chart constitutes the legal record of any testing performed. Electronically Signed By: Breezy Núñez MD [facility] 2017-12-27 16:37:04 CDT CC: CC: Procedure Note Breezy Núñez MD - 12/27/[address] [facility] - Department of Vascular Surgery,Vascular Laboratory [address] [place] [address] Lower Extremity Venous Ultrasound Report Patient Name: TAYLOR BARRERA TPatient ID: [id number] : 1945 (72y 3m)Study Date: 12/27/2017 2:30:57 PM Gender: MAccession #: [id number] Tech: DBLocation: Ref.Physician: EDEN MORRISSEYHeight(Cm): BSA: Weight(Kg): Quality: AdequateOrder Physician: EDEN MORRISSEY Procedures: Vascular Report: Venous Duplex imaging was performed in the left lower extremity. Thecommon femoral, femoral, popliteal, posterior tibial, peroneal veins were evaluated forpatency, spontaneity and phasicity with Doppler, compression and augmentationmaneuvers. Great saphenous vein proximal at the junction was evaluated with compressionmaneuvers. Indications: Localized swelling, mass and lump, lower limb, left Left leg pain. Findings: Performing Health And Safety Instructor: Odalis Moncada RVT. Left: Venous Doppler signals in the left lower extremity are within normallimits for spontaneity and phasicity and respond normally to augmentation maneuvers.No evidence of deep vein thrombus by duplex, proximal to the calf. Comments: Contralateral common femoral vein is imaged for comparison and is patent.Unilateral (limited study) performed per M.D. order. Conclusions: There is no evidence of acute deep vein thrombosis on the left.Noninvasive venous studies cannot rule out isolated calf vein obstruction. History: Not identified. Previous Studies: No previous studies for comparison. Disclaimer: The signing physician has reviewed all images pertaining to this test.These images and this report will be retained in the patient chart by the VascularLaboratory for the legally required time period. This chart constitutes the legal record ofany testing performed. Electronically Signed By: Breezy Núñez MD [facility] 2017-12-27 16:37:04 CDT CC: CC: Eden Morrissey MD [facility] PROCEDURES Final Result documented in this encounter Visit Diagnoses Diagnosis Localized swelling, mass and lump, lower limb, left- Primary Claudication of both lower extremities Bilateral leg pain Pain in soft tissues of limb Left leg pain Pain in soft tissues of limb Localized swelling, mass and lump, lower limb, left Left leg pain Pain in soft tissues of limb Localized swelling, mass and lump, lower limb, left Claudication of both lower extremities Bilateral leg pain Pain in soft tissues of limb documented in this encounter Care Teams 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
--- OUTSIDE RECORDS SUMMARY | 2025-03-08 16:31 | XMS_ITS | Clinical Summary ---
Author Organization [facility] Address [address] [place] [address] Care Team Providers Care Blueprint Trimmer Name Role Phone Konrad De La Torre MD Primary Care Provider Allergies No known active allergies Medications aspirin 81 mg tablet Take 1 tablet (81 mg total) by mouth daily 012 Active finasteride (PROSCAR) 5 mg tablet Take 1 tablet (5 mg total) by mouth daily Active insulin syringe-needle,d ispos. 0.5 mL 30 gauge x 5/16 syringe Inject insulin tid when insulin pump fails 200 each 1 022 Active diazePAM (VALIUM) 5 mg tablet TAKE 1 TABLET(5 MG) BY MOUTH EVERY NIGHT NEEDED FOR SLEEP 30 tablet 022 Active QUEtiapine (SEROquel) 50 mg tablet Take 1 tablet (50 mg total) by mouth nightly 90 tablet 1 023 Active carvediloL (COREG) 25 mg tablet Take 1 tablet (25 mg total) by mouth 2 (two) times a day with meals Active albuterol HFA (PROVENTIL HFA,VENTOLIN HFA,PROAIR HFA) 90 mcg/actuation inhaler Inhale 1 puff every 4 (four) hours as needed 024 Active doxycycline monohydrate (MONODOX) 100 mg capsule Take 1 capsule (100 mg total) by mouth 2 (two) times a day For 10 days, last dose on 08/22/23 024 Active predniSONE (DELTASONE) 20 mg tablet Take 2 tablets (40 mg) by mouth daily Last dose 3/4 24 02/26/2 024 Active glucagon 1 mg kitIndications:T ype 1 diabetes mellitus with hyperglycemia (HCC) Use for severe hypoglycemia 1 kit 3 024 Active lisinopriL (PRINIVIL,ZESTRI L) 10 mg tablet TAKE 1 TABLET(10 MG) BY MOUTH DAILY 90 tablet 3 024 Active insulin lispro (HumaLOG, ADMELOG) 100 unit/mL vial for injection USE DIRECTED WITH INSULIN PUMP, MAX DAILY DOSE OF 145 UNITS 130 mL 3 024 Active isosorbide mononitrate ER (IMDUR) 30 mg 24 hr tablet TAKE 1 TABLET BY MOUTH EVERY DAY 90 tablet 3 024 Active busPIRone (BUSPAR) 10 mg tablet TAKE 1 TABLET(10 MG) BY MOUTH TWICE DAILY 180 tablet 3 025 Active traZODone (DESYREL) 50 mg tablet Take 1 tablet (50 mg total) by mouth nightly 90 tablet 3 Active tamsulosin (FLOMAX) 0.4 mg extended release capsule Take 1 capsule (0.4 mg total) by mouth daily 90 capsule 3 025 Active atorvastatin (LIPITOR) 80 mg tablet Take 1 tablet (80 mg total) by mouth daily 90 tablet 3 025 Active insulin glargine 100 unit/mL (3 mL) pen for injection Inject 75 Units under the skin daily In event of pump failure 15 mL Active famotidine (PEPCID) 20 mg tablet Take 1 tablet (20 mg total) by mouth 2 (two) times a day 180 tablet 025 2025 Active cetirizine (ZyrTEC) 10 mg tablet Take 1 tablet (10 mg total) by mouth daily as needed for allergies 90 tablet 025 2025 Active clobetasoL (TEMOVATE) 0.05 % cream Apply topically 2 (two) times a day 60 g Active pregabalin (LYRICA) 150 mg capsule TAKE 1 CAPSULE(150 MG) BY MOUTH TWICE DAILY 180 capsule Active traMADoL (ULTRAM) 50 mg tablet Take 1 tablet (50 mg total) by mouth every 4 (four) hours as needed for pain 180 [address] (CYMBALTA) 60 mg capsule TAKE 1 CAPSULE(60 MG) BY MOUTH DAILY 90 capsule [address] (CYMBALTA) 60 mg capsule Take 1 capsule (60 mg total) by mouth daily 90 capsule 3 024 2024 Discontinued pregabalin (LYRICA) 150 mg capsule TAKE 1 CAPSULE(150 MG) BY MOUTH TWICE DAILY 180 capsule 025 2024 Discontinued traMADoL (ULTRAM) 50 mg tablet Take 1 tablet (50 mg total) by mouth every 4 (four) hours as needed for pain 180 tablet 025 2024 Discontinued Active Problems Problem Noted Date Diagnosed Date Dermatitis 01/01/2025 Assessment & Plan (01/01/2025 1:15 PM CDT): Clobetasol BID x 10-14d H1/H2 bo x 1 month then let me know how he is doing Incomplete bladder emptying 09/30/2024 Assessment & Plan (01/01/2025 1:14 PM CDT): PSA today Is seeing Urology 01/31 Assessment & Plan (09/30/2024 12:18 PM CDT): May be due to neuropathy and BPH. Refill tamsulosin. Offered urology referral, but patient declined. Major depressive disorder with single episode Assessment & Plan (07/04/2024 2:01 PM VENDETTE): Stop sertraline as he is already taking Cymbalta for nerve pain. Assessment & Plan (03/28/2024 12:26 PM CDT): Decrease sertraline to 50 mg daily, especially since already on Cymbalta. Lumbar radiculitis 01/31/2023 Painful diabetic neuropathy 01/03/2023 Assessment & Plan (09/30/2024 12:17 PM CDT): Due to worsening pain, will increase tramadol to 6 pills per day. Continue Cymbalta and Lyrica. Assessment & Plan (07/04/2024 2:02 PM VENDETTE): Continue current regimen. SCS is in place. Assessment & Plan (03/28/2024 12:26 PM CDT): Refill Cymbalta. Continue Lyrica. Wean tramadol to 50 mg Q6H PRN. He will follow up with Dr. Torres. Spondylosis of lumbar region without myelopathy or radiculopathy 01/03/2023 Chronic bilateral low back pain without sciatica 01/03/2023 Neuropathy 10/21/2021 Assessment & Plan (12/13/2023 1:10 PM CDT): Improved s/p SCS placement. Try to wean tramadol as able. Assessment & Plan (09/12/2023 4:08 PM CDT): Improved s/p SCS with Dr. Torres. Continue current medications. Assessment & Plan (06/14/2023 12:24 PM VENDETTE): Permanent SCS planned with Dr. Torres. Assessment & Plan (02/14/2023 11:43 AM CDT): Continue Lyrica, Cymbalta, tramadol. Follow up with Dr. Torres. Assessment & Plan (11/11/2022 12:05 PM CDT): Refractory to pregabalin, Cymbalta, tramadol. Refer to Dr. Torres for consideration of SCS. Assessment & Plan (08/09/2022 12:48 PM VENDETTE): Stable on current medications. Not interested in SCS at this time. Assessment & Plan (05/11/2022 12:58 PM VENDETTE): On tramadol and Lyrica. Add Cymbalta. We discussed possible side effects with combination of Cymbalta and sertraline (both doses are low), so he will watch out for those. If neuropathy no better, we will discuss spinal cord stimulator. Assessment & Plan (02/08/2022 12:36 PM CDT): He will take up to 8 pills of tramadol per day. Assessment & Plan (10/21/2021 9:49 PM CDT): He requires gabapentin 1600 mg TID for adequate control of his painful diabetic neuropathy. He has been on this dosage for some time. We will appeal to his insurance company. Type 1 diabetes mellitus with hyperglycemia 04/12 Assessment & Plan (01/01/2025 1:09 PM CDT): A1c 7.3% Continue CSII/CGM Basal insulin sent We discussed bolusing and just using set carb values for small/med/large meals Labs today Eye exam this past 12/30/24, diabetic eye disease stable Assessment & Plan (09/30/2024 12:17 PM CDT): A1c above goal. Tighten ICR from MN to 2PM from 10 to 9.5. Recommend routine eye exams. Monofilament exam with no ulcers today. Assessment & Plan (07/04/2024 2:01 PM VENDETTE): A1c near goal. Be sure to bolus with all carb intake. Continue routine eye and foot exams. Assessment & Plan (03/28/2024 12:25 PM CDT): A1c is very close to goal. Keep same pump settings. Eye exams are current. Assessment & Plan (12/13/2023 1:10 PM CDT): A1c improving after switch to Medtronic 780G pump. I decreased his AIT to 2 hours but otherwise kept his settings the same. I recommended that he schedule an eye exam. Assessment & Plan (09/12/2023 4:08 PM CDT): A1c above goal. I recommended that he contact [employer] to upgrade tot he 780G pump with Guardian 4 sensor so that he may avail himself of Smartguard (hybrid closed loop). He will schedule his eye exam. Assessment & Plan (06/14/2023 12:24 PM VENDETTE): A1c above goal. Increase basal rate from 8AM to midnight from 1.75 to 2 Units/hr. Upgrade Medtronic pump if able. Assessment & Plan (02/14/2023 11:43 AM CDT): A1c above goal. I increased his basal rate from 1.95 to 2.0 Units/hr from MN to 8AM and from 1.60 to 1.75 from 8AM to MN. Assessment & Plan (11/11/2022 12:05 PM CDT): A1c above goal. Increase basal from MN to 8AM from 1.85 to 1.95 Units/hr. Assessment & Plan (08/09/2022 12:48 PM VENDETTE): A1c above goal. Increased basal from MN to 8AM from 1.75 Units/hr to 1.85 Units/hr. Assessment & Plan (05/11/2022 12:57 PM VENDETTE): A1c slightly above goal. Increase overnight basal from 1.7 to 1.75 Units/hr. Assessment & Plan (02/08/2022 12:36 PM CDT): A1c near goal range, but having hyperglycemia overnight. I increased his basal from MN to 8AM from 1.6 to 1.7 Units/hr. He will continue using a 1:20 ICR but may need to tighten this as he regains weight after the hospitalization. Assessment & Plan (10/21/2021 9:48 PM CDT): A1c at goal on current therapy. Labs UTD. Had eye exam today. Assessment & Plan (07/23/2021 10:17 AM VENDETTE): A1c at goal on current therapy. Labs due today. He will schedule eye exam. Assessment & Plan (04/23/2021 1:32 PM VENDETTE): At goal on current therapy. Refer to Dr. Shah's group in ophthalmology. Labs current. Osteoarthritis 07/08/2020 Bruit of left carotid artery 10/04/2018 Coronary artery disease invo lving [place] coronary artery without angina pectoris 10/04/2018 Assessment & Plan (07/23/2021 10:17 AM VENDETTE): Will see sand drier at time of next visit with me. Essential hypertension, benign 10/04/2018 Assessment & Plan (09/30/2024 12:16 PM CDT): At goal on current therapy. Assessment & Plan (07/04/2024 2:01 PM VENDETTE): At goal on current therapy. Assessment & Plan (03/28/2024 11:38 AM CDT): At goal on current therapy. Assessment & Plan (12/13/2023 1:09 PM CDT): BP low-normal with orthostasis. Decrease lisinopril dose to 10 mg daily. Assessment & Plan (09/12/2023 4:07 PM CDT): At goal on current therapy. Assessment & Plan (06/14/2023 12:23 PM VENDETTE): Still having orthostasis and BP is low-normal. Halve carvedilol to 12.5 mg BID. Assessment & Plan (02/14/2023 11:42 AM CDT): Due to ongoing low-normal blood pressures and orthostatic symptoms, will reduce lisinopril dose to 5 mg daily. Assessment & Plan (11/11/2022 12:04 PM CDT): At goal on current therapy. Assessment & Plan (08/09/2022 12:47 PM VENDETTE): BP still low-normal and he is lightheaded. Halve dose of lisinopril to 10 mg daily. Assessment & Plan (05/11/2022 12:57 PM VENDETTE): At goal on current therapy. Assessment & Plan (02/08/2022 12:35 PM CDT): BP low with associated lightheadedness. Cut lisinopril dose in half to 20 mg daily. Assessment & Plan (10/21/2021 9:48 PM CDT): At goal on current therapy. Assessment & Plan (07/23/2021 10:16 AM VENDETTE): At goal on current therapy. Assessment & Plan (04/23/2021 1:32 PM VENDETTE): At goal on current therapy. Mixed hyperlipidemia 10/04/2018 Assessment & Plan (09/30/2024 12:16 PM CDT): At goal on current therapy. Assessment & Plan (07/04/2024 1:25 PM VENDETTE): At goal on current therapy. Assessment & Plan (03/28/2024 12:24 PM CDT): At goal on current therapy. Assessment & Plan (12/13/2023 1:09 PM CDT): Due for lipid check. He is taking atorvastatin 80 mg daily. Assessment & Plan (06/14/2023 12:23 PM VENDETTE): At goal on current therapy. Assessment & Plan (02/14/2023 11:42 AM CDT): At goal on current therapy. Assessment & Plan (11/11/2022 12:04 PM CDT): At goal on current therapy. Assessment & Plan (08/09/2022 12:47 PM VENDETTE): At goal on current therapy. Assessment & Plan (05/11/2022 12:57 PM VENDETTE): At goal on current therapy. Assessment & Plan (02/08/2022 12:35 PM CDT): At goal on current therapy. Assessment & Plan (10/21/2021 9:48 PM CDT): LDL not at goal. Increase Lipitor to 80 mg daily. Assessment & Plan (07/23/2021 10:16 AM VENDETTE): At goal on current therapy. Assessment & Plan (04/23/2021 1:33 PM VENDETTE): At goal on current therapy. Resolved Problems Problem Noted Date Diagnosed Date Resolved Date Type 1 diabetes mellitus without complication 07/08/1901/01/2025 Medicare annual wellness visit, initial 07/08/2020 01/01/2025 Encounters Date Type Department Care Team Description 01/02/2025 Results Follow-Up [facility] [address] [place] [phone] Arti Quinones, JAZZMINE Albumin Creatinine Ratio, Urine, PSA screen, Thyroid Function Wayne, Additional followed-up results: 5 01/01/2025 1:15 PM CDT Office Visit [facility] [address] [place] [phone] Arti Quinones, JAZZMINE Type 1 diabetes mellitus with hyperglycemia (HCC) (Primary Dx); Mixed hyperlipidemia; Vitamin D deficiency; Prostate cancer screening; Incomplete bladder emptying; Dermatitis from Last 3 Months Immunizations Immunization Administration Dates Next Due Influenza, Trivalent, Preservative Free, Intramu scular 06/25/2012 ZOSTER LIVE 06/25/2012 Surgical History Surgery Date Site/Laterality Comments CAROTID ENARTERECTOMYY Left HERNIA REPAIR FLUORO GUIDED ASPIRATION OR INJECTION INTERMEDIATE JOINT RIGHT 06/01/2023 Right COR[address]ARY ANGIOPLASTY WITH ST ENT PLACEMENT 06/12/2002 - 06/11/2003 CATARACT EXTRACTION Left Medical History Medical History Date Comments Hyperlipidemia Hypertension Anxiety Depression Myocardial infarction (HCC) 2002 Coronary artery disease Peripheral vascular disease BPH (benign prostatic hyperplasia) Diabetes mellitus type I Neuropathy Arthritis History of transfusion Family History Medical History Relation Name Comments Heart attack Father Family history of heart attack - (Added by TW Conv) Diabetes Mother Relation Name Status Comments Father Mother Social History Tobacco Use Types Packs/Day Years Used Date Smoking Tobacco: Former Smokeless Tobacco: Never Tobacco Cessation:Counseling Given: Not Answered AUDIT-C Answer Date Recorded Frequency of Alcohol Consumption Not on file 08/24/2023 Q2: How many drinks containi ng alcohol do you have on a typical day when you are drinking? Patient does not drink Frequency of Binge Drinking Not on file 08/10 Personal Safety Answer Date Recorded Have you ever been in or are you currently in a harmful physical or emotional relationship or is someone making you feel afraid or unsafe? Denies 08/24/2023 Sex and Gender Information Value Date Recorded Sex Assigned at Not on file Legal Sex Male 2:04 AM VENDETTE Gender Identity Male 10/21/2021 6:17 PM CDT Sexual Orientation Not on file Obstetrics History Last Filed Vital Signs Vital Sign Reading Time Taken Comments Blood Pressure 128/64 01/01/2025 12:48 PM CDT Pulse 95 01/01/2025 12:48 PM CDT Temperature 36.4 C (97.6 F) 08/24/2023 3:15 PM CDT Respiratory Rate 18 09/28/2023 9:53 AM CDT Oxygen Saturation 96% 01/01/2025 12:48 PM CDT Inhaled Oxygen Concentration - - Weight 125.2 kg (276 lb) 01/01/2025 12:48 PM CDT Height 180.3 cm (5' 11) 01/01/2025 12:48 PM CDT Body Mass Index 38.49 01/01/2025 12:48 PM CDT Plan of Treatment Health Maintenance Due Date Last Done Comments Depression Screening 1945 Foot Exam 1945 Hepatitis C Screening 1945 Dilated Eye Exam 09/21/1955 DTaP/Tdap/Td Vaccine (1 - Tdap) 1956 Hepatitis B Screening 09/21/1963 Zoster Vaccine (2 of 3) 08/20/2012 06/25/2012 Well Visit 65+ 07/08/2021 07/08/2020 Pneumococcal vaccine 65+ (2 of 2 - PPSV23, PCV20, or PCV21) 05/04/2022 03/09/2022 Fall Risk Assessment 09/27/2024 09/28/2023 Covid-19 Vaccine (6 - 2024-2 6 season) 2025 03/22/2023, 03/28/2022, 04/09/2021, Additional history exists Influenza Vaccine (#1) 2025 , 03/09/2022, 06/25/2012 Hemoglobin A1C 07/04/2025 01/01/2025, 04/2 06/2024, 07/04/2024, Additional history exists Albumin Creatinine Ratio, Urine 01/01/2026 01/01/2025, 12/13/2023, 08/09/2022, Additional history exists Lipid Panel 01/01/2026 01/01/2025, 07/0 08/2023, 08/09/2022, Additional history exists TSH Level 01/01/2026 01/01/2025, 07/0 08/2023, 08/09/2022, Additional history exists eGFR 01/01/2026 01/01/2025, 07/0 08/2023, 08/14/2023, Additional history exists Abdominal Aortic Aneurysm (A AA) Screen Completed 01/30/2018 Medical Devices Implanted Type Area Business Management Analyst Device Identifier Shelf Expiration Date Model / Serial / Lot Medtronic Inc Vectris 5mm 60cm 1x8 Electrode Mri Lead Neurostimulator [id number] - [id number] Implanted:Qty: 1 on 08/24/2023 by Dashawn Torres MD at [facility] N/A: Back Med[employer]onic Inc 08/01/2027 [id number] / / [id number] Medtronic Inc Vectris 5mm 60cm 1x8 Electrode Mri Lead Neurostimulator [id number] - [id number] Implanted:Qty: 1 on 08/24/2023 by Dashawn Torres MD at [facility] N/A: Back [employer]onic Inc 08/01/2027 [id number] / / [id number] Medtronic Inc Neurostimulator Implantable Chronic Pain 2 [id number] - [id number] - [id number] Implanted:Qty: 1 on 08/24/2023 by Dashawn Torres MD at [facility] N/A: Back Med[employer]onic Inc 06/08/2024 [id number] / [id number] / Medtronic Inc Envelope Absrb 2.7x2.5in Antibacterial Tyrx Medium Strl [id number] - [id number] Implanted:Qty: 1 on 08/24/2023 by Dashawn Torres MD at [facility] N/A: Back Med[employer]onic Inc 05/23/2024 [id number] / / [id number] Procedures Procedure Name Priority Date/Time Associated Diagnosis Comments CBC WITH AUTO DIFFERENTIAL Routine 01/01/2025 1:54 PM CDT Type 1 diabetes mellitus with hyperglycemia (HCC) COMPREHENSIVE METABOLIC PANEL Routine 01/01/2025 1:54 PM CDT Type 1 diabetes mellitus with hyperglycemia (HCC) VITAMIN D 25 HYDROXY Routine 01/01/2025 1:54 PM CDT Vitamin D deficiency THYROID FUNCTION CASCADE Routine 01/01/2025 1:54 PM CDT Type 1 diabetes mellitus with hyperglycemia (HCC) PSA SCREEN Routine 01/01/2025 1:54 PM CDT Prostate cancer screening MICROSCOPIC EXAMINATION Routine 01/01/2025 1:08 PM CDT URINALYSIS, COMPLETE W/REFLEX TO CULTURE Routine 01/01/2025 1:08 PM CDT ALBUMIN CREATININE RATIO, URINE Routine 01/01/2025 1:08 PM CDT Type 1 diabetes mellitus with hyperglycemia (HCC) POCT LIPID PANEL Routine 01/01/2025 12:50 PM CDT Type 1 diabetes mellitus with hyperglycemia (HCC) Mixed hyperlipidemia POCT HEMOGLOBIN A1C Routine 01/01/2025 12:50 PM CDT Type 1 diabetes mellitus with hyperglycemia (HCC) Mixed hyperlipidemia POCT GLUCOSE 73534 Routine 01/01/2025 12:50 PM CDT Type 1 diabetes mellitus with hyperglycemia (HCC) Mixed hyperlipidemia CT ABDOMEN PELVIS W CONTRAST Schedule Routine, Read Routine (OP Routine) 01/30/2018 10:51 AM CDT Leg swelling from Last 3 Months or Most Recently Relevant to Health Maintenance Results * Thyroid Function [place] (01/01/2025 1:54 PM CDT) TSH 1.680 0.450 - 4.500 uIU/mL [facility] - 01 Comment: No apparent thyroid disorder. Additional testing not indicated. In rare instances, Secondary Hypothyroidism as well as Subclinical Hypothyroidism have been reported in some patients with normal TSH values. Blood 01/01/2025 1:54 PM CDT 01/01/2025 Narrative [facility] - 01/02/2025 12:10 PM CDT Performed at: [address] [place] [id number] Gasoline Pump Mechanic: Chaka Hu PhD, Phone: [phone] Arti Quinones NP LAB BLOOD ORDERABLES [facility] al Result [facility] - 01 * PSA screen (01/01/2025 1:54 PM CDT) Pathologist [facility] PSA 0.5 0.0 - 4.0 ng/mL [facility] - 01 Comment: [place] ECLIA methodology. According to the [place] [employer], Serum PSA should decrease and remain at undetectable levels after radical prostatectomy. The AUA defines biochemical recurrence as an initial PSA value 0.2 ng/mL or greater followed by a subsequent confirmatory PSA value 0.2 ng/mL or greater. Values obtained with different assay methods or kits cannot be used interchangeably. Results cannot be interpreted as absolute evidence of the presence or absence of malignant disease. Blood 01/01/2025 1:54 PM CDT 01/01/2025 Narrative [facility] - 01/02/2025 12:10 PM CDT Performed at: 01 - [facility], [place], [place] [id number] Gasoline Pump Mechanic: Chaka Hu PhD, Phone: [phone] us Arti Quinones SYSTEM TECHNOLOGIST LAB BLOOD ORDERABLES Fin al Result [facility] - 01 * (ABNORMAL) CBC with auto differential (01/01/2025 1:54 PM CDT) [facility] WBC 12.0(H) 3.4 - 10.8 x10E3/uL [facility] - 01 RBC 4.72 4.14 - 5.80 x10E6/uL [facility] - 01 Hgb 13.5 13.0 - 17.7 g/dL [facility] - 01 Hct 42.7 37.5 - 51.0 % [facility] - 01 MCV 91 79 - 97 fL [facility] - 01 MCH 28.6 26.6 - 33.0 pg [facility] - 01 MCHC 31.6 31.5 - 35.7 g/dL [facility] - 01 Rdw 13.3 11.6 - 15.4 % [facility] - 01 Platelets 256 150 - 450 x10E3/uL [facility] - 01 Neutrophils pct 60 Not Estab. % [facility] - 01 Lymphs pct 25 Not Estab. % [facility] - 01 Monocytes pct 10 Not Estab. % [facility] - 01 Eosinophils pct 4 Not Estab. % [facility] - 01 Basophil pct 1 Not Estab. % [facility] - 01 Neutrophil abs 7.2(H) 1.4 - 7.0 x10E3/uL [facility] - 01 Lymphs (Absolute) 3.0 0.7 - 3.1 x10E3/uL [facility] - 01 Monocyte abs 1.2(H) 0.1 - 0.9 x10E3/uL [facility] - 01 Eosinophils, abs 0.5(H) 0.0 - 0.4 x10E3/uL [facility] - 01 Basophils, abs 0.1 0.0 - 0.2 x10E3/uL [facility] - 01 Immature Granulocytes 0 Not Estab. % [facility] - 01 Immature Grans (Abs) 0.0 0.0 - 0.1 x10E3/uL [facility] - 01 Blood 01/01/2025 1:54 PM CDT 01/01/2025 Narrative [facility] - 01/02/2025 5:36 AM CDT Performed at: [address] [place] [id number] Gasoline Pump Mechanic: Chaka Hu PhD, Phone: [phone] Arti Quinones SYSTEM TECHNOLOGIST LAB BLOOD ORDERABLES Fin al Result Performing Organization Address [facility] Co de Phone Number [facility] - 01 * (ABNORMAL) Vitamin D 25 hydroxy (01/01/2025 1:54 PM CDT) Pathologist [facility] Vitamin D, 25-Hydroxy 25.3(L) 30.0 - 100.0 ng/mL [facility] - Comment: Vitamin D deficiency has been defined by the [place] of [employer] and an Endocrine Society practice guideline as a level of serum 25-OH vitamin D less than 20 ng/mL (1,2). The Endocrine Society went on to further define vitamin D insufficiency as a level between 21 and 29 ng/mL (2). 1. IOM ([place] of [employer]). 2010. Dietary reference intakes for calcium and D. [place]: The National Academies Press. 2. [place] TAI, Barb MACIAS, Ethel FONTENOT, et al. Evaluation, treatment, and prevention of vitamin D deficiency: an Endocrine Society clinical practice guideline. JCEM. 2010; 96(7):1911-30. Blood 01/01/2025 1:54 PM CDT 01/01/2025 Narrative [facility] - 01/02/2025 9:36 AM CDT Performed at: [address] [id number] Gasoline Pump Mechanic: Chaka Hu PhD, Phone: [phone] Arti Quinones SYSTEM TECHNOLOGIST LAB BLOOD ORDERABLES Fin al Result Performing Organization Address City/[facility]/ZIP Co de Phone Number [facility] - 01 * Comprehensive metabolic panel (01/01/2025 1:54 PM CDT) Pathologist [facility] Glucose 73 70 - 99 mg/dL [facility] - 01 BUN 13 8 - 27 mg/dL [facility] - 01 Creatinine, Serum 0.91 0.76 - 1.27 mg/dL [facility] - 01 eGFR 86 >59 mL/min/1.73 [facility] - 01 BUN/creat ratio 14 10 - 24 [facility] - 01 Sodium 141 134 - 144 mmol/L [facility] - 01 Potassium, sr 5.1 3.5 - 5.2 mmol/L [facility] - 01 Chloride 102 96 - 106 mmol/L [facility] - 01 CO2 23 20 - 29 mmol/L [facility] - 01 Calcium 9.5 8.6 - 10.2 mg/dL [facility] - 01 Protein, sr 6.3 6.0 - 8.5 g/dL [facility] - 01 Albumin 3.8 3.8 - 4.8 g/dL [facility] - 01 Globulin, Total 2.5 1.5 - 4.5 g/dL [facility] - 01 Bilirubin, Total 0.3 0.0 - 1.2 mg/dL [facility] - 01 Alk phos 113 44 - 121 IU/L [facility] - 01 AST 19 0 - 40 IU/L [facility] - 01 ALT 13 0 - 44 IU/L [facility] - 01 Blood 01/01/2025 1:54 PM CDT 01/01/2025 Narrative [facility] - 01/02/2025 11:11 AM CDT Performed at: - [facility] [id number] Gasoline Pump Mechanic: Chaka Hu PhD, Phone: [phone] us Arti Quinones SYSTEM TECHNOLOGIST LAB BLOOD ORDERABLES Fin al Result [facility] - 01 * URINALYSIS, COMPLETE W/REFLEX TO CULTURE (01/01/2025 1:08 PM CDT) [facility] Specific [place] 1.022 1.005 - 1.030 [facility] - 01 pH, ur 6.5 5.0 - 7.5 [facility] - 01 Color, ur Yellow Yellow [facility] - 01 Appearance, ur Clear Clear [facility] - 01 Leukocyte esterase, ur Negative Negative [facility] - 01 Protein, ur Trace Negative/Tra ce [facility] - 01 Glucose, ur Negative Negative [facility] - 01 Ketones, ur Negative Negative [facility] - 01 Blood, ur Negative Negative [facility] - 01 Bilirubin, ur Negative Negative [facility] - 01 Urobilinogen, quant, ur 0.2 0.2 - 1.0 mg/dL [facility] - 01 Nitrites, ur Negative Negative [facility] - 01 Urinalysis, microscopic exam Comment [facility] - 01 Comment:Microscopic follows if indicated. Urinalysis, microscopic exam See below: [facility] - 01 Comment:Microscopic was ephraim cated and was performed. Urinalysis Reflex Comment [facility] - 01 Comment:This specimen will n ot reflex to a Urine Culture. 01/01/2025 1:08 PM CDT 01/01/2025 Narrative [facility] - 01/02/2025 6:36 AM CDT Performed at: [address] [id number] Gasoline Pump Mechanic: Chaka Hu PhD, Phone: [phone] us Arti Quinones SYSTEM TECHNOLOGIST LAB URINE ORDERABLES Fin al Result [facility] - 01 * Microscopic Examination (01/01/2025 1:08 PM CDT) WBC, ur None seen 0 - 5 /hpf [facility] - 01 RBC, ur 0-2 0 - 2 /hpf [facility] - 01 Epithelial cells, non-renal, ur 0-10 0 - 10 /hpf [facility] - 01 Casts None seen None seen /lpf [facility] - 01 Bacteria, ur None seen None seen/Few [facility] - 01 01/01/2025 1:08 PM CDT 01/01/2025 Narrative [facility] - 01/02/2025 6:36 AM CDT Performed at: [address] [id number] Gasoline Pump Mechanic: Chaka Hu PhD, Phone: [phone] Arti Quinones SYSTEM TECHNOLOGIST LAB BLOOD ORDERABLES Fin al Result Performing Organization Address [facility] Co de Phone Number [facility] - 01 * Albumin Creatinine Ratio, Urine (01/01/2025 1:08 PM CDT) Creatinine ur 149.5 Not Estab. mg/dL [facility] - 01 Microalbumin, ur 43.0 Not Estab. ug/mL [facility] - 01 Microalbumin/cre at ratio 29 0 - 29 mg/g creat [facility] - 01 Comment: Normal: 0 - 29 Moderately increased: 30 - 300 Severely increased: >300 Urine 01/01/2025 1:08 PM CDT 01/01/2025 Narrative [facility] - 01/02/2025 12:36 PM CDT Performed at: [address] [id number] Gasoline Pump Mechanic: Chaka Hu PhD, Phone: [phone] Result [facility] Arti Quinones SYSTEM TECHNOLOGIST LAB URINE ORDERABLES Fin al Result Performing Organization Address [facility] Co de Phone Number [facility] - 01 * POCT glucose (01/01/2025 12:50 PM CDT) Pathologist [facility] Glucose Blood, POC 202 Normal Fasting 70 - 100, Random <200 mg/dL Blood 01/01/2025 12:5 0 PM CDT Arti Quinones NP POINT OF CARE TEST ORDER CAROL ANN Final Result * (ABNORMAL) POCT hemoglobin A1c (01/01/2025 12:50 PM CDT) Hemoglobin A1C, POC 7.3(A) 4.0 - 5.6 % Blood 01/01/2025 12:5 0 PM CDT Arti Quinones SYSTEM TECHNOLOGIST POINT OF CARE TEST ORDER CAROL ANN Final Result * (ABNORMAL) POCT lipid panel (01/01/2025 12:50 PM CDT) HDL, POC 33(A) >=40 mg/dL Triglycerides, POC 171(A) <=149 mg/dL LDL Cholesterol POC 45 <=129 mg/dL Chol/HDL Ratio, POC 3.4 NONE Non-HDL Cholesterol, POC 79 NONE mg/dL Cholesterol Total, POC 112 30 - 199 mg/dL Capillary blood 01/01/2025 1 2:50 PM CDT Arti Quinones NP POINT OF CARE TEST ORDER CAROL ANN Final Result * CT Abdomen Pelvis W Contrast (01/30/2018 10:51 AM CDT) Anatomical Region Laterality Modality Body N/A Computed Tomogra phy 01/30/2018 11:0 8 AM CDT Impressions 01/30/2018 11:08 AM CDT 1. No acute abnormality to explain the patient's symptoms. Normal caliber IVC without compression or mass effect on the pelvic venous system. 2. Noncalcified 6 mm right middle lobe pulmonary nodule. Per 2017 Fleischner Criteria, recommend follow-up CT chest in 12 months to demonstrate stability. 3. Enlarged appendix without periappendiceal fat stranding or drainable fluid collection. This likely represents patient's normal, however, cannot exclude early appendicitis. Recommend correlation with symptoms of early appendicitis. Electronically signed by: Joe Wade M.D. Narrative 01/30/2018 11:08 AM CDT EXAMINATION: Computed tomography of the abdomen and pelvis with intravenous contrast HISTORY: 72-year-old with left lower extremity swelling from the level of the mid thigh to the ankle for approximately 2 months. TECHNIQUE: Transaxial computed tomographic images of the abdomen and pelvis were obtained with intravenous contrast according to the IVC venogram protocol after the uneventful administration of 125 mL Opti-Ray 350 intravenous contrast. COMPARISON: None. FINDINGS: Visualized portions of lung bases demonstrate mild dependent bibasilar atelectasis. Scattered calcified granulomas. Calcified subcarinal and right hilar lymph nodes. There is a 0.6 x 0.5 cm noncalcified pulmonary nodule in the anterior right middle lobe on image 14, series 2. Coronary artery calcification is present. No pericardial or pleural effusion. Normal size and contour of the liver without focal hepatic lesion. The spleen, adrenal glands, and gallbladder are normal. Fatty atrophy of the pancreas. Left interpolar renal cyst measuring 1.3 x 0.9 cm. Normal right kidney. No hydronephrosis, renal or ureteral calculi. Nonaneurysmal abdominal aorta with moderate scattered aortoiliac calcifications. Aortic origin of the splenic artery. There are 2 renal arteries supplying the right kidney. Normal caliber IVC without compression or mass effect on the pelvic venous system. No retroperitoneal or mesenteric adenopathy. No free air or free fluid. The stomach, small bowel and colon are normal. Enlarged appendix measuring up to 1.2 cm greatest axial dimension without adjacent periappendiceal fat stranding or drainable fluid collection. The prostate and bladder are normal. No pelvic mass. Visualized portions of the bilateral lower extremities demonstrate no significant asymmetric soft tissue edema or fat stranding. Moderate multilevel spondylosis. No destructive osseous lesions. Procedure Note Joe Wade MD - 01/30/2018 EXAMINATION: Computed tomography of the abdomen and pelvis with intravenous contrast HISTORY: 72-year-old with left lower extremity swelling from the level of the mid thigh to the ankle for approximately 2 months. TECHNIQUE: Transaxial computed tomographic images of the abdomen and pelvis were obtained with intravenous contrast according to the IVC venogram protocol after the uneventful administration of 125 mL Opti-Ray 350 intravenous contrast. COMPARISON: None. FINDINGS: Visualized portions of lung bases demonstrate mild dependent bibasilar atelectasis. Scattered calcified granulomas. Calcified subcarinal and right hilar lymph nodes. There is a 0.6 x 0.5 cm noncalcified pulmonary nodule in the anterior right middle lobe on image 14, series 2. Coronary artery calcification is present. No pericardial or pleural effusion. Normal size and contour of the liver without focal hepatic lesion. The spleen, adrenal glands, and gallbladder are normal. Fatty atrophy of the pancreas. Left interpolar renal cyst measuring 1.3 x 0.9 cm. Normal right kidney. No hydronephrosis, renal or ureteral calculi. Nonaneurysmal abdominal aorta with moderate scattered aortoiliac calcifications. Aortic origin of the splenic artery. There are 2 renal arteries supplying the right kidney. Normal caliber IVC without compression or mass effect on the pelvic venous system. No retroperitoneal or mesenteric adenopathy. No free air or free fluid. The stomach, small bowel and colon are normal. Enlarged appendix measuring up to 1.2 cm greatest axial dimension without adjacent periappendiceal fat stranding or drainable fluid collection. The prostate and bladder are normal. No pelvic mass. Visualized portions of the bilateral lower extremities demonstrate no significant asymmetric soft tissue edema or fat stranding. Moderate multilevel spondylosis. No destructive osseous lesions. IMPRESSION: 1. No acute abnormality to explain the patient's symptoms. Normal caliber IVC without compression or mass effect on the pelvic venous system. 2. Noncalcified 6 mm right middle lobe pulmonary nodule. Per 2017 Fleischner Criteria, recommend follow-up CT chest in 12 months to demonstrate stability. 3. Enlarged appendix without periappendiceal fat stranding or drainable fluid collection. This likely represents patient's normal, however, cannot exclude early appendicitis. Recommend correlation with symptoms of early appendicitis. Electronically signed by: Joe Wade M.D. Andres Razo MD IMG CT PROCEDURES Final Result from Last 3 Months or Most Recently Relevant to Health Maintenance Insurance [facility]IC[facility] MEDICARE MEDICARE BLUE CROSS MEDICARE SUPPLEMENT MEDICARE [facility] MEDICARE Care Teams Blueprint Trimmer Relationship Specialty Start Date End Date Konrad De La Torre MD PCP - General Endocrinology Diabetes & Metabolism 03/21/22
--- OUTSIDE RECORDS SUMMARY | 2025-03-08 16:31 | XMS_ITS | Encounter Summary ---
Author Organization [facility] Address [address] [place] [address] Phone Care Team Providers Care Microbiology Technologist Name Role Phone Sigifredo Segovia MD Primary Care Provider [phone] Konrad De La Torre MD Primary Care Provider Armani Skinner DO Primary Care Provider Konrad De La Torre MD Primary Care Provider Encounter Details Date Type Department Care Team (Latest Contact Info) Description 01/27/2017 Orders Only [facility] CONVERSION Scanning, Provider Social History Tobacco Use Types Packs/Day Years Used Date Smoking Tobacco: Former Sex and Gender Information Value Date Recorded Sex Assigned at Not on file 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 Gender Identity Male 10/21/2021 6:17 PM CDT Sexual Orientation Not on file documented as of this encounter Plan of Treatment Not on file documented as of this encounter Procedures Procedure Name Priority Date/Time Associated Diagnosis Comments PULMONARY FUNCTION TEST (PFT) 01/27/2017 12:38 PM CDT documented in this encounter Results * PULMONARY FUNCTION TEST (PFT) (01/27/2017 12:38 PM CDT) Anatomical Region Laterality Modality PFT us Provider Scanning PFT ORDERABLES Final Result documented in this encounter Visit Diagnoses Not on filedocumented in this encounter Care Teams Microbiology Technologist Relationship Specialty Start Date End Date Sigifredo Segovia MD [address] [address] PCP - General 10/17/16 04/20/21 Konrad De La Torre MD [address] [address] PCP - General Endocrinology Diabetes & Metabolism 04/21/21 02/07/22 Armani Skinner DO [address] [place] [address] PCP - General Family Medicine 02/08/22 03/20/22 Konrad De La Torre MD [address] [address] PCP - General Endocrinology Diabetes & Metabolism 03/21/22 documented as of this encounter
--- OUTSIDE RECORDS SUMMARY | 2025-03-08 17:18 | XMS_ITS | Clinical Summary ---
Author Organization [facility] Address [address] [place] [address] Care Team Providers Care Presser Cotton Ginning Name Role Phone Konrad De La Torre [...] episode Assessment & Plan (07/04/2024 2:01 PM ALUMNAE SECRETARY): Stop sertraline as he is already taking [...] Lyrica. Assessment & Plan (07/04/2024 2:02 PM ALUMNAE SECRETARY): Continue current regimen. SCS is in place. [...] medications. Assessment & Plan (06/14/2023 12:24 PM ALUMNAE SECRETARY): Permanent SCS planned with Dr. Torres. Assessment & Plan (02/14/2023 11:43 AM CDT): Continue Lyrica, Cymbalta, tramadol. Follow up with Dr. Torres. Assessment & Plan (11/11/2022 12:05 PM CDT): Refractory to pregabalin, Cymbalta, tramadol. Refer to Dr. Torres for consideration of SCS. Assessment & Plan (08/09/2022 12:48 PM ALUMNAE SECRETARY): Stable on current medications. Not interested in SCS at this time. Assessment & Plan (05/11/2022 12:58 PM ALUMNAE SECRETARY): On tramadol and Lyrica. Add Cymbalta. We [...] today. Assessment & Plan (07/04/2024 2:01 PM ALUMNAE SECRETARY): A1c near goal. Be sure to bolus [...] above goal. I recommended that he contact [employer] to upgrade tot he 780G pump with Guardian 4 sensor so that he may avail himself of Smartguard (hybrid closed loop). He will schedule his eye exam. Assessment & Plan (06/14/2023 12:24 PM ALUMNAE SECRETARY): A1c above goal. Increase basal rate from [...] Units/hr. Assessment & Plan (08/09/2022 12:48 PM ALUMNAE SECRETARY): A1c above goal. Increased basal from MN to 8AM from 1.75 Units/hr to 1.85 Units/hr. Assessment & Plan (05/11/2022 12:57 PM ALUMNAE SECRETARY): A1c slightly above goal. Increase overnight basal [...] today. Assessment & Plan (07/23/2021 10:17 AM ALUMNAE SECRETARY): A1c at goal on current therapy. Labs due today. He will schedule eye exam. Assessment & Plan (04/23/2021 1:32 PM ALUMNAE SECRETARY): At goal on current therapy. Refer to Dr. Shah's group in ophthalmology. Labs current. 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 Essential hypertension, benign 10/04/2018 Assessment & Plan (09/30/2024 12:16 PM CDT): At goal on current therapy. Assessment & Plan (07/04/2024 2:01 PM ALUMNAE SECRETARY): At goal on current therapy. Assessment & Plan (03/28/2024 11:38 AM CDT): At goal on current therapy. Assessment & Plan (12/13/2023 1:09 PM CDT): BP low-normal with orthostasis. Decrease lisinopril dose to 10 mg daily. Assessment & Plan (09/12/2023 4:07 PM CDT): At goal on current therapy. Assessment & Plan (06/14/2023 12:23 PM ALUMNAE SECRETARY): Still having orthostasis and BP is low-normal. Halve carvedilol to 12.5 mg BID. Assessment & Plan (02/14/2023 11:42 AM CDT): Due to ongoing low-normal blood pressures and orthostatic symptoms, will reduce lisinopril dose to 5 mg daily. Assessment & Plan (11/11/2022 12:04 PM CDT): At goal on current therapy. Assessment & Plan (08/09/2022 12:47 PM ALUMNAE SECRETARY): BP still low-normal and he is lightheaded. Halve dose of lisinopril to 10 mg daily. Assessment & Plan (05/11/2022 12:57 PM ALUMNAE SECRETARY): At goal on current therapy. Assessment & Plan (02/08/2022 12:35 PM CDT): BP low with associated lightheadedness. Cut lisinopril dose in half to 20 mg daily. Assessment & Plan (10/21/2021 9:48 PM CDT): At goal on current therapy. Assessment & Plan (07/23/2021 10:16 AM ALUMNAE SECRETARY): At goal on current therapy. Assessment & Plan (04/23/2021 1:32 PM ALUMNAE SECRETARY): At goal on current therapy. Mixed hyperlipidemia 10/04/2018 Assessment & Plan (09/30/2024 12:16 PM CDT): At goal on current therapy. Assessment & Plan (07/04/2024 1:25 PM ALUMNAE SECRETARY): At goal on current therapy. Assessment & Plan (03/28/2024 12:24 PM CDT): At goal on current therapy. Assessment & Plan (12/13/2023 1:09 PM CDT): Due for lipid check. He is taking atorvastatin 80 mg daily. Assessment & Plan (06/14/2023 12:23 PM ALUMNAE SECRETARY): At goal on current therapy. Assessment & Plan (02/14/2023 11:42 AM CDT): At goal on current therapy. Assessment & Plan (11/11/2022 12:04 PM CDT): At goal on current therapy. Assessment & Plan (08/09/2022 12:47 PM ALUMNAE SECRETARY): At goal on current therapy. Assessment & Plan (05/11/2022 12:57 PM ALUMNAE SECRETARY): At goal on current therapy. Assessment & Plan (02/08/2022 12:35 PM CDT): At goal on current therapy. Assessment & Plan (10/21/2021 9:48 PM CDT): LDL not at goal. Increase Lipitor to 80 mg daily. Assessment & Plan (07/23/2021 10:16 AM ALUMNAE SECRETARY): At goal on current therapy. Assessment & Plan (04/23/2021 1:33 PM ALUMNAE SECRETARY): At goal on current therapy. Resolved Problems Problem Noted Date Diagnosed Date Resolved Date Type 1 diabetes mellitus without complication 07/08/1901/01/2025 Medicare annual wellness visit, initial 07/08/2020 01/01/2025 Encounters Date Type Department Care Team Description 01/02/2025 Results Follow-Up [facility] [address] [place] [phone] Arti Quinones, JAZZMINE Albumin Creatinine Ratio, Urine, PSA screen, Thyroid Function [place], Additional followed-up results: 5 01/01/2025 1:15 PM CDT Office Visit [facility] [address] [place] [phone] Arti Quinones, JAZZMINE Type 1 diabetes mellitus [...] on file Legal Sex Male 2:04 AM ALUMNAE SECRETARY Gender Identity Male 10/21/2021 6:17 PM CDT [...] Completed 01/30/2018 Medical Devices Implanted Type Area Refueler Device Identifier Shelf Expiration Date Model / Serial / Lot [employer] Vectris 5mm 60cm 1x8 Electrode Mri Lead Neurostimulator [id number] - [id number] Implanted:Qty: 1 on 08/24/2023 by Dashawn Torres MD at [facility] N/A: Back [employer] 08/01/2027 [id number] / / [id number] [employer] Vectris 5mm 60cm 1x8 Electrode Mri Lead Neurostimulator [id number] - [id number] Implanted:Qty: 1 on 08/24/2023 by Dashawn Torres MD at [facility] N/A: Back [employer] 08/01/2027 [id number] / / [id number] [employer] Neurostimulator Implantable Chronic Pain 2 [id number] - [id number] - [id number] Implanted:Qty: 1 on 08/24/2023 by Dashawn Torres MD at [facility] N/A: Back [employer] 06/08/2024 [id number] / [id number] / [employer] Envelope Absrb 2.7x2.5in Antibacterial Tyrx Medium Strl [id number] - [id number] Implanted:Qty: 1 on 08/24/2023 by Dashawn Torres MD at [facility] N/A: Back [employer] 05/23/2024 [id number] / / [id number] Procedures Procedure Name Priority Date/Time Associated Diagnosis [...] with hyperglycemia (HCC) Mixed hyperlipidemia POCT GLUCOSE 25562 Routine 01/01/2025 12:50 PM CDT Type 1 diabetes mellitus with hyperglycemia (HCC) Mixed hyperlipidemia CT ABDOMEN PELVIS W CONTRAST Schedule Routine, Read Routine (OP Routine) 01/30/2018 10:51 AM CDT Leg swelling from Last 3 Months or Most Recently Relevant to Health Maintenance Results * Thyroid Function [place] (01/01/2025 1:54 PM CDT) TSH 1.680 0.450 - 4.500 uIU/mL [facility] - 01 Comment: No apparent thyroid disorder. Additional testing not indicated. In rare instances, Secondary Hypothyroidism as well as Subclinical Hypothyroidism have been reported in some patients with normal TSH values. Blood 01/01/2025 1:54 PM CDT 01/01/2025 Narrative [facility] - 01/02/2025 12:10 PM CDT Performed at: [address] [place] [id number] Health Technician Hearing: Chaka Hu PhD, Phone: [phone] Arti Quinones NP LAB BLOOD ORDERABLES [facility] al [facility] - 01 * PSA screen (01/01/2025 1:54 PM CDT) Pathologist [facility] PSA 0.5 0.0 - 4.0 ng/mL [facility] - 01 Comment: Padmaja ECLIA methodology. According to the [place] U[employer] Association, Serum PSA should decrease and [...] 12:10 PM CDT Performed at: 01 - [facility], [place], [place] [id number] Health Technician Hearing: Chaka Hu PhD, Phone: [phone] us Arti Quinones NETWORK ENGINEER ADMINISTRATOR LAB BLOOD ORDERABLES Fin al Result [facility] - 01 * (ABNORMAL) CBC with auto differential (01/01/2025 1:54 PM CDT) [facility] WBC 12.0(H) 3.4 - 10.8 x10E3/uL [facility] [...] - 01/02/2025 5:36 AM CDT Performed at: [address] [place] [id number] Health Technician Hearing: Chaka Hu PhD, Phone: [phone] Arti Quinones NETWORK ENGINEER ADMINISTRATOR LAB BLOOD ORDERABLES Fin al Result Performing Organization Address [facility] Co de Phone Number [facility] - 01 * (ABNORMAL) Vitamin D 25 hydroxy (01/01/2025 1:54 PM CDT) Pathologist [facility] Vitamin D, 25-Hydroxy 25.3(L) 30.0 - 100.0 ng/mL [facility] - Comment: Vitamin D deficiency has been defined by the [place] of Medicine and an Endocrine Society practice guideline as a level of serum 25-OH vitamin D less than 20 ng/mL (1,2). The Endocrine Society went on to further define vitamin D insufficiency as a level between 21 and 29 ng/mL (2). 1. IOM ([place] of Medicine). 2010. Dietary reference intakes for calcium and D. [place]: The National Academies Press. 2. Colton TAI, Barb MACIAS, Ethel FONTENOT, et al. Evaluation, treatment, and prevention of vitamin D deficiency: an Endocrine Society clinical practice guideline. JCEM. 2010; 96(7):1911-30. Blood 01/01/2025 1:54 PM CDT 01/01/2025 Narrative [facility] - 01/02/2025 9:36 AM CDT Performed at: [address] [id number] Health Technician Hearing: Chaka Hu PhD, Phone: [phone] Arti Quinones NETWORK ENGINEER ADMINISTRATOR LAB BLOOD ORDERABLES Fin al Result Performing Organization Address City/[facility]/ZIP Co de Phone Number [facility] - 01 * Comprehensive metabolic panel (01/01/2025 1:54 PM CDT) Pathologist [facility] Glucose 73 70 - 99 mg/dL [facility] [...] 01/02/2025 11:11 AM CDT Performed at: - [facility] [id number] Health Technician Hearing: Chaka Hu PhD, Phone: [phone] us Arti Quinones NETWORK ENGINEER ADMINISTRATOR LAB BLOOD ORDERABLES Fin al Result [facility] 01 * URINALYSIS, COMPLETE W/REFLEX TO CULTURE (01/01/2025 1:08 PM CDT) [facility] Specific Mercedes 1.022 1.005 - 1.030 [facility] - 01 [...] - 01/02/2025 6:36 AM CDT Performed at: [address] [id number] Health Technician Hearing: Chaka Hu PhD, Phone: [phone] us Arti Quinones NETWORK ENGINEER ADMINISTRATOR LAB URINE ORDERABLES Fin al Result [facility] [...] - 01/02/2025 6:36 AM CDT Performed at: [address] [id number] Health Technician Hearing: Chaka Hu PhD, Phone: [phone] Arti Quinones NETWORK ENGINEER ADMINISTRATOR LAB BLOOD ORDERABLES Fin al Result Performing Organization Address [facility] Co de Phone Number [facility] - 01 * Albumin Creatinine Ratio, [...] - 01/02/2025 12:36 PM CDT Performed at: [address] [id number] Health Technician Hearing: Chaka Hu PhD, Phone: [phone] Result [facility] Arti Quinones NETWORK ENGINEER ADMINISTRATOR LAB URINE ORDERABLES Fin al Result Performing Organization Address [facility] Co de Phone Number [facility] - 01 * POCT glucose (01/01/2025 12:50 PM CDT) Pathologist [facility] Glucose Blood, POC 202 Normal Fasting 70 - 100, Random <200 mg/dL Blood 01/01/2025 12:5 0 PM CDT Arti Quinones NP POINT OF CARE TEST ORDER CAROL ANN Final Result * (ABNORMAL) POCT hemoglobin A1c (01/01/2025 12:50 PM CDT) Hemoglobin A1C, POC 7.3(A) 4.0 - 5.6 % Blood 01/01/2025 12:5 0 PM CDT Arti Quinones NETWORK ENGINEER ADMINISTRATOR POINT OF CARE TEST ORDER CAROL ANN [...] to Health Maintenance Insurance [facility] MEDICARE BLUE CROSS MEDICARE SUPPLEMENT MEDICARE [facility] Care Teams Presser Cotton Ginning Relationship Specialty Start Date End Date Konrad De La Torre MD PCP - General Endocrinology Diabetes & Metabolism 03/21/22
--- OUTSIDE RECORDS SUMMARY | 2025-03-08 17:18 | XMS_ITS | Encounter Summary ---
Author Organization [facility] Address [address] [place] [address] Care Team Providers Care Quality Systems Manager Name Role Phone Eden Morrissey MD Primary Care Provider Konrad De La Torre MD Primary Care Provider Armani Skinner DO Primary Care Provider Konrad De La Torre MD Primary Care Provider Encounter Details Date Type Department Care Team (Late st Contact Info) Description 12/27/2017 Community Orders [facility] EpicCare Link Eden Morrissey MD [address] [facility] [address] [place] [address] Localized swelling, mass and lump, lower limb, left (Primary Dx); Claudication of both lower extremities; Bilateral leg pain; Left leg pain Social History Tobacco Use Types Packs/Day Years Used Date Smoking Tobacco: Former Sex and Gender Information Value Date Recorded Sex Assigned at Not on file 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 Gender Identity Male 10/21/2021 6:17 PM CDT Sexual Orientation Not on file documented as of this encounter Plan of Treatment Not on file documented as of this encounter Results * US Arterial Doppler Lower Extremity Bilateral (01/03/2018 10:22 AM CDT) Anatomical Region Laterality Modality Vascular Bilateral Ultrasound 01/03/2018 9:49 AM CDT Narrative 01/03/2018 10:23 AM CDT [facility] - Department of Vascular Surgery, Vascular Laboratory [address] [place] [address] Lower Extremity Arterial Doppler Report Patient Name: [...] mmHg Lt Brachial Pressure 126 mmHg Rt SYS DIR Pressure 110 mmHg Lt SYS DIR Pressure 123 mmHg Rt DPA Pressure 109 mmHg Lt DPA Pressure 110 mmHg Rt 1st Digit Pressure 89 mmHg Lt 1st Digit Pressure 108 mmHg Rt PT MARCOS Resting 0.85 Lt PT MARCOS Resting 0.95 Rt AT MARCOS Resting 0.84 Lt AT MARCOS Resting 0.85 Rt Digit/Arm Index 0.69 Lt Digit/Arm Index 0.84 Findings: Performing House Calls Nurse Practitioner: Meri Loaiza RVT. Janette Vásquez RVT, [facility]. Bilateral All Levels : The [...] normal resting MARCOS is 0.90 - >1.00; AMRCOS >1.00 due to incompressible arteries is not [...] performed. Electronically Signed By: Breezy Núñez MD [facility] 2018-01-03 10:23:04 CDT CC: CC: Procedure Note Breezy Núñez MD - 01/03/2018 [facility] - Department of Vascular Surgery,Vascular Laboratory [address] [place] [address] Lower Extremity Arterial Doppler Report Patient Name: TAYLOR BARRERA TPatient ID: [id number] : [id number] Date: 01/03/2018 9:49:00 AM Gender: MAccession #: [id number] Tech: Jody Loaiza RVTLocation: Ref.Physician: Michelle MORRISSEY(Cm): BSA: Weight(Kg): Quality: AdequateOrder Physician: EDEN MORRISSEY Procedures: Arterial Report: Bilateral lower extremity arterial Doppler exam at rest. Indications: Claudication of both lower extremities . Bilateral leg pain. Measurements: Right - Left - Measurement Value Normal Range MeasurementValue Normal Range Rt Brachial Pressure 129 mmHg Lt Brachial [id number] mmHg Rt SYS DIR Pressure 110 mmHg Lt SYS DIR [id number] mmHg Rt DPA Pressure 109 mmHg Lt DPA Hxpzvnrl396 mmHg Rt 1st Digit Pressure 89 mmHg Lt 1st Digit Vmnvgrlr437 mmHg Rt PT MARCOS Resting 0.85 Lt PT MARCOS Resting0.95 Rt AT MARCOS Resting 0.84 Lt AT MARCOS Resting0.85 Rt Digit/Arm Index 0.69 Lt Digit/Arm Index0.84 Findings: Performing House Calls Nurse Practitioner: Meri Loaiza RVT. Janette Vásquez RVT, RDMS. [...] record ofany testing performed. Electronically Signed By: rBeezy Núñez MD [facility] 2018-01-03 10:23:04 CDT CC: CC: us Eden Morrissey MD IMG US PROCEDURES Final Result * US Vein Duplex Lower Extremity Left Limited (12/27/2017 2:45 PM CDT) Anatomical Region Laterality Modality Vascular Left Ultrasound 12/27/2017 2:30 PM CDT Narrative 12/27/2017 4:37 PM CDT [facility] - Department of Vascular Surgery, Vascular Laboratory [address] [place] [address] Lower Extremity Venous Ultrasound Report Patient Name: [...] limb, left Left leg pain. Findings: Performing House Calls Nurse Practitioner: Odalis Moncada RVT. Left: Venous Doppler signals [...] performed. Electronically Signed By: Breezy Núñez MD [facility] 2017-12-27 16:37:04 CDT CC: CC: Procedure Note Breezy Núñez MD - 12/27/2017 [facility] - Department of Vascular Surgery,Vascular Laboratory [address] [place] [address] Lower Extremity Venous Ultrasound Report Patient Name: TAYLOR BARRERA TPatient ID: [id number] : 1945 (72y 3m)Study Date: 12/27/2017 2:30:57 PM Gender: MAccession #: [id number] Tech: DBLocation: Ref.Physician: EDEN MORRISSEYHeight(Cm): BSA: Weight(Kg): [...] limb, left Left leg pain. Findings: Performing House Calls Nurse Practitioner: Odalis Moncada RVT. Left: Venous Doppler signals [...] performed. Electronically Signed By: Breezy Núñez MD [facility] 2017-12-27 16:37:04 CDT CC: CC: Eden Morrissey [facility]ED[facility] Final Result documented in [...] limb documented in this encounter Care Teams Quality Systems Manager Relationship Specialty Start Date End Date Eden Morrissey MD [address] [address] PCP - General 10/17/16 04/20/21 Konrad De La Torre MD [address] [address] PCP - General Endocrinology Diabetes & Metabolism 04/21/21 02/07/22 Armani Skinner DO [facility] [address] PCP - General Family Medicine 02/08/22 03/20/22 Konrad De La Torre MD [address] [address] PCP - General Endocrinology Diabetes & Metabolism 03/21/22 documented as of this encounter
--- OUTSIDE RECORDS SUMMARY | 2025-03-08 17:18 | XMS_ITS | Clinical Summary ---
Author Organization [facility] Address [address] [place] [address] Care Team Providers Care Computer Forensics Investigator Name Role Phone Sigifredo Segovia MD Primary Care Provider Unavaila ble Allergies No known active allergies Medications insulin lispro 100 UNIT/ML patient supplied PUMP Inject into the skin continuous. Make and model of pump: Insulin type in pump: Basal rate: Insulin to CHO ratio: Insulin Sensitivity factor: Target blood glucose: Active atenolol 50 MG tabletIndicatio ns:Hypertension Take 50 mg by mouth daily. Indications: High Blood Pressure Disorder Active hydrochlorothia zide 25 MG tabletIndicatio ns:Diuretic Therapy Take 25 mg by mouth every morning. Indications: Treatment with Diuretic Therapy Active tamsulosin 0.4 MG CapIndications: prostate Take 0.4 mg by mouth daily. Indications: prostate Active amlodipine 10 MG tabletIndicatio ns:Hypertension Take 10 mg by mouth daily. Indications: High Blood Pressure Disorder Active isosorbide dinitrate 30 MG tabletIndicatio ns:heart Take 30 mg by mouth daily. Indications: heart Active traMADol 50 MG tablet Take 50 mg by mouth every 6 (six) hours as needed for Pain. Active trazodone 50 MG tabletIndicatio ns:Sleep Disturbance Take 50 mg by mouth nightly at bedtime. Indications: Disturbed Sleep Active amitriptyline 25 MG tabletIndicatio ns:sleep Take 25 mg by mouth nightly at bedtime. Indications: sleep Active lovastatin 40 MG tabletIndicatio ns:Hyperlipidem ia Take 40 mg by mouth daily with supper. Indications: High Amount of Fats in the Blood Active gabapentin 800 MG tabletIndicatio ns:Neuropathy Take 800 mg by mouth 3 (three) times daily. Indications: Nerve Disease Active busPIRone 10 MG tabletIndicatio ns:Anxiety Take 10 mg by mouth 3 (three) times daily. Indications: Feeling Anxious Active aspirin EC 81 MG tabletIndicatio ns:Anticoagulan t Therapy Take 81 mg by mouth nightly. Indications: Anticoagulant Therapy Active lisinopril 40 MG tabletIndicatio ns:Hypertension Take 40 mg by mouth daily. Indications: High Blood Pressure Disorder Active Family History Medical History Relation Comments Heart Disease Father Heart Disease Mother Relation Status Comments Father Mother Social History Tobacco Use Types Packs/Day Years Used Date Smoking Tobacco: Former Smokeless Tobacco: Never Comments:quit 40yrs ago Alcohol Use Standard Drinks/Week Comments Not Currently 0 (1 standard drink = 0.6 oz pur e alcohol) Sex and Gender Information Value Date Recorded Sex Assigned at Not on file Legal Sex Male 10:27 PM CDT Gender Identity Not on file Sexual Orientation Not on file Last Filed Vital Signs Vital Sign Reading Time Taken Comments Blood Pressure 116/59 07/29/2019 12:15 PM 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 Pulse 72 07/29/2019 12:15 PM CORE 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 Temperature 36.7 C (98.1 F) 07/29/2019 11:19 AM CORE 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 Respiratory Rate 16 07/29/2019 12:15 PM CORE 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 Oxygen Saturation 93% 07/29/2019 12:15 PM CORE 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 Inhaled Oxygen Concentration - - Weight 117.9 kg (260 lb) 07/29/2019 8:12 AM CORE 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 Height 180.3 cm (5' 11) 07/29/2019 8:12 AM CORE 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 Body Mass Index 36.26 07/29/2019 8:12 AM CORE 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 Plan of Treatment Health Maintenance Due Date Last Done Comments Hepatitis C 09[birth year]21/1963 DTaP, Tdap and Td Vaccines ( 1 - Tdap) 1964 Pneumococcal Vaccine: 50+ Ye ars (1 of 1 - PCV) 09/21/1995 Zoster Vaccines (1 of 2) 09/21/1995 Annual Medicare Wellness Visit 2010 RSV Immunization or 60+ Years (1 - 1-dose 75+ series) 2020 COVID-19 Vaccine ( - 2023-2 5 season) 2025 Meningococcal B Vaccine Aged Out No l onger eligible based on patient's age to complete this topic Meningococcal Vaccine Aged Out No sadaf eb eligible based on patient's age to complete this topic RSV Immunizations Under 20 Months Aged Out No longer eligible based on patient's age to complete this topic Medical Devices Implanted Type Area Coal Trimmer Device Identifier Shelf Expiration Date Model / Serial / Lot Pump Pump Description:Insulin pump Gas Sf6 Substitute Vitreous - [id number] Implanted:Qty: 1 on 07/29/2019 by Gerald Mckeon MD at [facility] Right: Eye [facility] [employer]GICAL [employer] 06/11/2020 [id number] / / [id number] Insurance MEDICARE [facility] Care Teams Computer Forensics Investigator Relationship Specialty Start Date End Date Sigifredo Segovia MD PCP - General INTERNAL MEDICINE 07/25/19
--- OUTSIDE RECORDS SUMMARY | 2025-03-08 17:18 | XMS_ITS | Encounter Summary ---
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 Gender Identity Male 10/21/2021 6:17 PM CDT [...] on filedocumented in this encounter Care Teams Dividend Clerk Relationship Specialty Start Date End Date Sigifredo Segovia MD [address] [address] PCP - General 10/17/16 04/20/21 Konrad De La Torre MD [address] [facility] [address] [address] PCP - General Endocrinology Diabetes & Metabolism 04/21/21 02/07/22 Armani Skinner DO [address] [place] [address] PCP - General Family Medicine 02/08/22 03/20/22 Konrad De La Torre MD [address] [facility] [address] [address] PCP - General Endocrinology Diabetes & Metabolism 03/21/22 documented as of this encounter
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
[2025-03-08 17:33] VITALS: BP 154/75; PULSE 88; RESP 20; TEMP 36.9; O2SAT 95
== END 2025-03-08 17:33 | disposition home or self-care (01) ==
PROVIDERS: Emergency Provider Emergency Medicine; PCP Family Medicine
DX: S91.111D Laceration without foreign body of right great toe without damage to nail, subsequent encounter (principal); E10.9 Type 1 diabetes mellitus without complications; I10 Essential (primary) hypertension; Z87.891 Personal history of nicotine dependence; X58.XXXD Exposure to other specified factors, subsequent encounter
CPT/HCPCS: 12001; 99282

== ENCOUNTER 2025-03-21 07:30 | Outpatient (CLI) | payer MEDICARE, SELFPAY ==
--- NOTE | ~2025-03-21 | NM_ITS ---
EXAMINATION: NM infection spect scan DATE: 03/21/2025 16:21 INDICATION: Assess for osteomyelitis post recent trauma to the right great toe TECHNIQUE: 18.0 mCi Tc-99m Ceretec was administered intravenously. Delayed scintigrams of the bilateral feet were obtained. COMPARISON: Radiographs dated 03/07/2025 FINDINGS as IMPRESSION: Asymmetric increased activity consistent with infection at the right great toe which could be due to cellulitis, septic arthritis, osteomyelitis or some combination thereof. Would recommend obtaining right great toe radiographs to assess for any new bone findings suspicious for osteomyelitis or septic arthritis. Reviewed, dictated and finalized at location A.
--- OUTSIDE RECORDS SUMMARY | 2025-03-21 07:33 | XMS_ITS | Encounter Summary ---
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 Gender Identity Male 10/21/2021 6:17 PM CDT [...] on filedocumented in this encounter Care Teams Canvassing Manager Relationship Specialty Start Date End Date Sigifredo Segovia MD [address] [address] PCP - General 10/17/16 04/20/21 Konrad De La Torre MD [email or web address] [address] PCP - General Endocrinology Diabetes & Metabolism 04/21/21 02/07/22 Armani Skinner DO [address] [place] [address] PCP - General Family Medicine 02/08/22 03/20/22 Konrad De La Torre MD [email or web address] [address] PCP - General Endocrinology Diabetes & Metabolism 03/21/22 documented as of this encounter
--- OUTSIDE RECORDS SUMMARY | 2025-03-21 07:33 | XMS_ITS | Clinical Summary ---
Author Organization [facility] Address [address] [place] [address] Care Team Providers Care Certified Wellness Program Manager Name Role Phone Konrad De La Torre [...] daily 90 capsule 3 024 2024 Discontinued traMADoL (ULTRAM) 50 mg tablet [...] episode Assessment & Plan (07/04/2024 2:01 PM FRONT END ENGINEER): Stop sertraline as he is already taking [...] Lyrica. Assessment & Plan (07/04/2024 2:02 PM FRONT END ENGINEER): Continue current regimen. SCS is in place. [...] medications. Assessment & Plan (06/14/2023 12:24 PM FRONT END ENGINEER): Permanent SCS planned with Dr. Torres. Assessment & Plan (02/14/2023 11:43 AM CDT): Continue Lyrica, Cymbalta, tramadol. Follow up with Dr. Torres. Assessment & Plan (11/11/2022 12:05 PM CDT): Refractory to pregabalin, Cymbalta, tramadol. Refer to Dr. Torres for consideration of SCS. Assessment & Plan (08/09/2022 12:48 PM FRONT END ENGINEER): Stable on current medications. Not interested in SCS at this time. Assessment & Plan (05/11/2022 12:58 PM FRONT END ENGINEER): On tramadol and Lyrica. Add Cymbalta. We [...] today. Assessment & Plan (07/04/2024 2:01 PM FRONT END ENGINEER): A1c near goal. Be sure to bolus [...] above goal. I recommended that he contact [employer] to upgrade tot he 780G pump with Guardian 4 sensor so that he may avail himself of Smartguard (hybrid closed loop). He will schedule his eye exam. Assessment & Plan (06/14/2023 12:24 PM FRONT END ENGINEER): A1c above goal. Increase basal rate from [...] Units/hr. Assessment & Plan (08/09/2022 12:48 PM FRONT END ENGINEER): A1c above goal. Increased basal from MN to 8AM from 1.75 Units/hr to 1.85 Units/hr. Assessment & Plan (05/11/2022 12:57 PM FRONT END ENGINEER): A1c slightly above goal. Increase overnight basal [...] today. Assessment & Plan (07/23/2021 10:17 AM FRONT END ENGINEER): A1c at goal on current therapy. Labs due today. He will schedule eye exam. Assessment & Plan (04/23/2021 1:32 PM FRONT END ENGINEER): At goal on current therapy. Refer to Dr. Shah's group in ophthalmology. Labs current. Osteoarthritis 07/08/2020 Bruit of left carotid artery 10/04/2018 Coronary artery disease invo lving [place] coronary artery without angina pectoris 10/04/2018 Assessment & Plan (07/23/2021 10:17 AM FRONT END ENGINEER): Will see aquatics manager at time of next visit with me. Essential hypertension, benign 10/04/2018 Assessment & Plan (09/30/2024 12:16 PM CDT): At goal on current therapy. Assessment & Plan (07/04/2024 2:01 PM FRONT END ENGINEER): At goal on current therapy. Assessment & Plan (03/28/2024 11:38 AM CDT): At goal on current therapy. Assessment & Plan (12/13/2023 1:09 PM CDT): BP low-normal with orthostasis. Decrease lisinopril dose to 10 mg daily. Assessment & Plan (09/12/2023 4:07 PM CDT): At goal on current therapy. Assessment & Plan (06/14/2023 12:23 PM FRONT END ENGINEER): Still having orthostasis and BP is low-normal. Halve carvedilol to 12.5 mg BID. Assessment & Plan (02/14/2023 11:42 AM CDT): Due to ongoing low-normal blood pressures and orthostatic symptoms, will reduce lisinopril dose to 5 mg daily. Assessment & Plan (11/11/2022 12:04 PM CDT): At goal on current therapy. Assessment & Plan (08/09/2022 12:47 PM FRONT END ENGINEER): BP still low-normal and he is lightheaded. Halve dose of lisinopril to 10 mg daily. Assessment & Plan (05/11/2022 12:57 PM FRONT END ENGINEER): At goal on current therapy. Assessment & Plan (02/08/2022 12:35 PM CDT): BP low with associated lightheadedness. Cut lisinopril dose in half to 20 mg daily. Assessment & Plan (10/21/2021 9:48 PM CDT): At goal on current therapy. Assessment & Plan (07/23/2021 10:16 AM FRONT END ENGINEER): At goal on current therapy. Assessment & Plan (04/23/2021 1:32 PM FRONT END ENGINEER): At goal on current therapy. Mixed hyperlipidemia 10/04/2018 Assessment & Plan (09/30/2024 12:16 PM CDT): At goal on current therapy. Assessment & Plan (07/04/2024 1:25 PM FRONT END ENGINEER): At goal on current therapy. Assessment & Plan (03/28/2024 12:24 PM CDT): At goal on current therapy. Assessment & Plan (12/13/2023 1:09 PM CDT): Due for lipid check. He is taking atorvastatin 80 mg daily. Assessment & Plan (06/14/2023 12:23 PM FRONT END ENGINEER): At goal on current therapy. Assessment & Plan (02/14/2023 11:42 AM CDT): At goal on current therapy. Assessment & Plan (11/11/2022 12:04 PM CDT): At goal on current therapy. Assessment & Plan (08/09/2022 12:47 PM FRONT END ENGINEER): At goal on current therapy. Assessment & Plan (05/11/2022 12:57 PM FRONT END ENGINEER): At goal on current therapy. Assessment & Plan (02/08/2022 12:35 PM CDT): At goal on current therapy. Assessment & Plan (10/21/2021 9:48 PM CDT): LDL not at goal. Increase Lipitor to 80 mg daily. Assessment & Plan (07/23/2021 10:16 AM FRONT END ENGINEER): At goal on current therapy. Assessment & Plan (04/23/2021 1:33 PM FRONT END ENGINEER): At goal on current therapy. Resolved Problems Problem Noted Date Diagnosed Date Resolved Date Type 1 diabetes mellitus without complication 07/08/19 21 01/01/2025 Medicare annual wellness visit, initial 07/08/2020 01/01/2025 Encounters Date Type Department Care Team Description 01/02/2025 Results Follow-Up [facility] [address] [place] [phone] Arti Quinones, JAZZMINE Albumin Creatinine Ratio, Urine, PSA screen, Thyroid Function [place], Additional followed-up results: 5 01/01/2025 1:15 PM CDT Office Visit [facility] [address] [place] [id number] Arti Quinones, JAZZMINE Type 1 diabetes mellitus [...] on file Legal Sex Male 2:04 AM FRONT END ENGINEER Gender Identity Male 10/21/2021 6:17 PM CDT [...] Fall Risk Assessment 09/27/2024 09/28/2023 Covid-19 Vaccine (2024-07 6 season) 2025 03/22/2023, 03/28/2022, 04/09/2021, Additional [...] Completed 01/30/2018 Medical Devices Implanted Type Area Field Trainer Device Identifier Shelf Expiration Date Model / Serial / Lot [employer]onic Inc Vectris 5mm 60cm 1x8 Electrode Mri Lead Neurostimulator [id number] - [id number] Implanted:Qty: 1 on 08/24/2023 by Dashawn Torres MD at [facility] N/A: Back [employer] Inc 08/01/2027 [id number] / / [id number] [employer] Inc Vectris 5mm 60cm 1x8 Electrode Mri Lead Neurostimulator [id number] - [id number] Implanted:Qty: 1 on 08/24/2023 by Dashawn Torres MD at [facility] N/A: Back [employer] Inc 08/01/2027 [id number] / / [id number] [employer] Inc Neurostimulator Implantable Chronic Pain [id number] - [id number] - [id number] Implanted:Qty: 1 on 08/24/2023 by Dashawn Torres MD at [facility] N/A: Back [employer] Inc 06/08/2024 [id number] / [id number] / Med[employer]onic Inc Envelope Absrb 2.7x2.5in Antibacterial Tyrx Medium Strl [id number] - [id number] Implanted:Qty: 1 on 08/24/2023 by Dashawn Torres MD at [facility] N/A: Back [employer] Inc 05/23/2024 [id number] / / [id number] Procedures Procedure Name Priority Date/Time Associated Diagnosis [...] with hyperglycemia (HCC) Mixed hyperlipidemia POCT GLUCOSE 27289 Routine 01/01/2025 12:50 PM CDT Type 1 diabetes mellitus with hyperglycemia (HCC) Mixed hyperlipidemia CT ABDOMEN PELVIS W CONTRAST Schedule Routine, Read Routine (OP Routine) 01/30/2018 10:51 AM CDT Leg swelling from Last 3 Months or Most Recently Relevant to Health Maintenance Results * Thyroid Function [place] (01/01/2025 1:54 PM CDT) TSH 1.680 0.450 - 4.500 uIU/mL [facility] - 01 Comment: No apparent thyroid disorder. Additional testing not indicated. In rare instances, Secondary Hypothyroidism as well as Subclinical Hypothyroidism have been reported in some patients with normal TSH values. Blood 01/01/2025 1:54 PM CDT 01/01/2025 Narrative [facility] - 01/02/2025 12:10 PM CDT Performed at: [address] [place] [id number] Primer Waterproofing Machine Operator: Chaka Hu PhD, Phone: [phone] Arti Quinones NURSING UNIT MANAGER LAB BLOOD ORDERABLES Fin al Result [facility] - 01 * PSA screen (01/01/2025 1:54 PM CDT) Pathologist [facility] PSA 0.5 0.0 - 4.0 ng/mL [facility] - 01 Comment: Padmaja ECLIA methodology. According to the [place] [employer], Serum PSA should decrease and [...] - 01/02/2025 12:10 PM CDT Performed at: [address] [place] [id number] [employer] Waterproofing Machine Operator: Chaka Hu PhD, Phone: [phone] us Arti Quinones NURSING UNIT MANAGER LAB BLOOD ORDERABLES Fin al Result [facility] - 01 * (ABNORMAL) CBC with auto differential (01/01/2025 1:54 PM CDT) Pathologist [facility] WBC 12.0(H) 3.4 - 10.8 x10E3/uL [facility] [...] - 01/02/2025 5:36 AM CDT Performed at: [address] [id number] [employer] Waterproofing Machine Operator: Chaka Hu PhD, Phone: [phone] Arti Quinones NURSING UNIT MANAGER LAB BLOOD ORDERABLES Fin al Result Performing Organization Address [facility] de Phone Number [facility] - * (ABNORMAL) Vitamin D 25 hydroxy (01/01/2025 1:54 PM CDT) Vitamin D, 25-Hydroxy 25.3(L) 30.0 - 100.0 ng/mL [facility] - Comment: Vitamin D deficiency has been defined by the [place] of [employer] and an Endocrine Society practice guideline as a level of serum 25-OH vitamin D less than 20 ng/mL (1,2). The Endocrine Society went on to further define vitamin D insufficiency as a level between 21 and 29 ng/mL (2). 1. IOM ([place] of [employer]). 2010. Dietary reference intakes for calcium and D. [place]: The National Academies Press. 2. Colton MF, Barb NC, Ethel FONTENOT, et al. Evaluation, treatment, and prevention of vitamin D deficiency: an Endocrine Society clinical practice guideline. JCEM. 2010; 96(7):1911-30. Blood 01/01/2025 1:54 PM CDT 01/01/2025 Narrative [facility] - 01/02/2025 9:36 AM CDT Performed at: [address] [id number] [employer]proof[employer] Machine Operator: Chaka Hu PhD, Phone: [phone] Arti Quinones NURSING UNIT MANAGER LAB BLOOD ORDERABLES Fin al Result Performing Organization Address [facility] Co de Phone Number [facility] - * Comprehensive metabolic panel (01/01/2025 1:54 PM CDT) Glucose 73 70 - 99 mg/dL [facility] [...] - 01/02/2025 11:11 AM CDT Performed at: 01 - [address] [id number] [employer] Waterproof[employer] Machine Operator: Chaka Hu PhD, Phone: [phone] us Arti Quinones NURSING UNIT MANAGER LAB BLOOD ORDERABLES Fin al Result [facility] - 01 * URINALYSIS, COMPLETE W/REFLEX TO CULTURE (01/01/2025 1:08 PM CDT) Specific [place] 1.022 1.005 - 1.030 [facility] - 01 [...] - 01/02/2025 6:36 AM CDT Performed at: [address] [id number] [employer] Waterproof[employer] Machine Operator: Chaka uH PhD, Phone: [phone] us Arti Quinones NURSING UNIT MANAGER LAB URINE ORDERABLES Fin al Result [facility] * Microscopic Examination (01/01/2025 1:08 PM CDT) [...] - 01/02/2025 6:36 AM CDT Performed at: [address] [id number] [employer] Waterproofing Machine Operator: Chaka Hu PhD, Phone: [phone] Arti Quinones NURSING UNIT MANAGER LAB BLOOD ORDERABLES Fin al Result Performing Organization Address City/[facility]/ZIP Co de Phone Number [facility] - 01 * Albumin Creatinine Ratio, [...] - 01/02/2025 12:36 PM CDT Performed at: [address] [place] [id number] [employer] Waterproofing Machine Operator: Chaka Hu PhD, Phone: [phone] Arti Quinones NURSING UNIT MANAGER LAB URINE ORDERABLES Fin al Result Performing Organization Address [facility] Co de Phone Number [email or web address] - 01 * POCT glucose (01/01/2025 12:50 PM CDT) Glucose Blood, POC 202 Normal Fasting 70 [...] Recently Relevant to Health Maintenance [place] [address] [facility] MEDICARE MEDICARE [facility] MEDICARE SUPPLEMENT MEDICARE [facility] MEDICARE Care Teams Certified Wellness Program Manager Relationship Specialty Start Date End Date Konrad De La Torre MD PCP - General Endocrinology Diabetes & Metabolism 03/21/22
--- OUTSIDE RECORDS SUMMARY | 2025-03-21 07:33 | XMS_ITS | Encounter Summary ---
Author Organization [facility] Healthcare Address [address] [place] [address] Care Team Providers Care Stucco Worker Name Role Phone Eden Morrissey MD Primary Care Provider [phone] Konrad De La Torre MD Primary Care Provider Armani Skinner DO Primary Care Provider Konrad De La Torre MD Primary Care Provider Encounter Details Date Type Department Care Team (Late st Contact Info) Description 12/27/2017 Community Orders [facility] EpicCare Link Eden Morrissey MD [address] [facility] [address] [place] [address] Localized swelling, mass and lump, lower limb, left (Primary Dx); Claudication of both lower extremities; Bilateral leg pain; Left leg pain Social History Tobacco Use Types Packs/Day Years Used Date Smoking Tobacco: Former Sex and Gender Information Value Date Recorded Sex Assigned at Not on file Legal Sex Male 2:04 AM 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 Gender Identity Male 10/21/2021 6:17 PM CDT Sexual Orientation Not on file documented as of this encounter Plan of Treatment Not on file documented as of this encounter Results * US Arterial Doppler Lower Extremity Bilateral (01/03/2018 10:22 AM CDT) Anatomical Region Laterality Modality Vascular Bilateral Ultrasound 01/03/2018 9:49 AM CDT Narrative 01/03/2018 10:23 AM CDT [facility] - Department of Vascular Surgery, Vascular Laboratory [address] [place] [address] Lower Extremity Arterial Doppler Report Patient Name: [...] mmHg Lt Brachial Pressure 126 mmHg Rt FILM PRODUCER Pressure 110 mmHg Lt FILM PRODUCER Pressure 123 mmHg Rt DPA Pressure 109 mmHg Lt DPA Pressure 110 mmHg Rt 1st Digit Pressure 89 mmHg Lt 1st Digit Pressure 108 mmHg Rt PT MARCOS Resting 0.85 Lt PT MARCOS Resting 0.95 Rt AT MARCOS Resting 0.84 Lt AT MARCOS Resting 0.85 Rt Digit/Arm Index 0.69 Lt Digit/Arm Index 0.84 Findings: Performing Department Of Mathematics Chair: Meri Loaiza RVT. Janette Vásquez RVT, [facility]. Bilateral All Levels : The bilateral [...] of any testing performed. Electronically Signed By: Breeyz Núñez MD [facility] 2018-01-03 10:23:04 CDT CC: CC: Procedure Note Breezy Núñez MD - 01/03/2018 [facility] - Department of Vascular Surgery,Vascular Laboratory [address] [place] [address] Lower Extremity Arterial Doppler Report Patient Name: TAYLOR BARRERA TPatient ID: [id number] : [id number] Date: 01/03/2018 9:49:00 AM Gender: MAccession #: [id number] Tech: Jody Loaiza RVTLocation: Ref.Physician: Michelle MORRISSEY(Cm): BSA: Weight(Kg): Quality: AdequateOrder Physician: EDEN MORRISSEY Procedures: Arterial Report: Bilateral lower extremity arterial Doppler exam at rest. Indications: Claudication of both lower extremities . Bilateral leg pain. Measurements: Right - Left - Measurement Value Normal Range MeasurementValue Normal Range Rt Brachial Pressure 129 mmHg Lt Brachial Lpjmgkwh685 mmHg Rt FILM PRODUCER Pressure 110 mmHg Lt FILM PRODUCER Yfnlvocf011 mmHg Rt DPA Pressure 109 mmHg Lt DPA Ezrqwmhj530 mmHg Rt 1st Digit Pressure 89 mmHg Lt 1st Digit Jfzdfnbq395 mmHg Rt PT MARCOS Resting 0.85 Lt PT MARCOS Resting0.95 Rt AT MARCOS Resting 0.84 Lt AT MARCOS Resting0.85 Rt Digit/Arm Index 0.69 Lt Digit/Arm Index0.84 Findings: Performing Department Of Mathematics Chair: Meir Loaiza RVT. Janette Vásquez RVT, RDMS. Bilateral [...] performed. Electronically Signed By: Breezy Núñez MD [facility] 2018-01-03 10:23:04 CDT CC: CC: us Eden Morrissey MD IMG US PROCEDURES Final Result * US Vein Duplex Lower Extremity Left Limited (12/27/2017 2:45 PM CDT) Anatomical Region Laterality Modality Vascular Left Ultrasound 12/27/2017 2:30 PM CDT Narrative 12/27/2017 4:37 PM CDT [facility] - Department of Vascular Surgery, Vascular Laboratory [address] [place] [address] Lower Extremity Venous Ultrasound Report Patient Name: [...] limb, left Left leg pain. Findings: Performing Department Of Mathematics Chair: Odalis Moncada RVT. Left: Venous Doppler signals [...] performed. Electronically Signed By: Breezy Núñez MD [facility] 2017-12-27 16:37:04 CDT CC: CC: Procedure Note Breezy Núñez MD - 12/27/2017 [facility] - Department of Vascular Surgery,Vascular Laboratory [address] [place] [address] Lower Extremity Venous Ultrasound Report Patient Name: TAYLOR BARRERA TPatient ID: [id number] : 1945 (72y 3m)Study Date: 12/27/2017 2:30:57 PM Gender: MAccession #: [id number] Tech: DBLocation: Ref.Physician: EDEN MORRISSEYHeight(Cm): BSA: Weight(Kg): [...] limb, left Left leg pain. Findings: Performing Department Of Mathematics Chair: Odalis Moncada RVT. Left: Venous Doppler signals [...] performed. Electronically Signed By: Breezy Núñez MD [facility] 2017-12-27 16:37:04 CDT CC: CC: Eden Morrissey MD [facility] PROCED[facility] Final Result documented in this encounter [...] limb documented in this encounter Care Teams Stucco Worker Relationship Specialty Start Date End Date Eden Morrissey MD [address] [address] PCP - General 10/17/16 04/20/21 Konrad De La Torre MD [address] [address] PCP - General Endocrinology Diabetes & Metabolism 04/21/21 02/07/22 Armani Skinner DO [facility] [place] [address] PCP - General Family Medicine 02/08/22 03/20/22 Konrad De La Torre MD [address] [address] PCP - General Endocrinology Diabetes & Metabolism 03/21/22 documented as of this encounter
== END 2025-03-21 07:31 | disposition home or self-care (01) ==
PROVIDERS: PCP Family Medicine; Visit Provider Family Medicine
DX: M86.9 Osteomyelitis, unspecified (principal); S91.301A Unspecified open wound, right foot, initial encounter; R93.89 Abnormal findings on diagnostic imaging of other specified body structures
CPT/HCPCS: 78803; A9521

== ENCOUNTER 2025-03-28 09:08 | Outpatient (CLI) | payer MEDICARE, SELFPAY ==
--- OUTSIDE RECORDS SUMMARY | 2011-04-21 07:30 | XMS_ITS | Continuity of Care Document ---
Author Organization [facility], L TD Address [facility] [place] [address] Phone Care Team Providers Care Demonstrator Sales Name Role Phone Unavailable Unavailable Unavailable Allergies, [...] Diagnoses Date Provider Providers Copied on Encounter [facility], [facility], [address] [place] [address], [id number] , tel:[phone] [facility] No Information 0-201 1 No Information [facility], [address] [place] [address], [id number] , tel:[phone] [facility] Eye [facility] Diabetes Mellitus Type 2, UncomplicatedLens replaced by other meansMacular puckering of retina 1 No Information Referring Provider: Rinku Paz I, [address] [place] [address], [id number] . tel:[phone], [id number] , tel: [phone] [facility] No Information 1 No Information [facility], [address] [place] [address], [id number] , [phone] [facility] No Information 0 Jackson Dobbs. [address] [place] [address], [id number], . tel:[phone] Referring Provider: Rinku Paz I, [address] [place] [address], [id number] . tel:[phone] Family History Family Member Type Diagnosis Age [...] libertarian ID Authoriza tion(s) Medicare [place] [id number] [facility] [id number] Social History Type Description Quantity Date Captured [...]
--- NOTE | 2025-03-28 09:11 | ECG_ITS ---
Test Date: 2025-03-28 09:23:17 Measurements Intervals [place] Rate: 75 P: 25 CA: 184 QRS: 78 QRSD: 89 T: 47 QT: 344 QTc: 386 Interpretive Statements SINUS RHYTHM BASELINE WANDER- I, II, III, AVR, AVL, AVF, V1-V3 NORMAL ECG No previous ECG available for comparison Electronically Signed On 03-28-2025 10:08:37 CDT by Chan Pena D.O.
--- OUTSIDE RECORDS SUMMARY | 2025-03-28 09:32 | XMS_ITS | Encounter Summary ---
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 Gender Identity Male 10/21/2021 6:17 PM CDT [...] on filedocumented in this encounter Care Teams Depositing Machine Operator Relationship Specialty Start Date End Date Sigifredo Segovia MD [id number] [address] PCP - General 10/17/16 04/20/21 Konrad De La Torre MD [address] [address] PCP - General Endocrinology Diabetes & Metabolism 04/21/21 02/07/22 Armani Skinner DO [address] [place] [address] PCP - General Family Medicine 02/08/22 03/20/22 Konrad De La Torre MD [address] [address] PCP - General Endocrinology Diabetes & Metabolism 03/21/22 documented as of this encounter
--- OUTSIDE RECORDS SUMMARY | 2025-03-28 09:32 | XMS_ITS | Encounter Summary ---
Author Organization [facility] Healthcare Address [address] [place] [address] Care Team Providers Care Manager University Name Role Phone Eden Morrissey MD Primary Care Provider [phone] Konrad De La Torre MD Primary Care Provider Armani Skinner DO Primary Care Provider Konrad De La Torre MD Primary Care Provider Encounter Details Date Type Department Care Team (Late st Contact Info) Description 12/27/2017 Community Orders [facility] EpicCare Link Eden Morrissey MD [address] [facility] [address] [place] [address] Localized swelling, mass and lump, lower limb, left (Primary Dx); Claudication of both lower extremities; Bilateral leg pain; Left leg pain Social History Tobacco Use Types Packs/Day Years Used Date Smoking Tobacco: Former Sex and Gender Information Value Date Recorded Sex Assigned at Not on file Legal Sex Male 2:04 AM HIDE OR SKIN BUFFER Gender Identity Male 10/21/2021 6:17 PM CDT Sexual Orientation Not on file documented as of this encounter Plan of Treatment Not on file documented as of this encounter Results * US Arterial Doppler Lower Extremity Bilateral (01/03/2018 10:22 AM CDT) Anatomical Region Laterality Modality Vascular Bilateral Ultrasound 01/03/2018 9:49 AM CDT Narrative 01/03/2018 10:23 AM CDT [facility] - Department of Vascular Surgery, Vascular Laboratory [address] [place] [address] Lower Extremity Arterial Doppler Report Patient Name: [...] mmHg Lt Brachial Pressure 126 mmHg Rt CROCHET MACHINE OPERATOR Pressure 110 mmHg Lt CROCHET MACHINE OPERATOR Pressure 123 mmHg Rt DPA Pressure 109 mmHg Lt DPA Pressure 110 mmHg Rt 1st Digit Pressure 89 mmHg Lt 1st Digit Pressure 108 mmHg Rt PT MARCOS Resting 0.85 Lt PT MARCOS Resting 0.95 Rt AT MARCOS Resting 0.84 Lt AT MARCOS Resting 0.85 Rt Digit/Arm Index 0.69 Lt Digit/Arm Index 0.84 Findings: Performing Gunner'S Mate: Meri Loaiza RVT. Janette Vásquez RVT, [facility]. Bilateral All Levels : The bilateral common [...] performed. Electronically Signed By: Breezy Núñez MD [facility] 2018-01-03 10:23:04 CDT CC: CC: Procedure Note Breezy Núñez MD - 01/03/2018 [facility] - Department of Vascular Surgery,Vascular Laboratory [address] [place] [address] Lower Extremity Arterial Doppler Report Patient Name: TAYLOR BARRREA TPatient ID: [id number] : [id number] Date: 01/03/2018 9:49:00 AM Gender: MAccession #: [id number] Tech: Jody Loaiza RVTLocation: Ref.Physician: iMchelle MORRISSEY(Cm): BSA: Weight(Kg): Quality: AdequateOrder Physician: EDEN MORRISSEY Procedures: Arterial Report: Bilateral lower extremity arterial Doppler exam at rest. Indications: Claudication of both lower extremities . Bilateral leg pain. Measurements: Right - Left - Measurement Value Normal Range MeasurementValue Normal Range Rt Brachial Pressure 129 mmHg Lt Brachial Xzpihpou774 mmHg Rt CROCHET MACHINE OPERATOR Pressure 110 mmHg Lt CROCHET MACHINE OPERATOR Asmurmhh317 mmHg Rt DPA Pressure 109 mmHg Lt DPA Nknxvlnv256 mmHg Rt 1st Digit Pressure 89 mmHg Lt 1st Digit Vofdtzwz614 mmHg Rt PT MARCOS Resting 0.85 Lt PT MARCOS Resting0.95 Rt AT MARCOS Resting 0.84 Lt AT MARCOS Resting0.85 Rt Digit/Arm Index 0.69 Lt Digit/Arm Index0.84 Findings: Performing Gunner'S Mate: Meri Loaiza RVT. Janette Vásquez RVT, RDMS. [...] performed. Electronically Signed By: Breezy Núñez MD [facility] 2018-01-03 10:23:04 CDT CC: CC: us Eden Morrissey MD IMG US PROCEDURES Final Result * US Vein Duplex Lower Extremity Left Limited (12/27/2017 2:45 PM CDT) Anatomical Region Laterality Modality Vascular Left Ultrasound 12/27/2017 2:30 PM CDT Narrative 12/27/2017 4:37 PM CDT [facility] - Department of Vascular Surgery, Vascular Laboratory [address] [place] [address] Lower Extremity Venous Ultrasound Report Patient Name: [...] limb, left Left leg pain. Findings: Performing Gunner'S Mate: Odalis Moncada RVT. Left: Venous Doppler signals [...] performed. Electronically Signed By: Breezy Núñez MD [facility] 2017-12-27 16:37:04 CDT CC: CC: Procedure Note Breezy Núñez MD - 12/27/2017 [facility] - Department of Vascular Surgery,Vascular Laboratory [address] [place] [address] Lower Extremity Venous Ultrasound Report Patient Name: TAYLOR BARRERA TPatient ID: [id number] : 1945 (72y 3m)Study Date: 12/27/2017 2:30:57 PM Gender: MAccession #: [id number] Tech: DBLocation: Ref.Physician: EDEN MORRISSEYHeight(Cm): BSA: Weight(Kg): [...] limb, left Left leg pain. Findings: Performing Gunner'S Mate: Odalis Moncada RVT. Left: Venous Doppler signals [...] performed. Electronically Signed By: Breezy Núñez MD [facility] 2017-12-27 16:37:04 CDT CC: CC: Eden Morrissey [facility] PROC[facility] Final Result documented [...] limb documented in this encounter Care Teams Manager University Relationship Specialty Start Date End Date Eden Morrissey MD [address] [address] PCP - General 10/17/16 04/20/21 Konrad De La Torre MD [address] [address] PCP - General Endocrinology Diabetes & Metabolism 04/21/21 02/07/[address] [facility] [place] [address] PCP - General Family Medicine 02/08/22 03/20/22 Konrad De La Torre MD [address] [address] PCP - General Endocrinology Diabetes & Metabolism 03/21/22 documented as of this encounter
--- OUTSIDE RECORDS SUMMARY | 2025-03-28 09:32 | XMS_ITS | Clinical Summary ---
Author Organization [facility] Address [address] [place] [address] Care Team Providers Care Statistical Geneticist Name Role Phone Konrad De La Torre [...] daily 90 capsule 3 024 2024 Discontinued Active Problems Problem Noted Date [...] episode Assessment & Plan (07/04/2024 2:01 PM CAR DRYER): Stop sertraline as he is already taking [...] Lyrica. Assessment & Plan (07/04/2024 2:02 PM CAR DRYER): Continue current regimen. SCS is in place. [...] medications. Assessment & Plan (06/14/2023 12:24 PM CAR DRYER): Permanent SCS planned with Dr. Torres. Assessment & Plan (02/14/2023 11:43 AM CDT): Continue Lyrica, Cymbalta, tramadol. Follow up with Dr. Torres. Assessment & Plan (11/11/2022 12:05 PM CDT): Refractory to pregabalin, Cymbalta, tramadol. Refer to Dr. Torres for consideration of SCS. Assessment & Plan (08/09/2022 12:48 PM CAR DRYER): Stable on current medications. Not interested in SCS at this time. Assessment & Plan (05/11/2022 12:58 PM CAR DRYER): On tramadol and Lyrica. Add Cymbalta. We [...] today. Assessment & Plan (07/04/2024 2:01 PM CAR DRYER): A1c near goal. Be sure to bolus [...] exam. Assessment & Plan (06/14/2023 12:24 PM CAR DRYER): A1c above goal. Increase basal rate from [...] Units/hr. Assessment & Plan (08/09/2022 12:48 PM CAR DRYER): A1c above goal. Increased basal from MN to 8AM from 1.75 Units/hr to 1.85 Units/hr. Assessment & Plan (05/11/2022 12:57 PM CAR DRYER): A1c slightly above goal. Increase overnight basal [...] today. Assessment & Plan (07/23/2021 10:17 AM CAR DRYER): A1c at goal on current therapy. Labs due today. He will schedule eye exam. Assessment & Plan (04/23/2021 1:32 PM CAR DRYER): At goal on current therapy. Refer to Dr. Shah's group in ophthalmology. Labs current. Osteoarthritis 07/08/2020 Bruit of left carotid artery 10/04/2018 Coronary artery disease invo lving [place] coronary artery without angina pectoris 10/04/2018 Assessment & Plan (07/23/2021 10:17 AM CAR DRYER): Will see car sander at time of next visit with me. Essential hypertension, benign 10/04/2018 Assessment & Plan (09/30/2024 12:16 PM CDT): At goal on current therapy. Assessment & Plan (07/04/2024 2:01 PM CAR DRYER): At goal on current therapy. Assessment & Plan (03/28/2024 11:38 AM CDT): At goal on current therapy. Assessment & Plan (12/13/2023 1:09 PM CDT): BP low-normal with orthostasis. Decrease lisinopril dose to 10 mg daily. Assessment & Plan (09/12/2023 4:07 PM CDT): At goal on current therapy. Assessment & Plan (06/14/2023 12:23 PM CAR DRYER): Still having orthostasis and BP is low-normal. Halve carvedilol to 12.5 mg BID. Assessment & Plan (02/14/2023 11:42 AM CDT): Due to ongoing low-normal blood pressures and orthostatic symptoms, will reduce lisinopril dose to 5 mg daily. Assessment & Plan (11/11/2022 12:04 PM CDT): At goal on current therapy. Assessment & Plan (08/09/2022 12:47 PM CAR DRYER): BP still low-normal and he is lightheaded. Halve dose of lisinopril to 10 mg daily. Assessment & Plan (05/11/2022 12:57 PM CAR DRYER): At goal on current therapy. Assessment & Plan (02/08/2022 12:35 PM CDT): BP low with associated lightheadedness. Cut lisinopril dose in half to 20 mg daily. Assessment & Plan (10/21/2021 9:48 PM CDT): At goal on current therapy. Assessment & Plan (07/23/2021 10:16 AM CAR DRYER): At goal on current therapy. Assessment & Plan (04/23/2021 1:32 PM CAR DRYER): At goal on current therapy. Mixed hyperlipidemia 10/04/2018 Assessment & Plan (09/30/2024 12:16 PM CDT): At goal on current therapy. Assessment & Plan (07/04/2024 1:25 PM CAR DRYER): At goal on current therapy. Assessment & Plan (03/28/2024 12:24 PM CDT): At goal on current therapy. Assessment & Plan (12/13/2023 1:09 PM CDT): Due for lipid check. He is taking atorvastatin 80 mg daily. Assessment & Plan (06/14/2023 12:23 PM CAR DRYER): At goal on current therapy. Assessment & Plan (02/14/2023 11:42 AM CDT): At goal on current therapy. Assessment & Plan (11/11/2022 12:04 PM CDT): At goal on current therapy. Assessment & Plan (08/09/2022 12:47 PM CAR DRYER): At goal on current therapy. Assessment & Plan (05/11/2022 12:57 PM CAR DRYER): At goal on current therapy. Assessment & Plan (02/08/2022 12:35 PM CDT): At goal on current therapy. Assessment & Plan (10/21/2021 9:48 PM CDT): LDL not at goal. Increase Lipitor to 80 mg daily. Assessment & Plan (07/23/2021 10:16 AM CAR DRYER): At goal on current therapy. Assessment & Plan (04/23/2021 1:33 PM CAR DRYER): At goal on current therapy. Resolved Problems Problem Noted Date Diagnosed Date Resolved Date Type 1 diabetes mellitus without complication 07/08/1901/01/2025 Medicare annual wellness visit, initial 07/08/2020 01/01/2025 Encounters Date Type Department Care Team Description 01/02/2025 Results Follow-Up [facility] [address] [place] [phone] Arti Quinones NP Albumin Creatinine Ratio, Urine, PSA screen, Thyroid Function Ama, Additional followed-up results: 5 01/01/2025 1:15 PM CDT Office Visit [facility] [address] [place] [phone] Arti Quinones NP Type 1 diabetes mellitus with hyperglycemia (HCC) [...] on file Legal Sex Male 2:04 AM CAR DRYER Gender Identity Male 10/21/2021 6:17 PM CDT [...] Completed 01/30/2018 Medical Devices Implanted Type Area Sealer Aircraft Device Identifier Shelf Expiration Date Model / Serial / Lot Medtronic Inc Vectris 5mm 60cm 1x8 Electrode Mri Lead Neurostimulator [id number] - [id number] Implanted:Qty: 1 on 08/24/2023 by Dashawn Torres MD at [facility] N/A: Back [employer] Inc 08/01/2027 [id number] / / [id number] Med[employer]onic Inc Vectris 5mm 60cm 1x8 Electrode Mri Lead Neurostimulator [id number] - [id number] Implanted:Qty: 1 on 08/24/2023 by Dashawn Torres MD at [facility] N/A: Back [employer] Inc 08/01/2027 [id number] / / [id number] Medtronic Inc Neurostimulator Implantable Chronic Pain [id number] - [id number] - [id number] Implanted:Qty: 1 on 08/24/2023 by Dashawn Torres MD at [facility] N/A: Back [employer] Inc 06/08/2024 [id number] / [id number] / Med[employer]onic Inc Envelope Absrb 2.7x2.5in Antibacterial Tyrx Medium Strl [id number] - [id number] Implanted:Qty: 1 on 08/24/2023 by Dashawn Torres MD at [facility] N/A: Back [employer] Inc 05/23/2024 [id number] / / [id number] Procedures Procedure Name Priority Date/Time Associated Diagnosis [...] with hyperglycemia (HCC) Mixed hyperlipidemia POCT GLUCOSE 33954 Routine 01/01/2025 12:50 PM CDT Type 1 diabetes mellitus with hyperglycemia (HCC) Mixed hyperlipidemia CT ABDOMEN PELVIS W CONTRAST Schedule Routine, Read Routine (OP Routine) 01/30/2018 10:51 AM CDT Leg swelling from Last 3 Months or Most Recently Relevant to Health Maintenance Results * Thyroid Function Ama (01/01/2025 1:54 PM CDT) TSH 1.680 0.450 - 4.500 uIU/mL [facility] - 01 Comment: No apparent thyroid disorder. Additional testing not indicated. In rare instances, Secondary Hypothyroidism as well as Subclinical Hypothyroidism have been reported in some patients with normal TSH values. Blood 01/01/2025 1:54 PM CDT 01/01/2025 Narrative [facility] - 01/02/2025 12:10 PM CDT Performed at: [address] [place] [id number] Plant Floor Automation Manager: Chaka Hu PhD, Phone: [phone] Arti Quinones NP LAB BLOOD ORDERABLES Fin al Result Performing Organization Address [facility] de Phone Number [facility] - 01 * PSA screen (01/01/2025 1:54 PM CDT) PSA 0.5 0.0 - 4.0 ng/mL [facility] - 01 Comment: Padmaja ECLIA methodology. According to the [place] U[employer], Serum PSA should decrease and [...] - 01/02/2025 12:10 PM CDT Performed at: [address] [place] [id number] Plant Floor Automation Manager: Chaka Hu PhD, Phone: [phone] Arti Quinones NP LAB BLOOD ORDERABLES Fin al Result [facility] [...] - 01/02/2025 5:36 AM CDT Performed at: [facility] [id number] Plant Floor Automation Manager: Chaka Hu PhD, Phone: [phone] Arti Quinones TITLE MANAGER LAB BLOOD ORDERABLES Fin al Result Performing Organization Address [facility] Co de Phone Number [facility] * (ABNORMAL) Vitamin D 25 hydroxy (01/01/2025 1:54 PM CDT) Vitamin D, 25-Hydroxy 25.3(L) 30.0 - 100.0 ng/mL [facility] - 01 Comment: Vitamin D deficiency has been defined by the [place] of Medicine and an Endocrine Society practice guideline as a level of serum 25-OH vitamin D less than 20 ng/mL (1,2). The Endocrine Society went on to further define vitamin D insufficiency as a level between 21 and 29 ng/mL (2). 1. IOM ([place] of Medicine). 2010. Dietary reference intakes for calcium and D. [place]: The National Academies Press. 2. Colton MF, Barb MACIAS, Ethel FONTENOT, et al. Evaluation, treatment, and prevention of vitamin D deficiency: an Endocrine Society clinical practice guideline. JCEM. 2010; 96(7):1911-30. Blood 01/01/2025 1:54 PM CDT 01/01/2025 Narrative [facility] - 01/02/2025 9:36 AM CDT Performed at: [address] [id number] Plant Floor Automation Manager: Chaka Hu PhD, Phone: [phone] Arti Quinones TITLE MANAGER LAB BLOOD ORDERABLES Fin al Result Performing Organization Address City/[facility]/ZIP Co de Phone Number [facility] * Comprehensive metabolic panel (01/01/2025 1:54 PM [...] - 01/02/2025 11:11 AM CDT Performed at: [address] [id number] Plant Floor Automation Manager: Chaka Hu PhD, Phone: [phone] us Arti Quinones TITLE MANAGER LAB BLOOD ORDERABLES Fin al Result [facility] - 01 * URINALYSIS, COMPLETE W/REFLEX TO CULTURE (01/01/2025 1:08 PM CDT) Specific [place] 1.022 1.005 - 1.030 [facility] - 01 [...] - 01/02/2025 6:36 AM CDT Performed at: [address] [place] [id number] Plant Floor Automation Manager: Chaka Hu PhD, Phone: [phone] Arti Quinones TITLE MANAGER LAB URINE ORDERABLES Fin al Result Performing Organization Address [facility] de Phone Number [facility] - * Microscopic Examination (01/01/2025 1:08 PM CDT) [...] - 01/02/2025 6:36 AM CDT Performed at: [address] [place] [id number] Plant Floor Automation Manager: Chaka Hu PhD, Phone: [phone] Arti Quinones TITLE MANAGER LAB BLOOD ORDERABLES Fin al Result Performing Organization Address [facility]/ZIP Co de Phone Number [facility] - 01 * Albumin Creatinine Ratio, Urine (01/01/2025 1:08 PM CDT) Pathologist [facility] Creatinine ur 149.5 Not Estab. mg/dL [facility] - 01 Microalbumin, ur 43.0 Not Estab. ug/mL [facility] - 01 Microalbumin/cre at ratio 29 0 - 29 mg/g creat [facility] - 01 Comment: Normal: 0 - 29 Moderately increased: 30 - 300 Severely increased: >300 Urine 01/01/2025 1:08 PM CDT 01/01/2025 Narrative [facility] - 01/02/2025 12:36 PM CDT Performed at: [address] [id number] Plant Floor Automation Manager: Chaka Hu PhD, Phone: [phone] Arti Quinones TITLE MANAGER LAB URINE ORDERABLES Fin al Result [facility] - 01 * POCT glucose (01/01/2025 12:50 PM CDT) Pathologist [facility] Glucose Blood, POC 202 Normal Fasting 70 - 100, Random <200 mg/dL Blood 01/01/2025 12:5 0 PM CDT Arti Quinones NP POINT OF CARE TEST ORDER CAROL ANN Final Result * (ABNORMAL) POCT hemoglobin A1c (01/01/2025 12:50 PM CDT) Pathologist [facility] Hemoglobin A1C, POC 7.3(A) 4.0 - 5.6 % Blood 01/01/2025 12:5 0 PM CDT Arti Quinones NP POINT OF CARE TEST ORDER CAROL ANN Final Result * (ABNORMAL) POCT lipid panel (01/01/2025 12:50 PM CDT) Pathologist [facility] HDL, POC 33(A) >=40 mg/dL Triglycerides, POC [...] Recently Relevant to Health Maintenance Insurance MEDICARE [facility] MEDICARE MEDICARE [facility] MEDICARE SUPPLEMENT MEDICARE [facility]MER[facility] MEDICARE Care Teams Statistical Geneticist Relationship Specialty Start Date End Date Konrad De La Torre MD PCP - General Endocrinology Diabetes & Metabolism 03/21/22
--- OUTSIDE RECORDS SUMMARY | 2025-03-28 09:32 | XMS_ITS | Clinical Summary ---
Author Organization [facility] Address [address] [place] [address] Care Team Providers Care Shipping And Receiving Coordinator Name Role Phone Sigifredo Segovia MD Primary [...] Comments Blood Pressure 116/59 07/29/2019 12:15 PM PRESSURE DISPATCHER Pulse 72 07/29/2019 12:15 PM PRESSURE DISPATCHER Temperature 36.7 C (98.1 F) 07/29/2019 11:19 AM PRESSURE DISPATCHER Respiratory Rate 16 07/29/2019 12:15 PM PRESSURE DISPATCHER Oxygen Saturation 93% 07/29/2019 12:15 PM PRESSURE DISPATCHER Inhaled Oxygen Concentration - - Weight 117.9 kg (260 lb) 07/29/2019 8:12 AM PRESSURE DISPATCHER Height 180.3 cm (5' 11) 07/29/2019 8:12 AM PRESSURE DISPATCHER Body Mass Index 36.26 07/29/2019 8:12 AM PRESSURE DISPATCHER Plan of Treatment Health Maintenance Due Date [...] Vaccine ( - 2023-2 5 season) 2025 Influenza Adult (#1) 2025 Hepatitis A Vaccines Aged Out No long er eligible based on patient's age to complete this topic Meningococcal B Vaccine Aged Out No l onger eligible based on patient's age to complete this topic Meningococcal Vaccine Aged Out No sadaf eb eligible based on patient's age to complete this topic RSV Immunizations Under 20 Months Aged Out No longer eligible based on patient's age to complete this topic Medical Devices Implanted Type Area Brush Maker Machine Device Identifier Shelf Expiration Date Model / Serial / Lot Pump Pump Description:Insulin pump Gas Sf6 Substitute Vitreous - [id number] Implanted:Qty: 1 on 07/29/2019 by Gerald Mckeon MD at [facility] Right: Eye [facility] 06/11/2020 [id number] / / [id number] Insurance MEDICARE [facility] Care Teams Shipping And Receiving Coordinator Relationship Specialty Start Date End Date Sigifredo Segovia MD PCP - General INTERNAL MEDICINE 07/25/19
== END 2025-03-28 09:09 | disposition home or self-care (01) ==
LOC: CHSCARD 09:08
PROVIDERS: PCP Family Medicine; Visit Provider Anesthesiology
DX: I25.10 Atherosclerotic heart disease of native coronary artery without angina pectoris (principal); I10 Essential (primary) hypertension
CPT/HCPCS: 93005

== ENCOUNTER 2025-03-31 01:49 | Day surgery (SDC) | payer MEDICARE, SELFPAY ==
[2025-03-28 08:21] VITALS: BMI 37.8
--- NOTE | 2025-03-28 08:34 | PC.NURSE ---
[facility] has started construction of its new state of the art ER which will open Spring 2026. With this, we anticipate parking may be a challenge for some our surgical patients and families. Parking spaces are limited but are available for all Surgical, obstetrics, and ER patients sharing this lot. If you arrive and find you are having a hard time finding a parking space, please note that we understand the challenges, please drive around the hospital and park near Hospital Entrance 1. When you enter this entrance, you can ask a volunteer to direct or take you back to the surgical waiting area to check in. We appreciate everyone?s understanding of these expected challenges while we build for your future. Report to the Outpatient Waiting Room, entrance under the green pavilion located off [address], at time __08:00am on date ___03/31/25____. Planned Procedure Time: _10:00am .? Time changes happen often and if your time is changed the preop area will call you the afternoon before. - You and your visitor will be asked to self-screen and do not enter if you have any COVID symptoms. Please call surgeon if you need to reschedule. - A mask is optional within the hospital at this time. Patients may have clear liquids (water, carbonated beverages, clear teas, apple juice) until 3 hours prior to surgery with a maximum of 20 ounces. - No food from midnight until time of surgery and no smoking, or chewing tobacco (or any form of nicotine). No chewing gum, candy or mints. (0700am) Take only the following medications with a SIP of water on the morning of surgery: ____Buspirone, Coreg, Duloxetine, Imdur, Pregabalin, Sertraline, Tramadol if needed, Valium if needed, Rescue inhaler Albuteral if needed DO NOT STOP ANY OF YOUR OTHER PRESCRIPTION MEDICATIONS PRIOR TO SURGERY EXCEPT THE FOLLOWING Hold all vitamins and supplements for 3 days per anesthesiologist. Medications to discontinue per physician NONE Date to take last dose NONE Please no make-up, nail indonesian, hairspray, perfume, deodorant, or body powder the day of surgery.? No jewelry (including any body piercings) or valuables the day of surgery, leave them at home.? Please take a shower or bath the night before, or the morning of, surgery with an antibacterial soap.? Wear comfortable, loose fitting clothing.? - Jewelry must be removed prior to entering the operating room.? Rings and piercings that are not removed may be cut off. - The hospital will not accept responsibility for valuables.? - Please leave all valuables, including medications, at home the day of surgery. If you are going home after surgery, a licensed clark driver must drive you home.? - NO public transportation without another adult if you receive anesthesia. - We recommend that an adult stay with you for 24 hours following discharge. - We also recommend that you do not drive, make important decision, drink alcoholic beverages, or take any drugs that were not prescribed by your health care provider for at least 24 hours after your discharge time. Follow any additional instructions given to you from your surgeon. Telephone instructions given to __Patient and asked if any additional questions and then verbalized understanding. Patient advised to call surgeon office or pre surgery nurse liaison [phone] if any additional questions.
--- OUTSIDE RECORDS SUMMARY | 2025-03-31 01:54 | XMS_ITS | Encounter Summary ---
Author Organization [facility] Healthcare Address [address] [place] [address] Care Team Providers Care Blood Bank Coordinator Name Role Phone Eden Morrissey MD Primary Care Provider [phone] Konrad De La Torre MD Primary Care Provider Armani Skinner DO Primary Care Provider Konrad De La Torre MD Primary Care Provider Encounter Details Date Type Department Care Team (Late st Contact Info) Description 12/27/[address] 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 Gender Identity Male 10/21/2021 6:17 PM [...] - Department of Vascular Surgery, Vascular Laboratory [address] [place] [address] Lower Extremity Arterial Doppler Report Patient Name: [...] mmHg Lt Brachial Pressure 126 mmHg Rt INTEGRATED CIRCUIT DESIGN ENGINEER Pressure 110 mmHg Lt INTEGRATED CIRCUIT DESIGN ENGINEER Pressure 123 mmHg Rt DPA Pressure 109 mmHg Lt DPA Pressure 110 mmHg Rt 1st Digit Pressure 89 mmHg Lt 1st Digit Pressure 108 mmHg Rt PT MARCOS Resting 0.85 Lt PT MARCOS Resting 0.95 Rt AT MARCOS Resting 0.84 Lt AT MARCOS Resting 0.85 Rt Digit/Arm Index 0.69 Lt Digit/Arm Index 0.84 Findings: Performing Coat Presser: Meri Loaiza RVT. Janette Vásquez RVT, [facility]. Bilateral All Levels : [...] performed. Electronically Signed By: Breezy Núñez MD [facility] 2018-01-03 10:23:04 CDT CC: CC: Procedure Note Breezy Núñez MD - 01/03/2018 [facility] - Department of Vascular Surgery,Vascular Laboratory [address] [place] [address] Lower Extremity Arterial Doppler Report Patient Name: TAYLOR BARRERA TPatient ID: [id number] : [id number] Date: 01/03/2018 9:49:00 AM Gender: MAccession #: [id number] Tech: Jody Loaiza RVTLocation: Ref.Physician: Michelle MORRISSEY(Cm): BSA: Weight(Kg): Quality: AdequateOrder Physician: EDEN MORRISSEY Procedures: Arterial Report: Bilateral lower extremity arterial Doppler exam at rest. Indications: Claudication of both lower extremities . Bilateral leg pain. Measurements: Right - Left - Measurement Value Normal Range MeasurementValue Normal Range Rt Brachial Pressure 129 mmHg Lt Brachial Brpmfsqx028 mmHg Rt INTEGRATED CIRCUIT DESIGN ENGINEER Pressure 110 mmHg Lt INTEGRATED CIRCUIT DESIGN ENGINEER Ngggyyko668 mmHg Rt DPA Pressure 109 mmHg Lt DPA Atkodjxs516 mmHg Rt 1st Digit Pressure 89 mmHg Lt 1st Digit Suqudcyw078 mmHg Rt PT MARCOS Resting 0.85 Lt PT MARCOS Resting0.95 Rt AT MARCOS Resting 0.84 Lt AT MARCOS Resting0.85 Rt Digit/Arm Index 0.69 Lt Digit/Arm Index0.84 Findings: Performing Coat Presser: Meri Loaiza RVT. Janette Vásquez RVT, RDMS. [...] performed. Electronically Signed By: Breezy Núñez MD [facility] 2018-01-03 10:23:04 CDT CC: CC: us Eden Morrissey MD IMG US PROCEDURES Final Result * US Vein Duplex Lower Extremity Left Limited (12/27/2017 2:45 PM CDT) Anatomical Region Laterality Modality Vascular Left Ultrasound 12/27/2017 2:30 PM CDT Narrative 12/27/2017 4:37 PM CDT [facility] - Department of Vascular Surgery, Vascular Laboratory [address] [place] [address] Lower Extremity Venous Ultrasound Report Patient Name: [...] limb, left Left leg pain. Findings: Performing Coat Presser: Odalis Moncada RVT. Left: Venous Doppler signals [...] performed. Electronically Signed By: Breezy Núñez MD [facility] 2017-12-27 16:37:04 CDT CC: CC: Procedure Note Breezy Núñez MD - 12/27/2017 [facility] - Department of Vascular Surgery,Vascular Laboratory [address] [place] [address] Lower Extremity Venous Ultrasound Report Patient Name: TAYLOR BARRERA TPatient ID: [id number] : 1945 (72y 3m)Study Date: 12/27/2017 2:30:57 PM Gender: MAccession #: [id number] Tech: DBLocation: Ref.Physician: EDEN MORRISSEYHeight(Cm): BSA: Weight(Kg): [...] limb, left Left leg pain. Findings: Performing Coat Presser: Odalis Moncada RVT. Left: Venous Doppler signals [...] performed. Electronically Signed By: Breezy Núñez MD [facility] 2017-12-27 16:37:04 CDT CC: CC: Eden Morrissey MD [facility] PROC[facility] Final Result documented in this [...] limb documented in this encounter Care Teams Blood Bank Coordinator Relationship Specialty Start Date End Date Eden Morrissey MD [address] [address] PCP - General 10/17/16 04/20/21 Konrad De La Torre MD [address] [address] PCP - General Endocrinology Diabetes & Metabolism 04/21/21 02/07/22 Armani Skinner DO [facility] [place] [address] PCP - General Family Medicine 02/08/22 03/20/22 Konrad De La Torre MD [address] [address] PCP - General Endocrinology Diabetes & Metabolism 03/21/22 documented as of this encounter
--- OUTSIDE RECORDS SUMMARY | 2025-03-31 01:54 | XMS_ITS | Clinical Summary ---
Author Organization [facility] Address [address] [place] [address] Care Team Providers Care Statistical Methods Professor Name Role Phone Konrad De La Torre [...] MG) BY MOUTH DAILY 90 tablet 3 Active insulin lispro (HumaLOG, ADMELOG) 100 unit/mL [...] total) by mouth daily 90 tablet 3 Active insulin glargine 100 unit/mL (3 mL) [...] BY MOUTH TWICE DAILY [address] (CYMBALTA) 60 mg capsule TAKE 1 CAPSULE(60 MG) BY MOUTH DAILY 90 capsule 3 025 Active traMADoL (ULTRAM) 50 mg tablet Take [...] episode Assessment & Plan (07/04/2024 2:01 PM HEAD GAUGE UNIT OPERATOR): Stop sertraline as he is already taking [...] Lyrica. Assessment & Plan (07/04/2024 2:02 PM HEAD GAUGE UNIT OPERATOR): Continue current regimen. SCS is in place. [...] medications. Assessment & Plan (06/14/2023 12:24 PM HEAD GAUGE UNIT OPERATOR): Permanent SCS planned with Dr. Torres. Assessment & Plan (02/14/2023 11:43 AM CDT): Continue Lyrica, Cymbalta, tramadol. Follow up with Dr. Torres. Assessment & Plan (11/11/2022 12:05 PM CDT): Refractory to pregabalin, Cymbalta, tramadol. Refer to Dr. Torres for consideration of SCS. Assessment & Plan (08/09/2022 12:48 PM HEAD GAUGE UNIT OPERATOR): Stable on current medications. Not interested in SCS at this time. Assessment & Plan (05/11/2022 12:58 PM HEAD GAUGE UNIT OPERATOR): On tramadol and Lyrica. Add Cymbalta. We [...] today. Assessment & Plan (07/04/2024 2:01 PM HEAD GAUGE UNIT OPERATOR): A1c near goal. Be sure to bolus [...] exam. Assessment & Plan (06/14/2023 12:24 PM HEAD GAUGE UNIT OPERATOR): A1c above goal. Increase basal rate from [...] Units/hr. Assessment & Plan (08/09/2022 12:48 PM HEAD GAUGE UNIT OPERATOR): A1c above goal. Increased basal from MN to 8AM from 1.75 Units/hr to 1.85 Units/hr. Assessment & Plan (05/11/2022 12:57 PM HEAD GAUGE UNIT OPERATOR): A1c slightly above goal. Increase overnight basal [...] today. Assessment & Plan (07/23/2021 10:17 AM HEAD GAUGE UNIT OPERATOR): A1c at goal on current therapy. Labs due today. He will schedule eye exam. Assessment & Plan (04/23/2021 1:32 PM HEAD GAUGE UNIT OPERATOR): At goal on current therapy. Refer to Dr. Shah's group in ophthalmology. Labs current. 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 Essential hypertension, benign 10/04/2018 Assessment & Plan (09/30/2024 12:16 PM CDT): At goal on current therapy. Assessment & Plan (07/04/2024 2:01 PM HEAD GAUGE UNIT OPERATOR): At goal on current therapy. Assessment & Plan (03/28/2024 11:38 AM CDT): At goal on current therapy. Assessment & Plan (12/13/2023 1:09 PM CDT): BP low-normal with orthostasis. Decrease lisinopril dose to 10 mg daily. Assessment & Plan (09/12/2023 4:07 PM CDT): At goal on current therapy. Assessment & Plan (06/14/2023 12:23 PM HEAD GAUGE UNIT OPERATOR): Still having orthostasis and BP is low-normal. Halve carvedilol to 12.5 mg BID. Assessment & Plan (02/14/2023 11:42 AM CDT): Due to ongoing low-normal blood pressures and orthostatic symptoms, will reduce lisinopril dose to 5 mg daily. Assessment & Plan (11/11/2022 12:04 PM CDT): At goal on current therapy. Assessment & Plan (08/09/2022 12:47 PM HEAD GAUGE UNIT OPERATOR): BP still low-normal and he is lightheaded. Halve dose of lisinopril to 10 mg daily. Assessment & Plan (05/11/2022 12:57 PM HEAD GAUGE UNIT OPERATOR): At goal on current therapy. Assessment & Plan (02/08/2022 12:35 PM CDT): BP low with associated lightheadedness. Cut lisinopril dose in half to 20 mg daily. Assessment & Plan (10/21/2021 9:48 PM CDT): At goal on current therapy. Assessment & Plan (07/23/2021 10:16 AM HEAD GAUGE UNIT OPERATOR): At goal on current therapy. Assessment & Plan (04/23/2021 1:32 PM HEAD GAUGE UNIT OPERATOR): At goal on current therapy. Mixed hyperlipidemia 10/04/2018 Assessment & Plan (09/30/2024 12:16 PM CDT): At goal on current therapy. Assessment & Plan (07/04/2024 1:25 PM HEAD GAUGE UNIT OPERATOR): At goal on current therapy. Assessment & Plan (03/28/2024 12:24 PM CDT): At goal on current therapy. Assessment & Plan (12/13/2023 1:09 PM CDT): Due for lipid check. He is taking atorvastatin 80 mg daily. Assessment & Plan (06/14/2023 12:23 PM HEAD GAUGE UNIT OPERATOR): At goal on current therapy. Assessment & Plan (02/14/2023 11:42 AM CDT): At goal on current therapy. Assessment & Plan (11/11/2022 12:04 PM CDT): At goal on current therapy. Assessment & Plan (08/09/2022 12:47 PM HEAD GAUGE UNIT OPERATOR): At goal on current therapy. Assessment & Plan (05/11/2022 12:57 PM HEAD GAUGE UNIT OPERATOR): At goal on current therapy. Assessment & Plan (02/08/2022 12:35 PM CDT): At goal on current therapy. Assessment & Plan (10/21/2021 9:48 PM CDT): LDL not at goal. Increase Lipitor to 80 mg daily. Assessment & Plan (07/23/2021 10:16 AM HEAD GAUGE UNIT OPERATOR): At goal on current therapy. Assessment & Plan (04/23/2021 1:33 PM HEAD GAUGE UNIT OPERATOR): At goal on current therapy. Resolved Problems Problem Noted Date Diagnosed Date Resolved Date Type 1 diabetes mellitus without complication 07/08/19 21 01/01/2025 Medicare annual wellness visit, initial 07/08/2020 01/01/2025 Encounters Date Type Department Care Team Description 01/02/2025 Results Follow-Up [facility] [address] [place] [phone] Arti Quinones, JAZZMINE Albumin Creatinine Ratio, Urine, PSA screen, Thyroid Function [place], Additional followed-up results: 5 01/01/2025 1:15 PM CDT Office Visit [facility] [address] [place] [phone] Arti Quinones, JAZZMINE Type 1 diabetes mellitus [...] on file Legal Sex Male 2:04 AM HEAD GAUGE UNIT OPERATOR Gender Identity Male 10/21/2021 6:17 [...] Completed 01/30/2018 Medical Devices Implanted Type Area Item Processing Clerk Device Identifier Shelf Expiration Date Model / Serial / Lot [employer]onic [employer] Vectris 5mm 60cm 1x8 Electrode Mri Lead Neurostimulator [id number] - [id number] Implanted:Qty: 1 on 08/24/2023 by Dashawn Torres MD at [facility] N/A: Back [employer] 08/01/2027 [id number] / / [id number] Med[employer] Vectris 5mm 60cm 1x8 Electrode Mri Lead Neurostimulator [id number] - [id number] Implanted:Qty: 1 on 08/24/2023 by Dashawn Torres MD at [facility] N/A: Back [employer] 08/01/2027 [id number] / / [id number] [employer] Neurostimulator Implantable Chronic Pain [id number] - [id number] - [id number] Implanted:Qty: 1 on 08/24/2023 by Dashawn Torres MD at [facility] N/A: Back [employer] Inc 06/08/2024 [id number] / [id number] / [employer] Envelope Absrb 2.7x2.5in Antibacterial Tyrx Medium Strl [id number] - [id number] Implanted:Qty: 1 on 08/24/2023 by Dashawn Torres MD at [facility] N/A: Back [employer] 05/23/2024 [id number] / / [id number] Procedures Procedure Name Priority Date/Time Associated Diagnosis [...] with hyperglycemia (HCC) Mixed hyperlipidemia POCT GLUCOSE 78069 Routine 01/01/2025 12:50 PM CDT Type 1 diabetes mellitus with hyperglycemia (HCC) Mixed hyperlipidemia CT ABDOMEN PELVIS W CONTRAST Schedule Routine, Read Routine (OP Routine) 01/30/2018 10:51 AM CDT Leg swelling from Last 3 Months or Most Recently Relevant to Health Maintenance Results * Thyroid Function [place] (01/01/2025 1:54 PM CDT) TSH 1.680 0.450 - 4.500 uIU/mL [facility] - 01 Comment: No apparent thyroid disorder. Additional testing not indicated. In rare instances, Secondary Hypothyroidism as well as Subclinical Hypothyroidism have been reported in some patients with normal TSH values. Blood 01/01/2025 1:54 PM CDT 01/01/2025 Narrative [facility] - 01/02/2025 12:10 PM CDT Performed at: [address] [place] [id number] Coder Operator: Chaak Hu PhD, Phone: [phone] Arti Quinones SYNTHETIC CLOTH BINDING CUTTER LAB BLOOD ORDERABLES Fin al Result [facility] - 01 * PSA screen (01/01/2025 1:54 PM CDT) Pathologist [facility] PSA 0.5 0.0 - 4.0 ng/mL [facility] - 01 Comment: Padmaja ECLIA methodology. According to the [place] [employer], Serum PSA should decrease and [...] - 01/02/2025 12:10 PM CDT Performed at: [address] [place] [id number] Coder Operator: Chaka Hu PhD, Phone: [phone] us Arti Quinones SYNTHETIC CLOTH BINDING CUTTER LAB BLOOD ORDERABLES Fin al Result [facility] - 01 * (ABNORMAL) CBC with auto differential (01/01/2025 1:54 PM CDT) Pathologist [facility] WBC 12.0(H) 3.4 - 10.8 x10E3/uL [facility] [...] - 01/02/2025 5:36 AM CDT Performed at: [address] [id number] Coder Operator: Chaka Hu PhD, Phone: [phone] Arti Quinones SYNTHETIC CLOTH BINDING CUTTER LAB BLOOD ORDERABLES Fin al Result Performing Organization Address [facility] de Phone Number [facility] - * (ABNORMAL) Vitamin D 25 hydroxy (01/01/2025 1:54 PM CDT) Vitamin D, 25-Hydroxy 25.3(L) 30.0 - 100.0 ng/mL [facility] - Comment: Vitamin D deficiency has been defined by the [place] of Medicine and an Endocrine Society practice guideline as a level of serum 25-OH vitamin D less than 20 ng/mL (1,2). The Endocrine Society went on to further define vitamin D insufficiency as a level between 21 and 29 ng/mL (2). 1. IOM ([place] of Medicine). 2010. Dietary reference intakes for calcium and D. [place]: The National Academies Press. 2. Colton MF, Barb NC, Ethel FONTENOT, et al. Evaluation, treatment, and prevention of vitamin D deficiency: an Endocrine Society clinical practice guideline. JCEM. 2010; 96(7):1911-30. Blood 01/01/2025 1:54 PM CDT 01/01/2025 Narrative [facility] - 01/02/2025 9:36 AM CDT Performed at: [address] [id number] Coder Operator: Chaka Hu PhD, Phone: [phone] Arti Quinones SYNTHETIC CLOTH BINDING CUTTER LAB BLOOD ORDERABLES Fin al Result Performing Organization Address [facility] Co de Phone Number [facility] - * Comprehensive metabolic panel (01/01/2025 [...] 11:11 AM CDT Performed at: 01 - [address] [id number] Coder Operator: Chaka Hu PhD, Phone: [phone] us Arti Quinones SYNTHETIC CLOTH BINDING CUTTER LAB BLOOD ORDERABLES Fin al Result [facility] - 01 * URINALYSIS, COMPLETE W/REFLEX TO CULTURE (01/01/2025 1:08 PM CDT) Specific [place] 1.022 1.005 - 1.030 [facility] - 01 [...] - 01/02/2025 6:36 AM CDT Performed at: [address] [id number] Coder Operator: Chaka Hu PhD, Phone: [phone] us Arti Quinones SYNTHETIC CLOTH BINDING CUTTER LAB URINE ORDERABLES Fin al Result [facility] [...] - 01/02/2025 6:36 AM CDT Performed at: [address] [id number] Coder Operator: Chaka Hu PhD, Phone: [phone] Arti Quinones SYNTHETIC CLOTH BINDING CUTTER LAB BLOOD ORDERABLES Fin al Result Performing Organization Address City/[facility]/ZIP Co de Phone Number [facility] - 01 * Albumin Creatinine [...] - 01/02/2025 12:36 PM CDT Performed at: [address] [place] [id number] Coder Operator: Chaka Hu PhD, Phone: [phone] Arti Quinones SYNTHETIC CLOTH BINDING CUTTER LAB URINE ORDERABLES Fin al Result Performing Organization Address [facility] Co de Phone Number [facility] - 01 * POCT glucose (01/01/2025 [...] Recently Relevant to Health Maintenance Insurance [facility]IC[facility] MEDICARE MEDICARE [facility] MEDICARE SUPPLEMENT MEDICARE [facility] MEDICARE Care Teams Statistical Methods Professor Relationship Specialty Start Date End Date Konrad D eLa Torre MD PCP - General Endocrinology Diabetes & Metabolism 03/21/22
--- OUTSIDE RECORDS SUMMARY | 2025-03-31 01:54 | XMS_ITS | Encounter Summary ---
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 Gender Identity Male 10/21/2021 6:17 PM CDT [...] on filedocumented in this encounter Care Teams Driver Examiner Relationship Specialty Start Date End Date Sigifredo Segovia MD [id number] [address] PCP - General 10/17/16 04/20/21 Konrad De La Torre MD [address] [facility] [address] [address] PCP - General Endocrinology Diabetes & Metabolism 04/21/21 02/07/22 Armani Skinner DO [address] [place] [address] PCP - General Family Medicine 02/08/22 03/20/22 Konrad De La Torre MD [address] [facility] [address] [address] PCP - General Endocrinology Diabetes & Metabolism 03/21/22 documented as of this encounter
--- NOTE | 2025-03-31 07:17 | WPDHPUPDATE1 ---
History and Physical Update Update Date/Time: 03/31/25 07:17 History and Physical has been reviewed, including an updated exam of the patient. There are NO changes in the patient's condition. Risks, benefits, and alternatives have been discussed and questions answered. Patient agrees to proceed with procedure.
[2025-03-31 08:44] VITALS: BP 142/58; PULSE 78; TEMP 36.4; O2SAT 95; BMI 38.9
[2025-03-31] MEDS: ACETAMINOPHEN 500 MG TABLET 1000 MG PO (08:46)
[2025-03-31] MEDS: KETOROLAC 15 MG/ML VIAL (*BKC) IV PUSH (08:46)
[2025-03-31] MEDS: LACTATED RINGERS 1,000 ML 30 ML IV CONT (08:46)
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
[2025-03-31] MEDS: ceFAZolin 3 GM/D5W 100 ML 100 ML IVPB (09:22)
--- NOTE | 2025-03-31 09:50 | S_PTH ---
PATIENT: Bacilio Penn LOC: [facility] U#:[id number] AGE/SX: 79/M ROOM: RE03/31/[address]: José Nice MD : 1945 BED: DIS: 03/31/2025 SPEC #: [id number] RECD: 03/31/25 13:30 STATUS: DANIA REQ #: [id number] JENNIFER: 03/31/25 09:[address]: José Nice DEPT: [facility] Surgical RECD BY: Oanh Kirk ENTERED: 03/31/25 13:31 SP TYPE: Surgical OTHR DR: Armani Skinner DO Tissues: A - Toe Procedures: Hematoxylin and Eosin Stain Gross and Microscopic Level 4 Decalcification
[2025-03-31 10:11] VITALS: BP 104/48; PULSE 73; RESP 12; O2SAT 100
--- NOTE | 2025-03-31 10:26 | P.OP_ITS ---
Procedure Note - Detailed Date of Procedure 03/31/25 Pre-op Diagnosis right hallux open fx Post-op Diagnosis Same Procedure Performed Right hallux amputation interphalangeal Surgeon José Nice MD Talent Management Manager 1st team assistant Anesthesia MAC Indications 79-year-old who injured his right great toe and sustained an open fracture dislocation through the interphalangeal joint. Attempted reduction failed with re displacement of the joint and hallux. Patient desires amputation Findings Dislocation of the interphalangeal joint. Disruption of soft tissue dorsal to the joint with communication to the Bone and Joint. Description of Procedure Patient identified in the preoperative holding. Informed consent given. Operative extremity marked. Patient received intravenous antibiotics. Patient brought to the operating room where underwent sedation anesthetic by anesthesia team. Positioned supine on operating room table. Time-out performed confirming the patient, site of the surgery and the plan. Right foot prepped and draped in usual sterile surgical fashion using Betadine prep solution. There was an ulcer over the dorsum of the hallux which revealed full-thickness necrosis with exposed bone of the proximal phalanx. No ability to heal the wound and no soft tissue coverage of the bone, amputation of the hallux was indicated. Fifteen blade knife used to make fishmouth shaped incision at the base of the distal phalanx hallux. Hemostasis controlled with electrocautery. Joint incised circumferentially with a 15 blade knife and hallux removed and passed off the table. Thorough irrigation done. Articular surface of the proximal phalanx removed with a rongeur and smoothed. Wound thoroughly irrigated again. Wound closed with 2 0 Vicryl interrupted suture for the deep tissue, 3 O Monocryl interrupted suture for the subcutaneous tissue and 4 O nylon interrupted sutures for the skin. Sterile dressings applied. Patient awoke from anesthesia and taken to the recovery room in stable condition. All sponge needle and instrument counts correct at the end the case. Estimated Blood Loss 2 Tourniquet Time Total Tourniquet Time: 30 Drains No Packing No Pathology Yes (Right hallux) Complications None Condition Stable Disposition PACU [facility] Billing Surgery - Charge Forward: Surgery Billing ([id number])
[2025-03-31 10:40] VITALS: BP 120/48; PULSE 64; RESP 14; O2SAT 98
[2025-03-31 11:10] VITALS: BP 91/47; PULSE 70; RESP 14
[2025-03-31 11:40] VITALS: BP 115/44; PULSE 62; RESP 14
[2025-03-31 11:55] VITALS: BP 116/48; PULSE 65; RESP 14
== END 2025-03-31 12:00 | disposition home or self-care (01) ==
PROVIDERS: PCP Family Medicine; Visit Provider Orthopaedic Surgery
PROC: (CPT 28825; principal; 2025-03-31 10:00)
DX: S92.421B Displaced fracture of distal phalanx of right great toe, initial encounter for open fracture (principal); L97.414 Non-pressure chronic ulcer of right heel and midfoot with necrosis of bone; E11.65 Type 2 diabetes mellitus with hyperglycemia; N40.0 Benign prostatic hyperplasia without lower urinary tract symptoms; G25.81 Restless legs syndrome; I10 Essential (primary) hypertension; E78.00 Pure hypercholesterolemia, unspecified; E11.40 Type 2 diabetes mellitus with diabetic neuropathy, unspecified; G47.33 Obstructive sleep apnea (adult) (pediatric); I95.9 Hypotension, unspecified; I25.2 Old myocardial infarction; F32.A Depression, unspecified; W06.XXXA Fall from bed, initial encounter; E66.9 Obesity, unspecified; Z68.38 Body mass index [BMI] 38.0-38.9, adult; Z79.82 Long term (current) use of aspirin; Z79.51 Long term (current) use of inhaled steroids; Z79.891 Long term (current) use of opiate analgesic; Z79.4 Long term (current) use of insulin; Z98.890 Other specified postprocedural states; Z96.41 Presence of insulin pump (external) (internal); Z95.5 Presence of coronary angioplasty implant and graft; Z87.891 Personal history of nicotine dependence; Z82.49 Family history of ischemic heart disease and other diseases of the circulatory system
CPT/HCPCS: 28825; 82948; 88305; 88311; 97161; A9270; J0690; J1885; J2003; J2250; J2371; J2704; J7030; J7120

== ENCOUNTER 2025-04-21 08:13 | Outpatient (CLI) | payer MEDICARE, SELFPAY ==
--- OUTSIDE RECORDS SUMMARY | 2011-04-21 06:30 | XMS_ITS | Continuity of Care Document ---
Author Organization [facility], L TD Address [facility] [place] [address] Phone Care Team Providers Care Cage Supervisor Name Role Phone Unavailable Unavailable Unavailable Allergies, Adverse Reactions, Alerts Substance Reaction Status Criticality No Known allergies Medications Medication Instructions Dosage Effective Dates (start - stop) Status Comments INSULIN PUMP (unknown strength) Not Available - Active ISOSORBIDE MONONITRATE (unknown strength) Not Available - Active HYDROCHLOROTHIAZIDE (unknown strength) Not Available - Active CONZIP (unknown strength) Not Available - Active ATENOLOL (unknown strength) Not Available - Active LISINOPRIL (unknown strength) Not Available - Active TRAZODONE HCL (unknown strength) Not Available - Active STANBACK ANALGESIC (unknown strength) Not Available - Active FLOMAX (unknown strength) Not Available - Active WELCHOL (unknown strength) Not Available - Active LOVASTATIN (unknown strength) Not Available - Active LORAZEPAM (unknown strength) Not Available - Active GABAPENTIN (unknown strength) Not Available - Active Procedures Procedure Date EYE EXAM ESTABLISHED PATIENT, MEDICAL No REFRACTION UPDATE Scan Image/ OCT, Glaucoma EYE EXAM ESTABLISHED PATIENT, MEDICAL No REFRACTION UPDATE ESCOBEDO VISUAL FIELD, BI-LATERAL Advance Directives Directive Yes / No Effective Date File Name No Information Encounters Encounter Description Practice Location Reason(s) For Visit Diagnoses Date Provider Providers Copied on Encounter [facility], [facility], [address] [place] [address], [id number] , tel:[phone] [facility] No Information 0-201 1 No Information [facility], [address] [place] [address], [id number] , tel:[phone] [facility] Diabetes Mellitus Type 2, UncomplicatedLens replaced by other meansMacular puckering of retina 1 No Information Referring Provider: Rinku Paz I, [address] [place] [address], [id number] . tel:[phone], [id number] , tel: [phone] [facility] No Information 1 No Information [facility], [address] [place] [address], [id number] , tel:[phone] [facility] No Information 0 Jackson Dobbs. [address] [place] [address], [id number], . tel:[phone] Referring Provider: Rinku Paz I, [address] [place] [address], [id number] . tel:[phone] Family History Family Member Type Diagnosis Age At Onset Problem (finding) No Family history of As thma Problem (finding) No Family history of Re tinal Disorders Mother Problem (finding) diabetes melli tus in first degree relative Problem (finding) No Family history of Em physema Parents Problem (finding) HBP Problem (finding) No Family hist ory of Macular Degeneration Mother Problem (finding) diabetes melli tus in first degree relative Problem (finding) No Family history of St roke Problem (finding) No Family history of Re spiratory Disease Parents Problem (finding) Heart Disease Payers Payer name Insurance type Covered libertarian ID Authoriza tion(s) Medicare [place] [id number] [facility] [id number] Social History Type Description Quantity Date Captured Comments Sex Male Smoking Status No Information Chief Complaint And Reason For Visit No Information Reason For Referral Reason For Referral No Information History Of Present Illness Encounter Date Complaint History Of Prese nt Illness No Information Functional Status Date Functional Assessmen t No Information Instructions Date Instruction Additional Infor nidia - Return in 6 months with [facility] fransisca r Aristides JIANG Gonio Related to ERM Diabetic Monitor OU Condition: established, stable. IOL OU Condition: established, stable. ERM OD Condition: established, stable. - No problems from the diabetes. ERM present OD, which will decrease the V/A some. Update glasses. Still suspicious for glaucoma, so will continue to monitor. Related to ERM Assessments Type Assessment Date No Information Patient Care Teams Name Effective Dates (start - stop) Status Members No Information
--- NOTE | ~2025-04-21 | XR_ITS ---
EXAMINATION: XR foot RT min 3V, 04/21/2025 8:17 MACHINE SHOP INSPECTOR HISTORY: Z47.89 - Encounter for other orthopedic aftercare COMPARISON: Comparison 03/26/2025. Findings: There are destructive changes noted involving the distal aspect of the distal phalanx first digit and the distal aspect of the proximal phalanx first digit which may be postoperative however distinction from osteomyelitis is limited, clinical correlation is required. No significant degenerative changes. Soft tissues unremarkable. Impression: Please see above Reviewed, dictated and finalized at location P. INE SHOP INSPECTOR Impression: Please see above
--- OUTSIDE RECORDS SUMMARY | 2025-04-21 08:17 | XMS_ITS | Encounter Summary ---
Author Organization [facility] Address [address] [place] [address] Phone Care Team Providers Care Systems Development Consultant Name Role Phone Sigifredo Segovia MD Primary Care Provider [phone] Konrad De La Torre MD Primary Care [...] on file Legal Sex Male 2:04 AM LOSS CONTROL REPRESENTATIVE Gender Identity Male 10/21/2021 6:17 PM CDT [...] on filedocumented in this encounter Care Teams Systems Development Consultant Relationship Specialty Start Date End Date Sigifredo Segovia MD [address] [address] PCP - General 10/17/16 04/20/21 Konrad De La Torre MD [address] [address] PCP - General Endocrinology Diabetes & Metabolism 04/21/21 02/07/22 Armani Skinner DO [address] [place] [address] PCP - General Family Medicine 02/08/22 03/20/22 Konrad De La Torre MD [address] [address] PCP - General Endocrinology Diabetes & Metabolism 03/21/22 documented as of this encounter
--- OUTSIDE RECORDS SUMMARY | 2025-04-21 08:17 | XMS_ITS | Clinical Summary ---
Author Organization [facility] Address [address] [place] [address] Care Team Providers Care Accounting Professor Name Role Phone Sigifredo Segovia MD Primary [...] Comments Blood Pressure 116/59 07/29/2019 12:15 PM MOLD PULLER Pulse 72 07/29/2019 12:15 PM MOLD PULLER Temperature 36.7 C (98.1 F) 07/29/2019 11:19 AM MOLD PULLER Respiratory Rate 16 07/29/2019 12:15 PM MOLD PULLER Oxygen Saturation 93% 07/29/2019 12:15 PM MOLD PULLER Inhaled Oxygen Concentration - - Weight 117.9 kg (260 lb) 07/29/2019 8:12 AM MOLD PULLER Height 180.3 cm (5' 11) 07/29/2019 8:12 AM MOLD PULLER Body Mass Index 36.26 07/29/2019 8:12 AM MOLD PULLER Plan of Treatment Health Maintenance Due Date Last Done Comments Hepatitis C 09/21/1963 DTaP, Tdap and Td Vaccines ( 1 - Tdap) 1964 Pneumococcal Vaccine: 50+ Ye ars (1 of 1 - PCV) 09/21/1995 Zoster Vaccines (1 of 2) 09/21/1995 Annual Medicare Wellness Visit 2010 RSV Immunization or 60+ Years (1 - 1-dose 75+ series) 2020 COVID-19 Vaccine ( - 2024-2 6 season) 2025 Influenza Adult (#1) 2025 Hepatitis [...] this topic Medical Devices Implanted Type Area Rapid Transit Operator Device Identifier Shelf Expiration Date Model / Serial / Lot Pump Pump Description:Insulin pump Gas Sf6 Substitute Vitreous - [id number] Implanted:Qty: 1 on 07/29/2019 by Gerald Mckeon MD at [facility] Right: Eye [employer] 06/11/2020 [id number] / / [id number] Insurance MEDICARE [facility] Care Teams Accounting Professor Relationship Specialty Start Date End Date Sigifredo Segovia MD PCP - General INTERNAL MEDICINE 07/25/19
--- OUTSIDE RECORDS SUMMARY | 2025-04-21 08:17 | XMS_ITS | Encounter Summary ---
Author Organization [facility] Address [address] [place] [address] Care Team Providers Care Segment Block Layer Name Role Phone Eden Morrissey MD Primary Care Provider [phone] Konrad De La Torre MD Primary Care Provider Armani Skinner DO Primary Care Provider Konrad De La Torre MD Primary Care Provider Encounter Details Date Type Department Care Team (Late st Contact Info) Description 12/27/2017 Community Orders [facility] EpicCare Link Eden Morrissey MD [address] [facility] [address] [place] [address] Localized swelling, mass and lump, lower limb, left (Primary Dx); Claudication of both lower extremities; Bilateral leg pain; Left leg pain Social History Tobacco Use Types Packs/Day Years Used Date Smoking Tobacco: Former Sex and Gender Information Value Date Recorded Sex Assigned at Not on file Legal 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 Gender Identity Male 10/21/2021 6:17 PM CDT [...] - Department of Vascular Surgery, Vascular Laboratory [address] [place] [address] Lower Extremity Arterial Doppler Report Patient Name: [...] mmHg Lt Brachial Pressure 126 mmHg Rt FUR TRIMMER Pressure 110 mmHg Lt FUR TRIMMER Pressure 123 mmHg Rt DPA Pressure 109 mmHg Lt DPA Pressure 110 mmHg Rt 1st Digit Pressure 89 mmHg Lt 1st Digit Pressure 108 mmHg Rt PT MARCOS Resting 0.85 Lt PT MARCOS Resting 0.95 Rt AT MARCOS Resting 0.84 Lt AT MARCOS Resting 0.85 Rt Digit/Arm Index 0.69 Lt Digit/Arm Index 0.84 Findings: Performing Spanish Tutor: Meri Loaiza RVT. Janette Vásquez RVT, [facility]. Bilateral All Levels : The bilateral common [...] performed. Electronically Signed By: Breezy Núñez MD [facility] 2018-01-03 10:23:04 CDT CC: CC: Procedure Note Breezy Núñez MD - 01/03/2018 [facility] - Department of Vascular Surgery,Vascular Laboratory [address] [place] [address] Lower Extremity Arterial Doppler Report Patient Name: TAYLOR BARRERA TPatient ID: [id number] : [id number] Date: 01/03/2018 9:49:00 AM Gender: MAccession #: [id number] Tech: Jody Loaiza RVTLocation: Ref.Physician: Michelle MORRISSEY(Cm): BSA: Weight(Kg): Quality: AdequateOrder Physician: EDEN MORRISSEY Procedures: Arterial Report: Bilateral lower extremity arterial Doppler exam at rest. Indications: Claudication of both lower extremities . Bilateral leg pain. Measurements: Right - Left - Measurement Value Normal Range MeasurementValue Normal Range Rt Brachial Pressure 129 mmHg Lt Brachial Gkcdfzsj768 mmHg Rt FUR TRIMMER Pressure 110 mmHg Lt FUR TRIMMER Qowwxysm158 mmHg Rt DPA Pressure 109 mmHg Lt DPA Udglzucf986 mmHg Rt 1st Digit Pressure 89 mmHg Lt 1st Digit Jqhuxdyw984 mmHg Rt PT MARCOS Resting 0.85 Lt PT MARCOS Resting0.95 Rt AT MARCOS Resting 0.84 Lt AT MARCOS Resting0.85 Rt Digit/Arm Index 0.69 Lt Digit/Arm Index0.84 Findings: Performing Spanish Tutor: Meri Loaiza RVT. Janette Vásquez RVT, RDMS. [...] performed. Electronically Signed By: Breezy Núñez MD [facility] 2018-01-03 10:23:04 CDT CC: CC: us Eden Morrissey MD IMG US PROCEDURES Final Result * US Vein Duplex Lower Extremity Left Limited (12/27/2017 2:45 PM CDT) Anatomical Region Laterality Modality Vascular Left Ultrasound 12/27/2017 2:30 PM CDT Narrative 12/27/2017 4:37 PM CDT [facility] - Department of Vascular Surgery, Vascular Laboratory [address] [place] [address] Lower Extremity Venous Ultrasound Report Patient Name: [...] limb, left Left leg pain. Findings: Performing Spanish Tutor: Odalis Moncada RVT. Left: Venous Doppler signals [...] performed. Electronically Signed By: Breezy Núñez MD [facility] 2017-12-27 16:37:04 CDT CC: CC: Procedure Note Breezy Núñez MD - 12/27/2017 [facility] - Department of Vascular Surgery,Vascular Laboratory [address] [place] [address] Lower Extremity Venous Ultrasound Report Patient Name: TAYLOR BARRERA TPatient ID: [id number] : 1945 (72y 3m)Study Date: 12/27/2017 2:30:57 PM Gender: MAccession #: [id number] Tech: DBLocation: Ref.Physician: EDEN MORRISSEYHeight(Cm): BSA: Weight(Kg): [...] limb, left Left leg pain. Findings: Performing Spanish Tutor: Odalis Moncada RVT. Left: Venous Doppler signals [...] performed. Electronically Signed By: Breezy Núñez MD [facility] 2017-12-27 16:37:04 CDT CC: CC: Eden Morrissey MD [facility] PROCEDURES Final Result documented in [...] limb documented in this encounter Care Teams Segment Block Layer Relationship Specialty Start Date End Date Eden Morrissey MD [address] [address] PCP - General 10/17/16 04/20/21 Konrad De La Torre MD [address] [address] PCP - General Endocrinology Diabetes & Metabolism 04/21/21 02/07/22 Armani Skinner DO [facility] [place] [address] PCP - General Family Medicine 02/08/22 03/20/22 Konrad De La Torre MD [address] [address] PCP - General Endocrinology Diabetes & Metabolism 03/21/22 documented as of this encounter
--- OUTSIDE RECORDS SUMMARY | 2025-04-21 08:18 | XMS_ITS | Clinical Summary ---
Author Organization [facility] Address [address] [place] [address] Care Team Providers Care Rn Angiography Name Role Phone Konrad De La Torre [...] needed for pain 180 tablet 025 Active traMADoL (ULTRAM) 50 mg tablet Take 1 tablet (50 mg total) by mouth every 4 (four) hours as needed for pain 180 tablet 025 2024 Discontinued Active Problems Problem Noted Date Diagnosed Date Balance disorder 04/04/2025 Assessment & Plan (04/04/2025 8:53 PM CDT): Due to neuropathy. PT referral entered. Vitamin D deficiency 04/04/2025 Assessment & Plan (04/04/2025 8:54 PM CDT): Start D3 1000 international units daily. Dermatitis 01/01/2025 Assessment & Plan (01/01/2025 1:15 [...] episode Assessment & Plan (07/04/2024 2:01 PM VISUAL MERCHANDISING COORDINATOR): Stop sertraline as he is already taking Cymbalta for nerve pain. Assessment & Plan (03/28/2024 12:26 PM CDT): Decrease sertraline to 50 mg daily, especially since already on Cymbalta. Lumbar radiculitis 01/31/2023 Painful diabetic neuropathy 01/03/2023 Assessment & Plan (04/04/2025 8:53 PM CDT): Continue current pain regimen. 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 We discussed proper foot care. He is following with orthopedics and I recommended that he see a document image technician for ongoing care after the foot has healed. Assessment & Plan (09/30/2024 12:17 PM CDT): Due to worsening pain, will increase tramadol to 6 pills per day. Continue Cymbalta and Lyrica. Assessment & Plan (07/04/2024 2:02 PM VISUAL MERCHANDISING COORDINATOR): Continue current regimen. SCS is in place. [...] medications. Assessment & Plan (06/14/2023 12:24 PM VISUAL MERCHANDISING COORDINATOR): Permanent SCS planned with Dr. Torres. Assessment & Plan (02/14/2023 11:43 AM CDT): Continue Lyrica, Cymbalta, tramadol. Follow up with Dr. Torres. Assessment & Plan (11/11/2022 12:05 PM CDT): Refractory to pregabalin, Cymbalta, tramadol. Refer to Dr. Torres for consideration of SCS. Assessment & Plan (08/09/2022 12:48 PM VISUAL MERCHANDISING COORDINATOR): Stable on current medications. Not interested in SCS at this time. Assessment & Plan (05/11/2022 12:58 PM VISUAL MERCHANDISING COORDINATOR): On tramadol and Lyrica. Add Cymbalta. We [...] mellitus with hyperglycemia 04/12 Assessment & Plan (04/04/2025 8:52 PM CDT): A1c at goal on current therapy. Continue routine eye exams. Assessment & Plan (01/01/2025 1:09 PM CDT): [...] today. Assessment & Plan (07/04/2024 2:01 PM VISUAL MERCHANDISING COORDINATOR): A1c near goal. Be sure to bolus [...] exam. Assessment & Plan (06/14/2023 12:24 PM VISUAL MERCHANDISING COORDINATOR): A1c above goal. Increase basal rate from [...] Units/hr. Assessment & Plan (08/09/2022 12:48 PM VISUAL MERCHANDISING COORDINATOR): A1c above goal. Increased basal from MN to 8AM from 1.75 Units/hr to 1.85 Units/hr. Assessment & Plan (05/11/2022 12:57 PM VISUAL MERCHANDISING COORDINATOR): A1c slightly above goal. Increase overnight basal [...] today. Assessment & Plan (07/23/2021 10:17 AM VISUAL MERCHANDISING COORDINATOR): A1c at goal on current therapy. Labs due today. He will schedule eye exam. Assessment & Plan (04/23/2021 1:32 PM VISUAL MERCHANDISING COORDINATOR): At goal on current therapy. Refer to Dr. Shah's group in ophthalmology. Labs current. 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 Essential hypertension, benign 10/04/2018 Assessment & Plan (04/04/2025 8:51 PM CDT): At goal on current therapy. Assessment & Plan (09/30/2024 12:16 PM CDT): At goal on current therapy. Assessment & Plan (07/04/2024 2:01 PM VISUAL MERCHANDISING COORDINATOR): At goal on current therapy. Assessment & Plan (03/28/2024 11:38 AM CDT): At goal on current therapy. Assessment & Plan (12/13/2023 1:09 PM CDT): BP low-normal with orthostasis. Decrease lisinopril dose to 10 mg daily. Assessment & Plan (09/12/2023 4:07 PM CDT): At goal on current therapy. Assessment & Plan (06/14/2023 12:23 PM VISUAL MERCHANDISING COORDINATOR): Still having orthostasis and BP is low-normal. Halve carvedilol to 12.5 mg BID. Assessment & Plan (02/14/2023 11:42 AM CDT): Due to ongoing low-normal blood pressures and orthostatic symptoms, will reduce lisinopril dose to 5 mg daily. Assessment & Plan (11/11/2022 12:04 PM CDT): At goal on current therapy. Assessment & Plan (08/09/2022 12:47 PM VISUAL MERCHANDISING COORDINATOR): BP still low-normal and he is lightheaded. Halve dose of lisinopril to 10 mg daily. Assessment & Plan (05/11/2022 12:57 PM VISUAL MERCHANDISING COORDINATOR): At goal on current therapy. Assessment & Plan (02/08/2022 12:35 PM CDT): BP low with associated lightheadedness. Cut lisinopril dose in half to 20 mg daily. Assessment & Plan (10/21/2021 9:48 PM CDT): At goal on current therapy. Assessment & Plan (07/23/2021 10:16 AM VISUAL MERCHANDISING COORDINATOR): At goal on current therapy. Assessment & Plan (04/23/2021 1:32 PM VISUAL MERCHANDISING COORDINATOR): At goal on current therapy. Mixed hyperlipidemia 10/04/2018 Assessment & Plan (04/04/2025 8:51 PM CDT): At goal on current therapy. Assessment & Plan (09/30/2024 12:16 PM CDT): At goal on current therapy. Assessment & Plan (07/04/2024 1:25 PM VISUAL MERCHANDISING COORDINATOR): At goal on current therapy. Assessment & Plan (03/28/2024 12:24 PM CDT): At goal on current therapy. Assessment & Plan (12/13/2023 1:09 PM CDT): Due for lipid check. He is taking atorvastatin 80 mg daily. Assessment & Plan (06/14/2023 12:23 PM VISUAL MERCHANDISING COORDINATOR): At goal on current therapy. Assessment & Plan (02/14/2023 11:42 AM CDT): At goal on current therapy. Assessment & Plan (11/11/2022 12:04 PM CDT): At goal on current therapy. Assessment & Plan (08/09/2022 12:47 PM VISUAL MERCHANDISING COORDINATOR): At goal on current therapy. Assessment & Plan (05/11/2022 12:57 PM VISUAL MERCHANDISING COORDINATOR): At goal on current therapy. Assessment & Plan (02/08/2022 12:35 PM CDT): At goal on current therapy. Assessment & Plan (10/21/2021 9:48 PM CDT): LDL not at goal. Increase Lipitor to 80 mg daily. Assessment & Plan (07/23/2021 10:16 AM VISUAL MERCHANDISING COORDINATOR): At goal on current therapy. Assessment & Plan (04/23/2021 1:33 PM VISUAL MERCHANDISING COORDINATOR): At goal on current therapy. Resolved Problems Problem Noted Date Diagnosed Date Resolved Date Type 1 diabetes mellitus without complication 07/08/1901/01/2025 Medicare annual wellness visit, initial 07/08/2020 01/01/2025 Encounters Date Type Department Care Team Description 04/04/2025 10:00 AM CDT Office Visit [facility] [address] [address] Konrad De La Torre MD Type 1 diabetes mellitus with hyperglycemia (HCC) (Primary Dx); Balance disorder; Mixed hyperlipidemia; Vitamin D deficiency; Painful diabetic neuropathy (HCC); Encounter for immunization; Essential hypertension, benign from Last 3 Months Immunizations Immunization Administration Dates Next Due Influenza, Trivalent, High D ose, Split, Preservative Free, Intramuscular 04/04/2025 Influenza, Trivalent, Preservative Free, Intramu scular 06/25/2012 [...] on file Legal Sex Male 2:04 AM VISUAL MERCHANDISING COORDINATOR Gender Identity Male 10/21/2021 6:17 PM CDT Sexual Orientation Not on file Last Filed Vital Signs Vital Sign Reading Time Taken Comments Blood Pressure 120/60 04/04/2025 9:53 AM CDT Pulse 80 04/04/2025 9:53 AM CDT Temperature 36.4 C (97.6 F) 08/24/2023 3:15 PM CDT Respiratory Rate 18 09/28/2023 9:53 AM CDT Oxygen Saturation 96% 04/04/2025 9:53 AM CDT Inhaled Oxygen Concentration - - Weight 123.4 kg (272 lb) 04/04/2025 9:53 AM CDT Height 180.3 cm (5' 11) 04/04/2025 9:53 AM CDT Body Mass Index 37.94 04/04/2025 9:53 AM CDT Plan of Treatment Health Maintenance Due [...] - 2024-2 6 season) 2025 03/22/2023, 03/28/2022, 03/28/2022, Additional history exists Hemoglobin A1C 10/03/2025 04/04/2025, 2 08/2024, 09/30/2024, Additional history exists Albumin Creatinine Ratio, Urine 01/01/2026 01/01/2025, 12/13/2023, 08/09/2022, Additional history exists Lipid Panel 01/01/2026 01/01/2025, 07/0 08/2023, 08/09/2022, Additional history exists TSH Level 01/01/2026 01/01/2025, 07/0 08/2023, 08/09/2022, Additional history exists eGFR 01/01/2026 01/01/2025, 07/0 08/2023, 08/14/2023, Additional history exists Abdominal Aortic Aneurysm (A AA) Screen Completed 01/30/2018 Influenza Vaccine Completed 04/04/2025, , 03/22/2023, Additional history exists Medical Devices Implanted Type Area Manufacturing Manager Device Identifier Shelf Expiration Date Model / Serial / Lot Medtronic Inc Vectris 5mm 60cm 1x8 Electrode Mri Lead Neurostimulator [id number] - [id number] Implanted:Qty: 1 on 08/24/2023 by Dashawn Torres MD at [facility] N/A: Back Med[employer] Inc 08/01/2027 [id number] / / [id number] Med[employer]onic Inc Vectris 5mm 60cm 1x8 Electrode Mri Lead Neurostimulator [id number] - [id number] Implanted:Qty: 1 on 08/24/2023 by Dashawn Torres MD at [facility] N/A: Back [employer] Inc 08/01/2027 [id number] / / [id number] Med[employer]onic Inc Neurostimulator Implantable Chronic Pain [id number] - [id number] - [id number] Implanted:Qty: 1 on 08/24/2023 by Dashawn Torres MD at [facility] N/A: Back [employer] Inc 06/08/2024 [id number] / [id number] / Med[employer]onic Inc Envelope Absrb 2.7x2.5in Antibacterial Tyrx Medium Strl [id number] - [id number] Implanted:Qty: 1 on 08/24/2023 by Dashawn Torres MD at [facility] N/A: Back [employer] Inc 05/23/2024 [id number] / / [id number] Procedures Procedure Name Priority Date/Time Associated Diagnosis Comments POCT HEMOGLOBIN A1C Routine 04/04/2025 10:10 AM CDT Type 1 diabetes mellitus with hyperglycemia (HCC) COMPREHENSIVE METABOLIC PANEL Routine 01/01/2025 1:54 PM CDT Type 1 diabetes mellitus with hyperglycemia (HCC) THYROID FUNCTION CASCADE Routine 01/01/2025 1:54 PM CDT Type 1 diabetes mellitus with hyperglycemia (HCC) ALBUMIN CREATININE RATIO, URINE Routine 01/01/2025 1:08 PM CDT Type 1 diabetes mellitus with hyperglycemia (HCC) POCT LIPID PANEL Routine 01/01/2025 12:50 PM CDT Type 1 diabetes mellitus with hyperglycemia (HCC) Mixed hyperlipidemia CT ABDOMEN PELVIS W CONTRAST Schedule Routine, Read Routine (OP Routine) 01/30/2018 10:51 AM CDT Leg swelling from Last 3 Months or Most Recently Relevant to Health Maintenance Results * (ABNORMAL) POCT hemoglobin A1c (04/04/2025 10:10 AM CDT) Pathologist [facility] Hemoglobin A1C, POC 7.2(A) 4.0 - 5.6 % Capillary blood 04/04/2025 1 0:10 AM CDT us Konrad De La Torre MD POINT OF CARE TEST MARA HAIRSTON Final Result * Thyroid Function [place] (01/01/2025 1:54 PM CDT) Pathologist [facility] TSH 1.680 0.450 - 4.500 uIU/mL [facility] - 01 Comment: No apparent thyroid disorder. Additional testing not indicated. In rare instances, Secondary Hypothyroidism as well as Subclinical Hypothyroidism have been reported in some patients with normal TSH values. Blood 01/01/2025 1:54 PM CDT 01/01/2025 Narrative [facility] - 01/02/2025 12:10 PM CDT Performed at: [address] [place] [id number] Cash Processing Specialist: Chaka Hu PhD, Phone: [phone] us Arti Quinones AFTER SCHOOL DRIVER LAB BLOOD ORDERABLES Fin al Result [facility] - 01 * Comprehensive metabolic panel [...] - 01/02/2025 11:11 AM CDT Performed at: [place] [id number] Cash Processing Specialist: Chaka Hu PhD, Phone: [phone] us Arti Quinones AFTER SCHOOL DRIVER LAB BLOOD ORDERABLES Fin al [facility] - 01 * Albumin Creatinine Ratio, [...] - 01/02/2025 12:36 PM CDT Performed at: 01 - [facility] [address] [id number] Cash Processing Specialist: Chaka Hu PhD, Phone: [phone] Arti Quinones AFTER SCHOOL DRIVER LAB URINE ORDERABLES Fin al Result [facility] - 01 * (ABNORMAL) POCT lipid panel (01/01/2025 12:50 PM CDT) HDL, POC 33(A) >=40 mg/dL Triglycerides, POC 171(A) <=149 mg/dL LDL Cholesterol POC 45 <=129 mg/dL Chol/HDL Ratio, POC 3.4 NONE Non-HDL Cholesterol, POC 79 NONE mg/dL Cholesterol Total, POC 112 30 - 199 mg/dL Capillary blood 01/01/2025 1 2:50 PM CDT Arti Quinones AFTER SCHOOL DRIVER POINT OF CARE TEST ORDER CAROL ANN [...] Recently Relevant to Health Maintenance Insurance MEDICARE [facility] MEDICARE MEDICARE [employer] MEDICARE SUPPLEMENT MEDICARE [facility] MEDICARE Care Teams Rn Angiography Relationship Specialty Start Date End Date Konrad De La Torre MD PCP - General Endocrinology Diabetes & Metabolism 03/21/22
== END 2025-04-21 08:14 | disposition home or self-care (01) ==
LOC: CHSIMG 08:14
PROVIDERS: PCP Family Medicine; Visit Provider Orthopaedic Surgery
DX: Z47.89 Encounter for other orthopedic aftercare (principal)
CPT/HCPCS: 73630

== ENCOUNTER 2025-05-15 09:01 | Outpatient (CLI) | payer MEDICARE, SELFPAY ==
--- OUTSIDE RECORDS SUMMARY | 2025-05-15 09:40 | XMS_ITS | Clinical Summary ---
Author Organization [facility] Address [address] [place] [address] Care Team Providers Care Press Maintainer Name Role Phone Sigifredo Segovia MD Primary [...] Comments Blood Pressure 116/59 07/29/2019 12:15 PM FIELD ENUMERATOR Pulse 72 07/29/2019 12:15 PM FIELD ENUMERATOR Temperature 36.7 C (98.1 F) 07/29/2019 11:19 AM FIELD ENUMERATOR Respiratory Rate 16 07/29/2019 12:15 PM FIELD ENUMERATOR Oxygen Saturation 93% 07/29/2019 12:15 PM FIELD ENUMERATOR Inhaled Oxygen Concentration - - Weight 117.9 kg (260 lb) 07/29/2019 8:12 AM FIELD ENUMERATOR Height 180.3 cm (5' 11) 07/29/2019 8:12 AM FIELD ENUMERATOR Body Mass Index 36.26 07/29/2019 8:12 AM FIELD ENUMERATOR Plan of Treatment Health Maintenance Due Date [...] this topic Medical Devices Implanted Type Area Electronics Technology Instructor Device Identifier Shelf Expiration Date Model / Serial / Lot Pump Pump Description:Insulin pump Gas Sf6 Substitute Vitreous - [id number] Implanted:Qty: 1 on 07/29/2019 by Gerald Mckeon MD at [facility] Right: Eye [facility] 06/11/2020 [id number] / / [id number] Insurance MEDICARE [facility] Care Teams Press Maintainer Relationship Specialty Start Date End Date Sigifredo Segovia MD PCP - General INTERNAL MEDICINE 07/25/19
--- OUTSIDE RECORDS SUMMARY | 2025-05-15 09:40 | XMS_ITS | Clinical Summary ---
Author Organization [facility] Address [address] [place] [address] Care Team Providers Care Entry Level Sales Consultant Name Role Phone Konrad De La Torre MD Primary Care Provider Allergies No known active allergies Medications aspirin 81 mg tablet Take 1 tablet (81 mg total) by mouth daily 04/02/20 12 Active finasteride (PROSCAR) 5 mg tablet Take 1 tablet (5 mg total) by mouth daily Active insulin syringe-needle,di spos. 0.5 mL 30 gauge x 5/16 syringe Inject insulin tid when insulin pump fails 200 each 1 05/12/20 22 Active diazePAM (VALIUM) 5 mg tablet TAKE 1 TABLET(5 MG) BY MOUTH EVERY NIGHT NEEDED FOR SLEEP 30 tablet 06/08/20 22 Active QUEtiapine (SEROquel) 50 mg tablet Take 1 tablet (50 mg total) by mouth nightly 90 tablet 1 02/15/20 23 Active carvediloL (COREG) 25 mg tablet Take 1 tablet (25 mg total) by mouth 2 (two) times a day with meals Active albuterol HFA (PROVENTIL HFA,VENTOLIN HFA,PROAIR HFA) 90 mcg/actuation inhaler Inhale 1 puff every 4 (four) hours as needed 08/01/19 24 Active doxycycline monohydrate (MONODOX) 100 mg capsule Take 1 capsule (100 mg total) by mouth 2 (two) times a day For 10 days, last dose on 08/22/23 08/09/19 24 Active predniSONE (DELTASONE) 20 mg tablet Take 2 tablets (40 mg) by mouth daily Last dose 3/4 24 02/26/20 24 Active glucagon 1 mg kitIndications:Ty pe 1 diabetes mellitus with hyperglycemia (HCC) Use for severe hypoglycemia 1 kit 3 10/19/19 24 Active lisinopriL (PRINIVIL,ZESTRIL ) 10 mg tablet TAKE 1 TABLET(10 MG) BY MOUTH DAILY 90 tablet 3 03/11/20 24 Active insulin lispro (HumaLOG, ADMELOG) 100 unit/mL vial for injection USE DIRECTED WITH INSULIN PUMP, MAX DAILY DOSE OF 145 UNITS 130 mL 3 05/22/20 24 Active isosorbide mononitrate ER (IMDUR) 30 mg 24 hr tablet TAKE 1 TABLET BY MOUTH EVERY DAY 90 tablet 3 06/03/20 24 Active busPIRone (BUSPAR) 10 mg tablet TAKE 1 TABLET(10 MG) BY MOUTH TWICE DAILY 180 tablet 3 07/08/19 25 Active traZODone (DESYREL) 50 mg tablet Take 1 tablet (50 mg total) by mouth nightly 90 tablet 3 10/01/19 25 Active tamsulosin (FLOMAX) 0.4 mg extended release capsule Take 1 capsule (0.4 mg total) by mouth daily 90 capsule 3 10/01/19 25 Active atorvastatin (LIPITOR) 80 mg tablet Take 1 tablet (80 mg total) by mouth daily 90 tablet 3 10/01/19 25 Active insulin glargine 100 unit/mL (3 mL) pen for injection Inject 75 Units under the skin daily In event of pump failure 15 mL 01/02/20 25 Active famotidine (PEPCID) 20 mg tablet Take 1 tablet (20 mg total) by mouth 2 (two) times a day 180 tablet 01/02/20 25 026 Active cetirizine (ZyrTEC) 10 mg tablet Take 1 tablet (10 mg total) by mouth daily as needed for allergies 90 tablet 01/02/20 25 026 Active clobetasoL (TEMOVATE) 0.05 % cream Apply topically 2 (two) times a day 60 g 01/02/20 25 Active pregabalin (LYRICA) 150 mg capsule TAKE 1 CAPSULE(150 MG) BY MOUTH TWICE DAILY 180 capsule 02/18/[address] (CYMBALTA) 60 mg capsule TAKE 1 CAPSULE(60 MG) BY MOUTH DAILY 90 capsule 3 03/03/20 25 Active traMADoL (ULTRAM) 50 mg tablet Take 1 tablet (50 mg total) by mouth every 4 (four) hours as needed for pain 180 tablet 03/28/20 25 Active Active Problems Problem Noted Date Diagnosed Date [...] episode Assessment & Plan (07/04/2024 2:01 PM ACCOUNTS PAYABLE ACCOUNTANT): Stop sertraline as he is already taking [...] and I recommended that he see a silk screen layout drafter for ongoing care after the foot has healed. Assessment & Plan (09/30/2024 12:17 PM CDT): Due to worsening pain, will increase tramadol to 6 pills per day. Continue Cymbalta and Lyrica. Assessment & Plan (07/04/2024 2:02 PM ACCOUNTS PAYABLE ACCOUNTANT): Continue current regimen. SCS is in place. [...] medications. Assessment & Plan (06/14/2023 12:24 PM ACCOUNTS PAYABLE ACCOUNTANT): Permanent SCS planned with Dr. Torres. Assessment & Plan (02/14/2023 11:43 AM CDT): Continue Lyrica, Cymbalta, tramadol. Follow up with Dr. Torres. Assessment & Plan (11/11/2022 12:05 PM CDT): Refractory to pregabalin, Cymbalta, tramadol. Refer to Dr. Torres for consideration of SCS. Assessment & Plan (08/09/2022 12:48 PM ACCOUNTS PAYABLE ACCOUNTANT): Stable on current medications. Not interested in SCS at this time. Assessment & Plan (05/11/2022 12:58 PM ACCOUNTS PAYABLE ACCOUNTANT): On tramadol and Lyrica. Add Cymbalta. We [...] today. Assessment & Plan (07/04/2024 2:01 PM ACCOUNTS PAYABLE ACCOUNTANT): A1c near goal. Be sure to bolus [...] exam. Assessment & Plan (06/14/2023 12:24 PM ACCOUNTS PAYABLE ACCOUNTANT): A1c above goal. Increase basal rate from [...] Units/hr. Assessment & Plan (08/09/2022 12:48 PM ACCOUNTS PAYABLE ACCOUNTANT): A1c above goal. Increased basal from MN to 8AM from 1.75 Units/hr to 1.85 Units/hr. Assessment & Plan (05/11/2022 12:57 PM ACCOUNTS PAYABLE ACCOUNTANT): A1c slightly above goal. Increase overnight basal [...] today. Assessment & Plan (07/23/2021 10:17 AM ACCOUNTS PAYABLE ACCOUNTANT): A1c at goal on current therapy. Labs due today. He will schedule eye exam. Assessment & Plan (04/23/2021 1:32 PM ACCOUNTS PAYABLE ACCOUNTANT): At goal on current therapy. Refer to Dr. Shah's group in ophthalmology. Labs current. 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 Essential hypertension, benign 10/04/2018 Assessment & Plan (04/04/2025 8:51 PM CDT): At goal on current therapy. Assessment & Plan (09/30/2024 12:16 PM CDT): At goal on current therapy. Assessment & Plan (07/04/2024 2:01 PM ACCOUNTS PAYABLE ACCOUNTANT): At goal on current therapy. Assessment & Plan (03/28/2024 11:38 AM CDT): At goal on current therapy. Assessment & Plan (12/13/2023 1:09 PM CDT): BP low-normal with orthostasis. Decrease lisinopril dose to 10 mg daily. Assessment & Plan (09/12/2023 4:07 PM CDT): At goal on current therapy. Assessment & Plan (06/14/2023 12:23 PM ACCOUNTS PAYABLE ACCOUNTANT): Still having orthostasis and BP is low-normal. Halve carvedilol to 12.5 mg BID. Assessment & Plan (02/14/2023 11:42 AM CDT): Due to ongoing low-normal blood pressures and orthostatic symptoms, will reduce lisinopril dose to 5 mg daily. Assessment & Plan (11/11/2022 12:04 PM CDT): At goal on current therapy. Assessment & Plan (08/09/2022 12:47 PM ACCOUNTS PAYABLE ACCOUNTANT): BP still low-normal and he is lightheaded. Halve dose of lisinopril to 10 mg daily. Assessment & Plan (05/11/2022 12:57 PM ACCOUNTS PAYABLE ACCOUNTANT): At goal on current therapy. Assessment & Plan (02/08/2022 12:35 PM CDT): BP low with associated lightheadedness. Cut lisinopril dose in half to 20 mg daily. Assessment & Plan (10/21/2021 9:48 PM CDT): At goal on current therapy. Assessment & Plan (07/23/2021 10:16 AM ACCOUNTS PAYABLE ACCOUNTANT): At goal on current therapy. Assessment & Plan (04/23/2021 1:32 PM ACCOUNTS PAYABLE ACCOUNTANT): At goal on current therapy. Mixed hyperlipidemia 10/04/2018 Assessment & Plan (04/04/2025 8:51 PM CDT): At goal on current therapy. Assessment & Plan (09/30/2024 12:16 PM CDT): At goal on current therapy. Assessment & Plan (07/04/2024 1:25 PM ACCOUNTS PAYABLE ACCOUNTANT): At goal on current therapy. Assessment & Plan (03/28/2024 12:24 PM CDT): At goal on current therapy. Assessment & Plan (12/13/2023 1:09 PM CDT): Due for lipid check. He is taking atorvastatin 80 mg daily. Assessment & Plan (06/14/2023 12:23 PM ACCOUNTS PAYABLE ACCOUNTANT): At goal on current therapy. Assessment & Plan (02/14/2023 11:42 AM CDT): At goal on current therapy. Assessment & Plan (11/11/2022 12:04 PM CDT): At goal on current therapy. Assessment & Plan (08/09/2022 12:47 PM ACCOUNTS PAYABLE ACCOUNTANT): At goal on current therapy. Assessment & Plan (05/11/2022 12:57 PM ACCOUNTS PAYABLE ACCOUNTANT): At goal on current therapy. Assessment & Plan (02/08/2022 12:35 PM CDT): At goal on current therapy. Assessment & Plan (10/21/2021 9:48 PM CDT): LDL not at goal. Increase Lipitor to 80 mg daily. Assessment & Plan (07/23/2021 10:16 AM ACCOUNTS PAYABLE ACCOUNTANT): At goal on current therapy. Assessment & Plan (04/23/2021 1:33 PM ACCOUNTS PAYABLE ACCOUNTANT): At goal on current therapy. Resolved Problems Problem Noted Date Diagnosed Date Resolved Date Type 1 diabetes mellitus without complication 07/08/1901/01/2025 Medicare annual wellness visit, initial 07/08/2020 01/01/2025 Encounters Date Type Department Care Team Description 04/04/2025 10:00 AM CDT Office Visit [facility] [address] [id number] Konrad De La Torre MD Type 1 [...] on file Legal Sex Male 2:04 AM ACCOUNTS PAYABLE ACCOUNTANT Gender Identity Male 10/21/2021 6:17 PM CDT [...] Additional history exists Hemoglobin A1C 10/03/2025 04/04/2025, 07/2 08/2024, 09/30/2024, Additional history exists Albumin Creatinine [...] history exists Medical Devices Implanted Type Area Coat Operator Insulator Device Identifier Shelf Expiration Date Model / Serial / Lot Keelr Inc Vectris 5mm 60cm 1x8 Electrode Mri Lead Neurostimulator [id number] - [id number] Implanted:Qty: 1 on 08/24/2023 by Dashawn Torres MD at [facility] N/A: Back [employer] 08/01/2027 [id number] / / [id number] Medtronic Inc Vectris 5mm 60cm 1x8 Electrode Mri Lead Neurostimulator [id number] - [id number] Implanted:Qty: 1 on 08/24/2023 by Dashawn Torres MD at [facility] N/A: Back [employer] 08/01/2027 [id number] / / [id number] Med[employer]onic Inc Neurostimulator Implantable Chronic Pain [id number] - [id number] - [id number] Implanted:Qty: 1 on 08/24/2023 by Dashawn Torres MD at [facility] N/A: Back [employer] 06/08/2024 [id number] / [id number] / Med[employer]onic Inc Envelope Absrb 2.7x2.5in Antibacterial Tyrx Medium Strl [id number] - [id number] Implanted:Qty: 1 on 08/24/2023 by Dashawn Torres MD at [facility] N/A: Back [employer] 05/23/2024 [id number] / / [id number] Procedures Procedure Name Priority Date/Time Associated Diagnosis [...] hemoglobin A1c (04/04/2025 10:10 AM CDT) Pathologist [facility] Hemoglobin A1C, POC 7.2(A) 4.0 - 5.6 % Capillary blood 04/04/2025 1 0:10 AM CDT us Konrad De La Torre MD POINT OF CARE TEST ORDFernandez YOVANNY Final Result * Thyroid Function Kermit (01/01/2025 1:54 PM CDT) Pathologist [facility] TSH 1.680 0.450 - 4.500 uIU/mL [facility] - 01 Comment: No apparent thyroid disorder. Additional testing not indicated. In rare instances, Secondary Hypothyroidism as well as Subclinical Hypothyroidism have been reported in some patients with normal TSH values. Blood 01/01/2025 1:54 PM CDT 01/01/2025 Narrative [facility] - 01/02/2025 12:10 PM CDT Performed at: [address] [place] [id number] Cinder Crane Operator: Chaka Hu PhD, Phone: [phone] us Arti Quinones MARKET ANALYSIS DIRECTOR LAB BLOOD ORDERABLES Fin al Result [facility] - 01 * Comprehensive metabolic panel (01/01/2025 1:54 PM CDT) Pathologist [facility] Glucose 73 70 - 99 mg/dL [facility] [...] - 01/02/2025 11:11 AM CDT Performed at: [address] [place] [id number] Cinder Crane Operator: Chaka Hu PhD, Phone: [phone] Arti Quinones MARKET ANALYSIS DIRECTOR LAB BLOOD ORDERABLES Fin al Result [facility] - 01 * Albumin Creatinine Ratio, [...] - 01/02/2025 12:36 PM CDT Performed at: [address] [place] [id number] Cinder Crane Operator: Chaka Hu PhD, Phone: [phone] Arti Quinones NP LAB URINE ORDERABLES Fin al Result [facility] - 01 * (ABNORMAL) POCT lipid [...] symptoms of early appendicitis. Electronically signed by: Jeo Wade M.D. Andres Razo MD IMG CT PROCEDURES Final Result from Last 3 Months or Most Recently Relevant to Health Maintenance Insurance [facility]ICARE [facility] Member Subscriber Plan / Payer ( fective 2009-Present) Name:Taylor Barrera Relation to Subscriber:Self Name:Taylor Barrera Payer ID:[id number] (NAIC) Type: OTHER Address: [address] [place] [id number] MEDICARE MEDICARE [facility] MEDICARE SUPPLEMENT MEDICARE [facility] MEDICARE Care Teams Entry Level Sales Consultant Relationship Specialty Start Date End Date Konrad De La Torre MD PCP - General Endocrinology Diabetes & Metabolism 03/21/22
--- OUTSIDE RECORDS SUMMARY | 2025-05-15 09:40 | XMS_ITS | Encounter Summary ---
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 Gender Identity Male 10/21/2021 6:17 PM CDT [...] on filedocumented in this encounter Care Teams Fire Management Officer Relationship Specialty Start Date End Date Sigifredo Segovia MD [id number] [address] PCP - General 10/17/16 04/20/21 Konrad De La Torre MD [address] [email or web address] [facility] [employer] [address] [address] PCP - General Endocrinology Diabetes & Metabolism 04/21/21 02/07/22 Armani Skinner DO [address] [place] [address] PCP - General Family Medicine 02/08/22 03/20/22 Konrad De La Torre MD [address] [facility] [employer] [address] [address] PCP - General Endocrinology Diabetes & Metabolism 03/21/22 documented as of this encounter
--- OUTSIDE RECORDS SUMMARY | 2025-05-15 09:40 | XMS_ITS | Encounter Summary ---
Author Organization [facility] Address [address] [place] [address] Care Team Providers Care Scientist Engineer Name Role Phone Eden Morrissey MD Primary Care Provider [phone] Konrad De La Torre MD Primary Care Provider Armani Skinner DO Primary Care Provider Konrad De La Torre MD Primary Care Provider Encounter Details Date Type Department Care Team (Late st Contact Info) Description 12/27/2017 Community Orders [facility] EpicCare Link Eden Morrissey MD [address] [place] [address] Localized swelling, mass and lump, lower limb, left (Primary Dx); Claudication of both lower extremities; Bilateral leg pain; Left leg pain Social History Tobacco Use Types Packs/Day Years Used Date Smoking Tobacco: Former Sex and Gender Information Value Date Recorded Sex Assigned at Not on file Legal Sex Male 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 Gender Identity Male 10/21/2021 6:17 PM CDT Sexual Orientation Not on file documented as of this encounter Plan of Treatment Not on file documented as of this encounter Results * US Arterial Doppler Lower Extremity Bilateral (01/03/2018 10:22 AM CDT) Anatomical Region Laterality Modality Vascular Bilateral Ultrasound 01/03/2018 9:49 AM CDT Narrative 01/03/2018 10:23 AM CDT [facility] - Department of Vascular Surgery, Vascular Laboratory [address] [place] [address] Lower Extremity Arterial Doppler Report Patient Name: [...] mmHg Lt Brachial Pressure 126 mmHg Rt OVERHEAD IRRIGATOR Pressure 110 mmHg Lt OVERHEAD IRRIGATOR Pressure 123 mmHg Rt DPA Pressure 109 mmHg Lt DPA Pressure 110 mmHg Rt 1st Digit Pressure 89 mmHg Lt 1st Digit Pressure 108 mmHg Rt PT MARCOS Resting 0.85 Lt PT MARCOS Resting 0.95 Rt AT MARCOS Resting 0.84 Lt AT MARCOS Resting 0.85 Rt Digit/Arm Index 0.69 Lt Digit/Arm Index 0.84 Findings: Performing Physical Education Specialist: Meri Loaiza RVT. Janette Vásquez RVT, [facility]. Bilateral All Levels : [...] performed. Electronically Signed By: Breezy Núñez MD [facility] 2018-01-03 10:23:04 CDT CC: CC: Procedure Note Breezy Núñez MD - 01/03/2018 [facility] - Department of Vascular Surgery,Vascular Laboratory [address] [place] [address] Lower Extremity Arterial Doppler Report Patient Name: TAYLOR BARRERA TPatient ID: [id number] : [id number] Date: 01/03/2018 9:49:00 AM Gender: MAccession #: [id number] Tech: Jody Loaiza RVTLocation: Ref.Physician: Michelle MORRISSEY(Cm): BSA: Weight(Kg): Quality: AdequateOrder Physician: EDEN MORRISSEY Procedures: Arterial Report: Bilateral lower extremity arterial Doppler exam at rest. Indications: Claudication of both lower extremities . Bilateral leg pain. Measurements: Right - Left - Measurement Value Normal Range MeasurementValue Normal Range Rt Brachial Pressure 129 mmHg Lt Brachial Bxyepnmx691 mmHg Rt OVERHEAD IRRIGATOR Pressure 110 mmHg Lt OVERHEAD IRRIGATOR Qgujboqr672 mmHg Rt DPA Pressure 109 mmHg Lt DPA Xkjaektg834 mmHg Rt 1st Digit Pressure 89 mmHg Lt 1st Digit Qughpytf106 mmHg Rt PT MARCOS Resting 0.85 Lt PT MARCOS Resting0.95 Rt AT MARCOS Resting 0.84 Lt AT MARCOS Resting0.85 Rt Digit/Arm Index 0.69 Lt Digit/Arm Index0.84 Findings: Performing Physical Education Specialist: Meri Loaiza RVT. Janette Vásquez RVT, RDMS. [...] performed. Electronically Signed By: Breezy Núñez MD [facility] 2018-01-03 10:23:04 CDT CC: CC: us Eden Morrissey MD IMG US PROCEDURES Final Result * US Vein Duplex Lower Extremity Left Limited (12/27/2017 2:45 PM CDT) Anatomical Region Laterality Modality Vascular Left Ultrasound 12/27/2017 2:30 PM CDT Narrative 12/27/2017 4:37 PM CDT [facility] - Department of Vascular Surgery, Vascular Laboratory [address] [place] [address] Lower Extremity Venous Ultrasound Report Patient Name: [...] limb, left Left leg pain. Findings: Performing Physical Education Specialist: Odalis Moncada RVT. Left: Venous Doppler signals [...] performed. Electronically Signed By: Breezy Núñez MD [facility] 2017-12-27 16:37:04 CDT CC: CC: Procedure Note Breezy Núñez MD - 12/27/2017 [facility] - Department of Vascular Surgery,Vascular Laboratory [address] [place] [address] Lower Extremity Venous Ultrasound Report Patient Name: TAYLOR BARRERA TPatient ID: [id number] : 1945 (72y 3m)Study Date: 12/27/2017 2:30:57 PM Gender: MAccession #: [id number] Tech: DBLocation: Ref.Physician: EDEN MORRISSEYHeight(Cm): BSA: Weight(Kg): [...] limb, left Left leg pain. Findings: Performing Physical Education Specialist: Odalis Moncada RVT. Left: Venous Doppler signals [...] performed. Electronically Signed By: Breezy Núñez MD [facility] 2017-12-27 16:37:04 CDT CC: CC: Eden Morrissey MD IMRUST PROCEDURES Final Result documented in this encounter [...] limb documented in this encounter Care Teams Scientist Engineer Relationship Specialty Start Date End Date Eden Morrissey MD [address] [address] PCP - General 10/17/16 04/20/21 Konrad De La Torre MD [address] [address] PCP - General Endocrinology Diabetes & Metabolism 04/21/21 02/07/22 Armani Skinner DO [facility] [place] [address] PCP - General Family Medicine 02/08/22 03/20/22 Konrad De La Torre MD [address] [address] PCP - General Endocrinology Diabetes & Metabolism 03/21/22 documented as of this encounter
[2025-05-15 10:17] LABS: Alanine Aminotransferase 16 U/L (6-50); Albumin Level 3.8 g/dL (3.5-5.1); Alkaline Phosphatase 106 U/L (38-126); Anion Gap 9 mmol/L (4-12); Aspartate Amino Transferase 23 U/L (17-59); Bilirubin,Total 0.4 mg/dL (0.2-1.3); Blood Urea Nitrogen 15 mg/dL (9-20); Calcium 9.1 mg/dL (8.4-10.2); Carbon Dioxide 29 mmol/L (22-30); Chloride 104 mmol/L (98-107); Estimated Glomerular Filt Rate > 60; Glucose 131 mg/dL (65-110); Osmolality Calculated 296 mOsm/kg (285-295); Potassium 4.9 mmol/L (3.4-5.0); Sodium 142 mmol/L (137-145); Total Protein 6.5 g/dL (6.3-8.2)
[2025-05-15 10:48] LABS: Prostate Specific Antigen 0.6 ng/mL (< OR = 4.0)
== END 2025-05-15 09:02 | disposition home or self-care (01) ==
PROVIDERS: PCP Family Medicine
DX: N40.1 Benign prostatic hyperplasia with lower urinary tract symptoms (principal)
CPT/HCPCS: 36415; 80053; 84153